=== PATIENT | female | born 1965 | race Caucasian/White ===

== ENCOUNTER 2016-03-15 16:38 | Emergency (ER) | payer OTHER ==
[2016-03-15 18:28] VITALS: BP 115/58
[2016-03-15] MEDS ORDERED: Acetaminophen TAB* 325 MG PO ONE (18:49)
--- NOTE | 2016-03-15 19:05 | UC ---
HPI Febrile Illness - HPI Summary HPI Summary: pt c/o fever, chills and generalized malaise X 12 hours. Pt is on dialysis 3 X' s per week and did not go for dialysis today. - History of Current Complaint Chief Complaint: UCGeneralIllness Time Seen by Provider: 03/15/16 18:39 Hx Obtained From: Patient Onset/Duration: Started Hours Ago, Still Present Timing: Constant Initial Severity: Moderate Current Severity: Mild Aggravating Factors: Nothing Alleviating Factors: Other: - has not tried anything to relieve symptoms Associated Signs and Symptoms: Chills, Myalgia - Additional Pertinent History Diagnosis From Previous Visit: pt has CKD, dialysis 3 X's per week . 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 Taken: Other: - none - Allergy/Home Medications Allergies/Adverse Reactions: Allergies Allergy/AdvReac Type Severity Reaction Status Date / Time No Known Allergies Allergy Verified 03/15/16 18:28 Home Medications: Home Medications Cholecalciferol [Vitamin D3] 50,000 unit PO WEEKLY 03/15/16 [History Confirmed 03/15/16] Torsemide [Torsemide 100 MG] 50 mg PO EVERY OTHER DAY 03/15/16 [History Confirmed 03/15/16] PMH/Surg Hx/FS Hx/Imm Hx Endocrine/Hematology History: Reports: Hx Diabetes - Type 1 diabetes mellitus, Hx Thyroid Disease - hypothyroid, Hx Anemia - CONTROL WITH MED Cardiovascular History: Reports: Hx Coronary Artery Disease - CARDIAC STENT X 2 , Hx Hypertension - CONTROL WITH MEDS, Other Cardiovascular Problems/Disorders - CHOLESTEROL CONTROL WITH MEDS Respiratory History: Denies: Hx Asthma GI History: Denies: Hx Jaundice, Hx Ulcer History: Reports: Hx Chronic Renal Failure, Hx Dialysis Musculoskeletal History: Reports: Hx Arthritis - BILATERAL HANDS, ANKLES, Hx Tendonitis - HANDS, Other Musculoskeletal History - RIGHT RING FINGER TRIGGER Sensory History: Reports: Hx Cataracts - BILATERAL, Hx Contacts or Glasses - GLASSES Denies: Hx Hearing Aid Opthamlomology History: Reports: Hx Cataracts - BILATERAL, Hx Contacts or Glasses - GLASSES Neurological History: Reports: Hx Nerve Disease - DIABETIC NEUROPATHY BILATERAL FEET - Surgical History Surgery Procedure, Year, and Place: TRIGGER RELEASE X 4, ( 1 DONE AT [facility]) . 1989' RIGHT 5th TOE SURGERY,. 06/2012 BILATERAL CATARACT EXTRACTION WITH IOL IMPLANT, [facility]. 2014 CARDIAC STENTS X 2,. FISTULA PLACEMENT. 02/2014 PERTIONEAL DIALYSIS CATHETER INSERTION Hx Anesthesia Reactions: No Infectious Disease History: No Infectious Disease History: Denies: Hx Clostridium Difficile, Hx Hepatitis, Hx Human Immunodeficiency Virus (HIV), Hx of Known/Suspected MRSA, Hx Shingles, Hx Tuberculosis, Hx Known/ Suspected VRE, Hx Known/Suspected VRSA, History Other Infectious Disease, Traveled Outside the [place] in Last 30 Days - Family History Known Family History: Positive: Diabetes - Mom Type II - Social History Occupation: Employed Full-time Alcohol Use: Rare Substance Use Type: Reports: None Smoking Status (MU): Never Smoked Tobacco Review of Systems Constitutional: Fever, Chills, Fatigue Skin: Negative Eyes: Negative ENT: Negative Respiratory: Negative Cardiovascular: Negative Gastrointestinal: Negative Genitourinary: Negative Motor: Negative Neurovascular: Negative Musculoskeletal: Myalgia Neurological: Negative Psychological: Negative All Other Systems Reviewed And Are Negative: Yes Physical Exam Triage Information Reviewed: Yes Appearance: Well-Appearing Vital Signs: Initial Vital Signs Temp 100.8 F 03/15/16 18:20 Pulse 87 03/15/16 18:20 Resp 16 03/15/16 18:20 BP 115/58 03/15/16 18:20 Pulse Ox 97 03/15/16 18:20 Vital Signs Reviewed: Yes Eye Exam: Normal ENT Exam: Normal Neck exam: Normal Respiratory Exam: Normal Cardiovascular: Positive: Murmur:Sys:Grade _?_/ Musculoskeletal Exam: Normal Neurological Exam: Normal Psychological Exam: Normal Skin Exam: Normal Course/Dx - Course Course Of Treatment: I disucssed with the pt that she is to f/u with her bookkeeping teacher tomorrow. additonally, I discussed with the pt that if she has any change in her symptoms that she is to seek a higher level of care as soon as possible. Pt verbalized understanding and agreed to plan of care. - Febrile Illness Differential Diagnoses: Other: - viral syndrome - Diagnoses Clinic Provider Diagnoses: viral syndrome Discharge - Discharge Plan Condition: Stable Disposition: HOME Patient Education Materials: Viral Syndrome (ED)
== END 2016-03-15 19:22 | disposition home or self-care (01) ==
LOC: UCCORT 16:38
DX: B34.9 Viral infection, unspecified (principal); E78.5 Hyperlipidemia, unspecified; I12.9 Hypertensive chronic kidney disease with stage 1 through stage 4 chronic kidney disease, or unspecified chronic kidney disease; N18.9 Chronic kidney disease, unspecified; Z99.2 Dependence on renal dialysis; Z98.61 Coronary angioplasty status; Z98.42 Cataract extraction status, left eye; Z98.41 Cataract extraction status, right eye; Z96.1 Presence of intraocular lens
CPT/HCPCS: 87502; 99212; A9270-GY; G0463

== ENCOUNTER 2016-09-16 16:24 | Emergency (ER) | payer OTHER ==
[2016-09-16 16:33] VITALS: BP 155/78
--- NOTE | 2016-09-16 16:51 | UC ---
Minor Trauma HPI - HPI Summary HPI Summary: 51 yo female slipped going down stairs on 09/11 c/o left sided back pain hurts to lay down and sit hurts to twist/bend and take in a deep breathe unable to sleep last PM - History of Current Complaint Chief Complaint: UCBackPain Stated Complaint: LEFT BACK/HIP PAIN FELL 09/11 Time Seen by Provider: 09/16/16 16:43 Hx Obtained From: Patient Hx Last Menstrual Period: YEARS Onset/Duration: Sudden Onset, Lasting Days Onset Of Pain: Immediate Severity Initially: Moderate Severity Currently: Moderate Pain Intensity: 6 - worse laying down Pain Scale Used: 0-10 Numeric Mechanism Of Injury: Blunt Trauma - fall and hit corner of step Aggravating Factor(s): Ambulation, Coughing, Deep Breaths, Movement, Weight Bearing Alleviating Factor(s): Rest Associated Signs And Symptoms: Positive: Ecchymosis - Allergies/Home Medications Allergies/Adverse Reactions: Allergies Allergy/AdvReac Type Severity Reaction Status Date / Time No Known Allergies Allergy Verified 09/16/16 16:34 Home Medications: Home Medications B-Complex W/ C & Folic Acid [Gabrielle-Kenrick] 1 tab PO DAILY 09/16/16 [History Confirmed 09/16/16] Bp Medicine EVERY OTHER DAY 09/16/16 [History] PMH/Surg Hx/FS Hx/Imm Hx Endocrine History: Diabetes Cardiovascular History: Hypertension GI/ History: Renal Disease - Surgical History Surgical History: Yes Surgery Procedure, Year, and Place: TRIGGER RELEASE X 4, ( 1 DONE AT [facility]) . 1989' RIGHT 5th TOE SURGERY,. 06/2012 BILATERAL CATARACT EXTRACTION WITH IOL IMPLANT, [facility] [place]. 2013 CARDIAC STENTS X 2,. FISTULA PLACEMENT. 02/2014 PERTIONEAL DIALYSIS CATHETER INSERTION - Family History Known Family History: Positive: Cardiac Disease, Hypertension, Diabetes - Mom Type II - Social History Alcohol Use: Rare Substance Use Type: None Smoking Status (MU): Never Smoked Tobacco - Immunization History Most Recent Influenza Vaccination: 01/02 Review of Systems Constitutional: Negative Skin: Bruising Eyes: Negative ENT: Negative Respiratory: Negative Cardiovascular: Negative Gastrointestinal: Negative Genitourinary: Negative Motor: Negative Neurovascular: Negative Musculoskeletal: Myalgia Neurological: Negative Psychological: Negative All Other Systems Reviewed And Are Negative: Yes Physical Exam Triage Information Reviewed: Yes Appearance: Well-Appearing, No Pain Distress, Well-Nourished Vital Signs: Initial Vital Signs Temp 97.5 F 09/16/16 16:29 Pulse 87 09/16/16 16:29 Resp 17 09/16/16 16:29 BP 155/78 09/16/16 16:29 Pulse Ox 98 09/16/16 16:29 Vital Signs Reviewed: Yes Eyes: Positive: Conjunctiva Clear ENT: Positive: Hearing grossly normal. Negative: Nasal congestion, Nasal drainage, Trismus, Muffled/hoarse voice Neck: Positive: Nontender, No Lymphadenopathy Respiratory: Positive: Lungs clear, Normal breath sounds, No respiratory distress Cardiovascular: Positive: RRR, No Murmur Musculoskeletal: Positive: ROM Intact, No Edema Neurological: Positive: Alert Psychological Exam: Normal Skin Exam: Normal Minor Trauma Course/Dx - Differential Dx/Diagnosis Provider Diagnoses: left posterior rib contusion. left gluteal contusion Discharge - Discharge Plan Condition: Stable Disposition: HOME Prescriptions: HYDROcodone/ACETAMIN 5-325 MG* [[place] 5-325 TAB*] 1 tab PO Q4H PRN #20 tab MDD 4 PRN Reason: Pain Patient Education Materials: Contusion in Adults (ED), Rib Contusion (ED) Referrals: Shama Husain, [employer] [Primary Care Provider] - 1 Week (if not better) Additional Instructions: rest ice take narcotic sparingly recheck for new or worsening symptoms Images Front/Back of Body, Lg (Loving): 1 - tender/ecchymotic 2 - tender
--- NOTE | 2016-09-16 17:16 | RAD ---
INDICATION: Injury. Pelvic pain. COMPARISON: February 14, 2014 TECHNIQUE: A single AP view of the pelvis is submitted. FINDINGS: Osseous structures: No acute bony findings SI joints and symphysis: Intact Soft tissues: No acute soft tissue abnormalities. There are vascular calcifications. There are phleboliths. Other: None IMPRESSION: NO ACUTE BONY FINDINGS.
--- NOTE | 2016-09-16 17:24 | RAD ---
INDICATION: Left rib pain COMPARISON: None TECHNIQUE: Multiple views of the ribs were obtained. FINDINGS: Bones: There is no evidence of acute rib fracture. There is a healed posterior lateral left seventh rib fracture LUNGS: The lungs are clear. There is no pneumothorax. Pleural spaces: There is no evidence of hemothorax. Other: None IMPRESSION: NO ACUTE RIB FRACTURE.
== END 2016-09-16 17:49 | disposition home or self-care (01) ==
LOC: UCCORT 16:24
DX: S20.212A Contusion of left front wall of thorax, initial encounter (principal); S30.0XXA Contusion of lower back and pelvis, initial encounter; I10 Essential (primary) hypertension; E11.9 Type 2 diabetes mellitus without complications; W10.9XXA Fall (on) (from) unspecified stairs and steps, initial encounter; Y92.9 Unspecified place or not applicable
CPT/HCPCS: 72170; 99212; G0463

== ENCOUNTER → 2017-05-20 06:58 | Day surgery (SDC) | payer MEDICARE, OTHER ==
--- NOTE | 2017-05-14 23:32 | HP ---
PREOPERATIVE HISTORY AND PHYSICAL: DATE OF ADMISSION/SURGERY: 05/20/17 - [facility] DATE OF OFFICE VISIT/ENCOUNTER: 04/23/17 ATTENDING SURGEON: Pam Carrillo MD * (DICTATED BY MAGDALENA GUZMAN) PROCEDURE: Left index and ring finger trigger finger releases. CHIEF COMPLAINT: Left index and ring finger triggering. HISTORY OF PRESENT ILLNESS: This is a 51-year-old female, who complains of triggering of the left index and ring finger that has been going on for some time now. The index finger is particularly painful. The ring finger triggers and locks more fully. She has had past trigger finger releases and would like to proceed with trigger finger release and forego injection. She is a diabetic. She has chronic renal failure and is on dialysis. She has consented to proceed with surgical intervention at this time. PAST MEDICAL HISTORY: 1. Diabetes. 2. Hypothyroidism. 3. Chronic renal failure/dialysis. 4. History of ketoacidosis. 5. Hypertension. 6. Hypercholesterolemia. 7. Heart disease. 8. Restless legs syndrome. PAST SURGICAL HISTORY: 1. Cardiac stent placement 2013. 2. Right trigger finger and left trigger finger releases. 3. Right foot surgery. 4. Fistula placement in her left arm. 5. Left shoulder surgery. CURRENT MEDICATIONS: 1. Aspirin 325 mg daily. 2. Auryxia 1 g (210 mg). 3. Crestor 10 mg daily. 4. Gabapentin 800 mg daily. 5. Humalog pump. 6. Levothyroxine sodium 100 mcg daily. 7. Lisinopril daily. 8. NovoLog 100 units. 9. Plavix 75 mg daily. 10. Renvela 2.4 g 3 times daily. 11. Ropinirole HCl 0.25 mg 1 to 4 tabs daily as directed. 12. Sodium bicarbonate 650 mg b.i.d. 13. Torsemide 100 mg daily. 14. Vitamin D. ALLERGIES: No known drug allergies. FAMILY MEDICAL HISTORY: Noncontributory. SOCIAL HISTORY: The patient is employed by [employer] in [place]. She denies tobacco use, illicit drug use, and does not drink alcohol. REVIEW OF SYSTEMS: General: Negative for fevers, chills, or night sweats. No known anesthesia problems. HEENT: Negative for headache, lightheadedness, or syncopal episodes. Integumentary: Negative for abrasions, lesions, or open wounds. Cardiothoracic: Positive for hypertension. Negative for chest pain, palpitations, or edema. Pulmonary: Negative for shortness of breath with exertion, chronic cough, and COPD. GI: Negative for nausea, vomiting, diarrhea , constipation, or GERD. : Positive for chronic renal failure. Negative for nocturia or urinary frequency. Musculo-skeletal: Positive for current complaint. Neurological: Negative for paresthesias, numbness, history of seizure, stroke, or epilepsy. Endocrine: Positive for diabetes. Positive for hypothyroid. Hematologic: Positive for easy bruising and bleeding secondary to Plavix. Negative for history of DVT. Infectious Disease: Negative for history of MRSA, hepatitis C, or HIV. PHYSICAL EXAMINATION GENERAL: Well-developed, well-nourished, 51-year-old female in no acute distress. VITAL SIGNS: Height 5 feet 5.5 inches, weight 165 pounds. Blood pressure 103/ 62, pulse rate 78. HEENT: Normocephalic, atraumatic. Pupils are equal, round, and reactive to light and accommodation. Throat is clear. NECK: Supple. No palpable lymph nodes. PULMONARY: Lungs are clear to auscultation bilaterally. No wheezes, rales, or rhonchi. CARDIOVASCULAR: Regular rate and rhythm. S1, S2. No murmurs, rubs, or gallops. No edema. ABDOMEN: Positive bowel sounds, soft, nontender. MUSCULOSKELETAL: On exam of her left hand, she has tenderness to palpation of the index finger and the ring finger. She has locking of the ring finger as well. She lacks some extension of both fingers. She has well-healed incisions at the thumb and middle finger on the same hand from previous trigger finger releases. NEUROLOGICAL: Alert and oriented x3. Cranial nerves II through XII are intact. Sensation is intact to light touch. IMPRESSION: Trigger finger, left index and ring finger. PLAN: The patient is scheduled to undergo a left index and ring finger trigger finger release with Dr. Carrillo on 05/20/17. She will return to the office 10 to 14 days postop for followup and suture removal. A prescription for Ultracet was e- scribed to the patient's pharmacy for postoperative pain management. RIN LOYA, MAGDALENA [id number]/[facility] #: [id number] NICHOLAS
[~2017-05-20 06:58] MED LIST: Buffered Lidocaine 0.9% SYRIN* 5 ML/SYR SYRINGE INTRADERM ONE; Lidocaine 1% INJ* 10 MG/ML 30 ML SDV ONE; Midazolam* 1 MG/ML 2 ML VIAL (2 MG) ONE; Naloxone* 0.4 MG/ML 1 ML VIAL IV PRN; Naloxone* 0.4 MG/ML 10 ML VIAL ONE; Sodium Chloride 0.9%* 10 ML ONE; fentaNYL* 50 MCG/ML 2 ML VIAL (100 MCG VIAL) ONE
[2017-05-20 11:53] VITALS: BP 120/60
--- NOTE | 2017-05-21 02:17 | OP ---
DATE OF OPERATION: 05/20/17 - [facility] DATE OF : 63 SURGEON: Pam Carrillo MD CARTRIDGE FEEDER: MAGDALENA Rocha ANESTHESIA: Local MAC. PRE-OP DIAGNOSIS: Trigger finger, left index and ring. POST-OP DIAGNOSIS: Trigger finger, left index and ring. OPERATIVE PROCEDURE: Trigger finger release, left index and ring fingers. ESTIMATED BLOOD LOSS: Zero. TOURNIQUET TIME: Approximately 15 minutes. INDICATIONS FOR PROCEDURE: aKtie is a 51-year-old female with painful locking of her ring and index fingers on the left hand. She presents for trigger finger release. DESCRIPTION OF PROCEDURE: The patient was brought to the operating room, was given a sedation anesthetic and a local infiltration of 10 cc of 1% plain lidocaine. Skin of her left hand and forearm was prepped and draped in the usual sterile fashion. The hand and forearm were exsanguinated and the Esmarch bandage was used as a tourniquet at her wrist just below her dialysis fistula. A transverse incision was made, centered over the A1 yessi of the index finger and the ring finger of the left hand. We dissected bluntly through the subcutaneous tissue. The digital neurovascular bundles were retracted by the surgical services coordinator, Char Brooke. The A1 pulleys of the index and ringer fingers were released longitudinally with a knife and scissors. The underlying flexor tendons were in good condition. There was some mild tenosynovitis and this was debrided. The wounds were irrigated and the skin edges were reapproximated with 4-0 nylon suture. The wound was dressed with Xeroform, 4x4 , Webril, and an Gunnar wrap. The patient tolerated the procedure well and was brought to the recovery room in good condition. [id number]/[facility] #: [id number] [facility]
== END | disposition home or self-care (01) ==
LOC: OR 06:58 → OREAST 06:58
PROVIDERS: ATTEND Orthopaedic Surgery
DX: M65.322 Trigger finger, left index finger (principal); M65.342 Trigger finger, left ring finger; E11.9 Type 2 diabetes mellitus without complications; Z79.4 Long term (current) use of insulin; Z96.41 Presence of insulin pump (external) (internal); Z79.01 Long term (current) use of anticoagulants; E03.9 Hypothyroidism, unspecified; N18.6 End stage renal disease; Z99.2 Dependence on renal dialysis; I12.9 Hypertensive chronic kidney disease with stage 1 through stage 4 chronic kidney disease, or unspecified chronic kidney disease; E78.00 Pure hypercholesterolemia, unspecified; G25.81 Restless legs syndrome; I51.9 Heart disease, unspecified; Z95.5 Presence of coronary angioplasty implant and graft
CPT/HCPCS: J2250; J2310; J3010

== ENCOUNTER 2017-09-17 18:23 | Emergency (ER) | payer MEDICARE, OTHER ==
[2017-09-17 18:58] VITALS: BP 155/70
--- NOTE | 2017-09-17 19:11 | UC ---
Lower Extremity/Ankle HPI - HPI Summary HPI Summary: Patient states that she fell and rolled her right ankle on her back steps last week. She presents today for ongoing swelling in her ankle and foot plus pain. She notes the pain is vague that she also has a history of diabetic neuropathy. She denies any other injuries offers no other complaints. - History of Current Complaint Chief Complaint: UCLowerExtremity Stated Complaint: RT ANKLE INJURY Time Seen by Provider: 09/17/17 18:47 Hx Obtained From: Patient Hx Last Menstrual Period: YEARS Onset/Duration: Sudden Onset Pain Intensity: 6 Aggravating Factor(s): Ambulation Able to Bear Weight: Yes - Allergies/Home Medications Allergies/Adverse Reactions: Allergies Allergy/AdvReac Type Severity Reaction Status Date / Time No Known Allergies Allergy Verified 09/17/17 18:58 Home Medications: Home Medications Vit B Comp No.3/Folic/C/Biotin [Gabrielle-Kenrick Rx] 1 tab PO DAILY 09/17/17 [History Confirmed 09/17/17] PMH/Surg Hx/FS Hx/Imm Hx - Additional Past Medical History Additional PMH: ESRD, RLS, neuropathy Endocrine History: Diabetes, Thyroid Disease Cardiovascular History: Cardiac Disease, Hypertension - Surgical History Surgical History: Yes Surgery Procedure, Year, and Place: TRIGGER RELEASE X 4, (3-[place], 1- [facility]). RIGHT 5th TOE SURGERY. BILATERAL CATARACT EXTRACTION WITH IOL 2012 [facility]. 2014 CARDIAC STENTS X 2,- [facility] FISTULA PLACEMENT 2013 [facility]. 2015 PERITONEAL DIALYSIS CATHETER INSERTION and REMOVAL 2016 [facility] - Family History Known Family History: Positive: Cardiac Disease, Hypertension, Diabetes - Mom Type II - Social History Occupation: Employed Full-time Alcohol Use: None Substance Use Type: None Smoking Status (MU): Never Smoked Tobacco - Immunization History Most Recent Influenza Vaccination: 01/02 Vaccination Up to Date: Yes Review of Systems Constitutional: Negative Skin: Negative Eyes: Negative ENT: Negative Respiratory: Negative Cardiovascular: Negative Gastrointestinal: Negative Genitourinary: Negative Motor: Negative Neurovascular: Negative Musculoskeletal: Other: - L ankle / foot pain/swelling Neurological: Numbness - diabetic neuropathy Psychological: Negative All Other Systems Reviewed And Are Negative: Yes Physical Exam Triage Information Reviewed: Yes Appearance: No Pain Distress Vital Signs: Initial Vital Signs Temp 98.1 F 09/17/17 18:49 Pulse 85 09/17/17 18:49 Resp 16 09/17/17 18:49 BP 155/70 09/17/17 18:49 Pulse Ox 97 09/17/17 18:49 Vital Signs Reviewed: Yes Eyes: Positive: Conjunctiva Clear ENT: Positive: Normal ENT inspection Neck: Positive: Supple, Nontender, No Lymphadenopathy Respiratory: Positive: Lungs clear, Normal breath sounds Cardiovascular: Positive: RRR, No Murmur Abdomen Description: Positive: Nontender, No Organomegaly, Soft Bowel Sounds: Positive: Present Musculoskeletal Exam: Other - shunt LUE Musculoskeletal: Positive: Other: - RLE: hip, knee, achilles are atruamtic. R and and foot with swelling and generalized tendernes. Foot has gross s/v/m function. Diagnostics - Radiology No standard instances Radiology Interpretation Completed By: Radiologist - MPRESSION: 1. MINIMALLY DISPLACED DISTAL FIBULAR MALLEOLI OR FRACTURE DESCRIBED ABOVE. 2. INCIDENTALLY NOTED IS ATHEROSCLEROTIC CALCIFICATION OF THE VISUALIZED INFRAPOPLITEAL AND PEDAL ARTERIES. Lower Extremity Course/Dx - Course Course Of Treatment: fx distal fibula. - Differential Dx/Diagnosis Provider Diagnoses: Mildly displaced Fx R distal fibula Discharge - Sign-Out/Discharge Documenting (check all that apply): Patient Departure - Discharge Plan Condition: Stable Disposition: HOME Patient Education Materials: Ankle Fracture (DC) Referrals: Shama Husain NP [Primary Care Provider] - If Needed Davian Calvillo MD [Medical Doctor] - As Soon As Possible Additional Instructions: USE THE CAM BOOT UNTIL CLEARED. REMOVE THE BOOT DAILY AND INSPECT THE LEG AND FOOT GIEN YOUR DIABETIC HISTORY. - Billing Disposition and Condition Condition: STABLE Disposition: Home Attestation Statement User Type: Provider - I was available for consult. This patient was seen by the NIA. The patient was not presented to, seen by, or examined by me. -Melissa
--- NOTE | 2017-09-17 19:40 | RAD ---
INDICATION: Lateral right ankle pain after a fall one week earlier. TECHNIQUE: 3 views of the right ankle and 3 views of the right foot were obtained. FINDINGS: At the right fibular malleolus there is a minimally displaced fracture with the distal fracture fragment displaced 3 mm laterally relative to the shaft of the fibula. Remaining visualized bones are intact and appropriately aligned. There is no significant widening of the ankle mortise. Incidentally noted is calcified atherosclerosis of the TOBIN and [employer]ON[employer] INTERNSHIP extending into the pedal arteries. IMPRESSION: 1. MINIMALLY DISPLACED DISTAL FIBULAR MALLEOLI OR FRACTURE DESCRIBED ABOVE. 2. INCIDENTALLY NOTED IS ATHEROSCLEROTIC CALCIFICATION OF THE VISUALIZED INFRAPOPLITEAL AND PEDAL ARTERIES.
--- NOTE | 2017-09-17 19:40 | RAD ---
INDICATION: Lateral right ankle pain after a fall one week earlier. TECHNIQUE: 3 views of the right ankle and 3 views of the right foot were obtained. FINDINGS: At the right fibular malleolus there is a minimally displaced fracture with the distal fracture fragment displaced 3 mm laterally relative to the shaft of the fibula. Remaining visualized bones are intact and appropriately aligned. There is no significant widening of the ankle mortise. Incidentally noted is calcified atherosclerosis of the TOBIN and RADIO MECHANIC APPRENTICE extending into the pedal arteries. IMPRESSION: 1. MINIMALLY DISPLACED DISTAL FIBULAR MALLEOLI OR FRACTURE DESCRIBED ABOVE. 2. INCIDENTALLY NOTED IS ATHEROSCLEROTIC CALCIFICATION OF THE VISUALIZED INFRAPOPLITEAL AND PEDAL ARTERIES.
== END 2017-09-17 19:59 | disposition home or self-care (01) ==
LOC: UCCORT 18:23
DX: S82.831A Other fracture of upper and lower end of right fibula, initial encounter for closed fracture (principal); W19.XXXA Unspecified fall, initial encounter; Y93.9 Activity, unspecified; Y92.9 Unspecified place or not applicable; E11.9 Type 2 diabetes mellitus without complications; I10 Essential (primary) hypertension
CPT/HCPCS: 99213; G0463

== ENCOUNTER 2017-11-06 18:16 | Observation (INO) | payer MEDICARE, OTHER ==
--- OUTSIDE RECORDS SUMMARY | 2017-11-06 18:57 | XMS REPORT ---
:1965 External Reference #:[id number] Author Organization [facility] Address [address] [place] [address] Phone [phone] Care Team Providers Name Role Phone Sanjay Chavez MD Primary Care Physician Unavailable Payers Type Date Identification Numbers Payment Provider Subscriber Medicare Primary Policy Number: [id number] Medicare Katie Pimentel PayID: [id number] [address] [place] [address] [facility] Part B Policy Number: [id number] [facility] Health Plan o Katie Pimentel Group Number: [id number] Attn [facility] PayID: [id number] [address] [place] [address] Problems Date Description Provider Status Onset: 07/06/2015 Polyneuropathy Tracie Mendenhall M.D. Active Onset: 07/06/2015 Dizziness Tracie Mendenhall M.D. Active Onset: 07/06/2015 Restless legs Tracie Mendenhall M.D. Active Onset: 07/06/2015 Chronic renal failure Tracie Mendenhall M.D. Active Family History Date Family Member(s) Problem(s) Comments General No Current Problems General Unknown Social History Type Date Description Comments Marital Status Single Lives With Boyfriend Occupation Currently Working ETOH Use Denies alcohol use Smoking Patient has never smoked Recreational Drug Use Denies Drug Use Daily Caffeine Consumes on average 1 cup of regular coffee per day Daily Caffeine Consumes on average 2 sodas per day Exercise Type/Frequency Exercises sporadically Allergies, Adverse Reactions, Alerts Date Description Reaction Status Severity Comments 04/22/2012 NKDA active Medications Medication Date Status Form Strength Qnty SIG Indications Ordering Provider Crestor Active Tablets 10mg 1 by Unknown /0000 mouth every day Levothyroxine Active Tablets 100mcg 30tab 1 by Unknown Sodium /0000 s mouth every day Torsemide Active Tablets 100mg 1` po qd Unknown Aspirin Active Tablets 325mg 1 by Unknown /0000 mouth every day Plavix Active Tablets 75mg 1 by Unknown /0000 mouth every day Gabapentin Active Tablets 800mg 1 by Unknown /0000 mouth Q day Humalog Active Solution 15ml Pump Unknown / Cartridge Vitamin D High Active Capsules 1 by Unknown Potency /0000 mouth every day Novolog Active Solution 100Unit/M Unknown /0000 L Auryxia Active Tablets 1GM 210 Mann, /0000 mg(Fe) MD Charles Gabrielle-Kenrick Active Tablets 1 by Unknown /0000 mouth every day Ultracet 04/23 Hx Tablets 37.5-325m 15tab 1 tab by g s mouth Carrillo, - every 4-6 M.D. 09/17 hours needed pain Ropinirole HCL 07/05 Hx Tablets 0.25mg 120ta 1-4 tabs G25.81 Tracie M. bs by mouth Stackman, - every at M.D. 09/17 hs directed Tramadol 02/22 Hx Tablets 37.5-325m 30tab 1 -2 tabs Pam Hydrochloride/Acet g s by mouth Carrillo, aminophen - every 4-6 M.D. 04/24 hours needed pain Ultracet 04/22 Hx Tablets 37.5-325m 30tab 1 - 2 po g s q4-6hr Carrillo, - prn pain M.D. 02/21 Humulin R Hx Solution 100Unit/M 1unit siding Unknown /0000 L s scale - 02/21 Lantus Hx Solution 100Unit/M 6Vial 30 Units Unknown /0000 L s qd - 02/21 Lisinopril Hx Tablets 30tab 1 po qd Unknown / s - 09/17 Hydrochlorothiazid Hx Tablets 25mg 30tab 1 po qd Unknown e /0000 s - 02/21 Sodium Bicarbonate Hx Tablets 650mg 1 po bid Unknown /0000 - 09/17 Metolazone Hx Tablets 5mg 1 po Unknown /0000 every - other 07/04 day.. Renvela Hx Packet 2.4gm 3 times Unknown /0000 per day - with 09/17 Vitamin D Hx Capsules [id number] Johnathan (Ergocalciferol) /0000 MD Charles - 09/17 Vital Signs Date Vital Result Comment 10/13/2017 Height 65.5 inches 5'5.50" Weight 159.00 lb Heart Rate 90 /min BP Systolic Sitting 146 mmHg BP Diastolic Sitting 84 mmHg Respiratory Rate 18 /min Pain Level 0 BMI (Body Mass Index) 26.1 kg/m2 09/18/2017 Height 65.5 inches 5'5.50" Weight 162.56 lb BP Systolic Sitting 138 mmHg BP Diastolic Sitting 68 mmHg Respiratory Rate 16 /min Pain Level 5 BMI (Body Mass Index) 26.6 kg/m2 06/26/2017 Height 65.5 inches 5'5.50" Weight 165.00 lb Heart Rate 80 /min BP Systolic 139 mmHg BP Diastolic 81 mmHg Respiratory Rate 16 /min Body Temperature 98.0 F Pain Level 0 BMI (Body Mass Index) 27.0 kg/m2 05/29/2017 Height 65.5 inches 5'5.50" Weight 165.00 lb Heart Rate 92 /min Respiratory Rate 14 /min Pain Level 1 BMI (Body Mass Index) 27.0 kg/m2 04/23/2017 Height 65.5 inches 5'5.50" Weight 165.00 lb BP Systolic 103 mmHg BP Diastolic 62 mmHg Respiratory Rate 16 /min Pain Level 8 BMI (Body Mass Index) 27.0 kg/m2 07/06/2015 Height 65.5 inches 5'5.50" Weight 158.00 lb Heart Rate 54 /min BP Systolic Sitting 132 mmHg BP Diastolic Sitting 78 mmHg Respiratory Rate 14 /min BMI (Body Mass Index) 25.9 kg/m2 04/26/2015 Weight 169.00 lb Heart Rate 80 /min BP Systolic Sitting 128 mmHg BP Diastolic Sitting 86 mmHg 04/05/2015 Height 66 inches 5'6" Weight 160.00 lb Body Temperature 98.2 F BMI (Body Mass Index) 25.8 kg/m2 02/22/2015 Height 66 inches 5'6" Weight 160.00 lb Heart Rate 84 /min BP Systolic Sitting 132 mmHg BP Diastolic Sitting 88 mmHg BMI (Body Mass Index) 25.8 kg/m2 04/22/2012 Height 66 inches 5'6" Weight 150.00 lb Heart Rate 78 /min BP Systolic Sitting 120 mmHg BP Diastolic Sitting 82 mmHg BMI (Body Mass Index) 24.2 kg/m2 Results Test Date Test Result H/L Range Note Laboratory test finding 05/20/2017 Point of Care Glucose 151 mg/dL High 70 -100 1 Laboratory test finding 05/20/2017 Point of Care Glucose 184 mg/dL High 70 -100 2 Laboratory test finding 03/24/2015 Point of Care Glucose 200 mg/dL High 74 -106 3 Laboratory test finding 03/24/2015 Point of Care Glucose 216 mg/dL High 74 -106 4 1 Parlor Chaperone: [id number] Parlor Chaperone: [id number] 3 Parlor Chaperone: [id number] CARA ROSA 4 Parlor Chaperone: [id number] VANDANA NOWAK Procedures Date CPT Code Description Status 09/18/2017 38230 Short Leg Cast Completed 05/20/2017 00925 Trigger Finger Release Incision / Tendon Sheath Completed Incision 05/20/2017 03322 Trigger Finger Release Incision / Tendon Sheath Completed Incision 05/20/2017 41721 Trigger Finger Release Incision / Tendon Sheath Completed Incision 05/20/2017 36652 Trigger Finger Release Incision / Tendon Sheath Completed Incision 03/24/2015 78485 Trigger Finger Release Incision / Tendon Sheath Completed Incision 03/24/2015 58335 Trigger Finger Release Incision / Tendon Sheath Completed Incision 04/28/2012 53629 Trigger Finger Release Incision / Tendon Sheath Completed Incision Encounters Type Date Location Provider CPT E/M Dx Office Visit 10/13/2017 [place] [address] S82.61xD 1:15p Of [facility] [place] Office Visit 09/18/2017 [place] [address] S82.61xA 3:15p Of [facility] [place] Office Visit 04/23/2017 [facility] Pam Carrillo 37576 M65.342 11:00a Of [facility] M65.322 Office Visit 07/06/2015 1:00p [facility] Tracie Mendenhall 15822 G25.81 Services Of [facility] Molly E10.42 R42 Office Visit 02/22/2015 1:40p [facility] Pam Carrillo, 60179 M65.341 [facility] 04/09/2012 8:00a [facility] Pam Carrillo, 53457 727.03 Of [facility] Barnes Plan of Care Future Appointment(s):11/10/2017 1:00 pm - Davian Calvillo MD at [facility] AT Dfuwnyri60/27/2018 - Davian Calvillo, MDS82.61xD Disp fx of lateral malleolus of r fibula, 7thDNew Xrays:Ankle Right 3+VWSFollow up:Follow up: 4 weeks
--- OUTSIDE RECORDS SUMMARY | 2017-11-06 18:57 | XMS REPORT ---
:1965 External Reference #:[id number] Author Organization [employer] Address [address] [place] [address] Phone [phone] Care Team Providers Name Role Phone Sanjay Chavez MD Primary Care Physician Unavailable Payers Type Date Identification Numbers Payment Provider Subscriber Medicare Primary Policy Number: [id number] Medicare Katie Pimentel PayID: [id number] [place] [address] [facility] Part B Policy Number: [id number] [facility] Health Plan o Katie Pimentel Group Number: [id number] Attn [facility] PayID: [id number] [address] [place] [address] Problems Date Description Provider Status Onset: 07/06/2015 [...] s mouth every day Torsemide Active Tablets 50mg 1` po qd Unknown /0000 on Non Dialysis Days Aspirin Active Tablets 325mg 1 by Unknown /0000 mouth every day Plavix Active Tablets 75mg 1 by Unknown /0000 mouth every day Gabapentin Active Tablets 600mg 2 tabs Unknown /0000 by mouth at bedtime Vitamin D High Active Capsules 1 by Unknown Potency /0000 mouth once a week Novolog Active Solution 100Unit/M via pump Unknown /0000 L Gabrielle-Kenrick Active Tablets 1 by Unknown /0000 mouth every day Calcium Acetate Active Tablets 667mg 3 tabs Unknown (Phos Binder) /0000 by mouth every meal which is twice daily Ultracet 04/23 Hx Tablets 37.5-325m 15tab 1 [...] Hx Tablets 30tab 1 po qd Unknown /0000 s - 09/17 Hydrochlorothiazid Hx Tablets 25mg 30tab 1 po qd Unknown e /0000 s - 02/21 Sodium Bicarbonate Hx Tablets 650mg 1 po bid Unknown /0000 - 09/17 Humalog Hx Solution 15ml Pump Unknown /0000 Cartridge - 11/05 Metolazone Hx Tablets 5mg 1 po Unknown /0000 every - other 07/04 day.. Renvela Hx Packet 2.4gm 3 times Unknown /0000 per day - with 09/17 Vitamin D Hx Capsules [id number] Mann, (Ergocalciferol) /0000 MD Charles - 09/17 Auryxia Hx Tablets 1GM 210 Mann, /0000 mg(Fe) MD Charles - 10/26 Vital Signs Date Vital Result Comment 11/06/2017 Height 65.5 inches 5'5.50" Heart Rate 90 /min BP Systolic 148 mmHg BP Diastolic 80 mmHg Respiratory Rate 20 /min Pain Level 5 O2 % BldC Oximetry 98 % 10/27/2017 Height 65.5 inches 5'5.50" Weight 159.00 lb BP Systolic Sitting 142 mmHg BP Diastolic Sitting 70 mmHg Respiratory Rate 16 /min Pain Level 10 when walking, 4 when not BMI (Body Mass Index) 26.1 kg/m2 10/13/2017 Height 65.5 inches 5'5.50" Weight 159.00 [...] 216 mg/dL High 74 -106 4 1 [employer]ast Director: [id number] 2 Newscast Director: [id number] 3 Newscast Director: [id number] CARA ROSA 4 Newscast Director: [id number] VANDANA NOWAK Procedures Date CPT Code Description Status 10/27/2017 57608 Rad Exam; Foot Limited Completed 10/13/2017 40277 Rad Exam; Ankle Comp Completed 09/18/2017 42285 Short Leg Cast Completed 05/20/2017 35543 Trigger Finger Release Incision / Tendon Sheath Completed Incision 05/20/2017 02704 Trigger Finger Release Incision / Tendon Sheath Completed Incision 05/20/2017 95597 Trigger Finger Release Incision / Tendon Sheath Completed Incision 05/20/2017 89515 Trigger Finger Release Incision / Tendon Sheath Completed Incision 03/24/2015 16227 Trigger Finger Release Incision / Tendon Sheath Completed Incision 03/24/2015 41232 Trigger Finger Release Incision / Tendon Sheath Completed Incision 04/28/2012 13783 Trigger Finger Release Incision / Tendon Sheath Completed Incision Encounters Type Date Location Provider CPT E/M Dx Office Visit 10/27/2017 [place] [address] S90.31xA 2:45p Of [facility] [place] Office Visit 10/13/2017 [place] [address] S82.61xD 1:15p Of [facility] [place] Office Visit 09/18/2017 [place] [address] S82.61xA 3:15p Of [facility] AT [place] Office Visit 04/23/2017 [facility] Pam Carrillo 23970 M65.342 11:00a Of [facility] M65.322 Office Visit 07/06/2015 1:00p [facility]ie Mendenhall, 82950 G25.81 Services Of [facility] Barnes E10.42 R42 Office Visit 02/22/2015 1:40p [facility] Pam Carrillo 33709 M65.341 Of Sarah PENALOZA [place] Molly Office Visit 04/09/2012 8:00a [facility] Pam Carrillo 25703 727.03 Of [facility] Barnes Plan of Care Future Appointment(s):11/07/2017 3:15 pm - Eyad Selas MD at [facility]
[2017-11-06] MEDS ORDERED: Acetaminophen TAB* 325 MG PO PRN (19:49)
[2017-11-06] MEDS ORDERED: oxyCODONE/Acetamin 5/325 MG* TAB PO PRN ×2 (19:49)
[2017-11-06] MEDS ORDERED: Ondansetron INJ* 2 MG/ML VIAL IV PRN (19:49)
[2017-11-06] MEDS ORDERED: ceFAZolin 1 GM in Dextrose (*) 1 GM/50 ML BAG IVPB ONE (19:57)
[2017-11-06 20:04] LABS: Hematocrit 35 % (35-47); Mean Corpuscular HGB Conc 34 g/dl (31-36); Mean Corpuscular Hemoglobin 30 pg (27-31); Mean Corpuscular Volume 88 fL (80-97); Platelet Count 210 10^3/ul (150-450); Red Cell Distribution Width 15 % (10.5-15); White Blood Count 8.7 10^3/ul (3.5-10.8)
[2017-11-06 20:05] LABS: INR 0.9 (0.77-1.02)
--- NOTE | 2017-11-06 20:13 | HP ---
H&P (Free Text) History and Physical: Orthopedic Surgery H&P Date: 11/06/17 Chief Complaint: Right heel pain. History: 52F diabetic on dialysis who reportspain and swelling of her right heel over the last day. She does not recall specific injury. She does have diabetic neuropathy. She has been followed for a right ankle fracture by Dr. Calvillo. The pain is located at the right heel and is constant moderate, sharp. Pain worse with ROM and lessened when rested. There is associated swelling and bruising. Review of Systems: Negative for fever, recent visual changes, difficulty swallowing, chest pain, shortness of breath, abdominal pain, hematuria, diffuse weakness or lack of coordination, and diffuse rash. Meds Prior to Visit: Ultracet Ropinirole HCL Lisinopril Crestor Levothyroxine Sodium Torsemide Aspirin Plavix Gabapentin Sodium Bicarbonate Humalog pump Vitamin D Renvela Vitamin D (Ergocalciferol) Novolog Auryxia Allergies: No Known Drug Allergy PMH: Chronic Kidney Disease Diabetes Type I Thyroid Disease Hypercholesterolemia Hypertension Neuropathy Surgical Hx: Carotid Stenting, AV Fistula, Trigger Finger Release, Shoulder FH: non contributory SH: Lives With: Boyfriend.Occupation: Currently Working. Personal Habits: Smoking: Patient has never smoked.Alcohol: Denies alcohol use.Exercise Type: Exercises sporadically. Physical Examination: Constitutional: Temp Pulse Resp BP Pulse Ox 100.6 F 95 16 182/90 97 11/06/17 18:20 11/06/17 18:20 11/06/17 18:20 11/06/17 18:20 11/06/17 18:20 General appearance is healthy and non-septic in no acute distress. Cardiovascular: Pulse examination demonstrates positive peripheral pulses with brisk capillary refill. There are no varicosities. RRR. Lungs cleart to auscultation b/l. Abdomen: Soft and nontender Lymphatic: No lymphadenopathy appreciated. Skin: Bilateral upper and lower extremity examination demonstrates no ulcerative lesions. Psychiatric / Neurological: Appropriate affect. Alert and oriented to person, place and time. There is no significant abnormality in coordination appreciated. Normoreflexive deep tendon reflex of the affected extremity. Musculoskeletal: Bilateral upper extremities and contralateral lower extremity show full range of motion with no evidence of instability and no tenderness with palpation and 5 /5 strength. There is no gross deformity. There is marked swelling and bruising about the right heel There is a prominence posteriorly with tenting and threatening of the skin. The area over the bony prominence is blanched. She is tender at the calcaneus. Decreased Sensation to light touch 5/5 motor strength except plantar flexion Flexes and extends ankle and toes. Imaging: X-rays were obtained, and independently interpreted and show a displaced posterior calcaneus beak fracture Labs: WBC 8.7 HCT 35 Platelets 210 INR 0.9 Impression and Plan: Right displaced calcaneal beak fracture with posterior skin threatening. This will quickly progress to an open fracture without urgent reduction and fixation. This is a big problem, especially in a diabetic. I explained this to her at length. We discussed the risks/benefits and pros/cons of both surgical and non-surgical treatment options. The plan is for surgery urgently for a right calcaneus fracture open reduction and internal fixation. Eyad Seals MD
[2017-11-06] MEDS ORDERED: ceFAZolin 1 GM ADVAN(*) 1 GM ADDV.VIAL IVPB ONE (20:20)
[2017-11-06] MEDS ORDERED: Succinylcholine* 20 MG/ML 10 ML VIAL ONE (20:23)
[2017-11-06] MEDS ORDERED: Propofol* 10 MG/ML 20 ML BTL IV PUSH ONE (20:23)
[2017-11-06] MEDS ORDERED: Lidocaine 2% PF * 5 ML VIAL ONE (20:23)
[2017-11-06] MEDS ORDERED: Midazolam* 1 MG/ML 2 ML VIAL (2 MG) ONE (20:24)
[2017-11-06] MEDS ORDERED: fentaNYL* 50 MCG/ML 2 ML VIAL (100 MCG VIAL) ONE (20:24)
[2017-11-06] MEDS ORDERED: Bupivacaine 0.5% SDV PF* 30ML VIAL ONE (20:32)
--- NOTE | 2017-11-06 20:39 | ED ---
Lower Extremity - HPI Summary HPI Summary: This patient is a 52 year old F presenting to [facility] accompanied by her with a chief complaint of 8/10 right heel pain since stepping out of her bathtub and slamming it on the floor a couple of weeks ago (around 10/24/17, pt is unsure of exact date). She endorses swelling and erythema. Pt notes that she was using an immobility boot, but it was too uncomfortable, so she has resorted back to using crutches. PMHx hemodialysis, ESRD, 3x a week Friday, Friday, and Friday. She notes that she did not dialyze Friday (11/05/17). Pt denies all pain medication use. PMHx DM, HTN, HLD, thyroid disease. - History of Current Complaint Chief Complaint: EDExtremityLower Stated Complaint: RT FT INJURY Time Seen by Provider: 11/06/17 19:36 Hx Obtained From: Patient Hx Last Menstrual Period: YEARS Mechanism Of Injury: Direct Blow Onset of Pain: Prior to Arrival Onset/Duration: Still Present Severity Initially: Moderate Severity Currently: Moderate Pain Intensity: 7 Pain Scale Used: 0-10 Numeric Timing: Constant Location: Is Discrete @ - calcaneus (R) Associated Signs And Symptoms: Positive: Swelling, Redness, Fever Aggravating Factor(s): Standing, Ambulation, Weight Bearing Alleviating Factor(s): Nothing Able to Bear Weight: No - Allergies/Home Medications Allergies/Adverse Reactions: Allergies Allergy/AdvReac Type Severity Reaction Status Date / Time No Known Allergies Allergy Verified 09/17/17 18:58 PMH/Surg Hx/FS Hx/Imm Hx Endocrine/Hematology History: Reports: Hx Diabetes - Type I, Hx Thyroid Disease - hypothyroid, Hx Anemia - given mircera at dialysis if needed Cardiovascular History: Reports: Hx Coronary Artery Disease - CARDIAC STENT X 2 , Hx Hypercholesterolemia, Hx Hypertension, Other Cardiovascular Problems/ Disorders - hypercholesterolemia, stents x2 in 2013 Respiratory History: Denies: Hx Asthma GI History: Denies: Hx Jaundice, Hx Ulcer History: Reports: Hx Chronic Renal Failure, Hx Dialysis Musculoskeletal History: Reports: Hx Arthritis - ankles, Hx Tendonitis - HANDS, Hx of Fracture(s) - fibula (R), Other Musculoskeletal History - trigger finger issue Sensory History: Reports: Hx Cataracts - bilateral, Hx Contacts or Glasses - glasses Denies: Hx Legally Blind, Hx Deafness, Hx Hearing Aid Opthamlomology History: Reports: Hx Cataracts - bilateral, Hx Contacts or Glasses - glasses Denies: Hx Legally Blind EENT History: Denies: Hx Deafness Neurological History: Reports: Hx Nerve Disease - diabetic neuropathy - feet, Other Neuro Impairments/Disorders - restless leg syndrome Psychiatric History: Denies: Hx Autism, Hx Schizophrenia - Surgical History Surgery Procedure, Year, and Place: TRIGGER RELEASE X 4, (3-[place], 1- [facility]). 1989' RIGHT 5th TOE SURGERY. BILATERAL [place]ARACT [place] [facility] [place] 2014 CARDIAC STENTS X 2,- [facility]. FISTULA PLACEMENT 2013 [facility]. 2015 PERITONEAL DIALYSIS CATHETER INSERTION and REMOVAL 2016 - [facility] Hx Anesthesia Reactions: No Infectious Disease History: No Infectious Disease History: Denies: Hx Clostridium Difficile, Hx Hepatitis, Hx Human Immunodeficiency Virus (HIV), Hx of Known/Suspected MRSA, Hx Shingles, Hx Tuberculosis, Hx Known/ Suspected VRE, Hx Known/Suspected VRSA, History Other Infectious Disease, Traveled Outside the [place] in Last 30 Days - Family History Known Family History: Positive: Cardiac Disease, Hypertension, Diabetes - Mom Type II - Social History Lives: With Family Alcohol Use: None Substance Use Type: Reports: None Smoking Status (MU): Never Smoked Tobacco Review of Systems Positive: Fever Positive: no symptoms reported Positive: Arthralgia - right ankle, right heel, Decreased ROM, Edema Positive: Other - erythema of distal RLE All Other Systems Reviewed And Are Negative: Yes Physical Exam - Summary Physical Exam Summary: VITAL SIGNS: Reviewed. GENERAL: Patient is a well-developed and nourished female who is lying comfortable in the stretcher. Patient is not in any acute respiratory distress. HEAD AND FACE: No signs of trauma. No ecchymosis, hematomas or skull depressions. No sinus tenderness. EYES: PERRLA, EOMI x 2, No injected conjunctiva, no nystagmus. EARS: Hearing grossly intact. Ear canals and tympanic membranes are within normal limits. MOUTH: Oropharynx within normal limits. NECK: Supple, trachea is midline, no adenopathy, no JVD, no carotid bruit, no c- spine tenderness, neck with full ROM. CHEST: Symmetric, no tenderness at palpation LUNGS: Clear to auscultation bilaterally. No wheezing or crackles. CVS: Regular rate and rhythm, S1 and S2 present, no murmurs or gallops appreciated. Good pulses ABDOMEN: Soft, non-tender. No signs of distention. No rebound no guarding, and no masses palpated. Bowel sounds are normal. EXTREMITIES: No cyanosis or clubbing. BLE 1+ edema. Tenderness in calcaneus area of her right foot. NEURO: Alert and oriented x 3. No acute neurological deficits. Speech is normal and follows commands. SKIN: Dry and warm Triage Information Reviewed: Yes Vital Signs On Initial Exam: Initial Vitals Temp Pulse Resp BP Pulse Ox 100.6 F 95 16 182/90 97 11/06/17 18:20 11/06/17 18:20 11/06/17 18:20 11/06/17 18:20 11/06/17 18:20 Vital Signs Reviewed: Yes Diagnostics - Vital Signs Vital Signs Temp Pulse Resp BP Pulse Ox 11/06/17 20:03 97.8 F 93 18 171/94 97 11/06/17 18:20 100.6 F 95 16 182/90 97 - Laboratory Lab Results: Lab Results 11/06/17 11/06/17 11/06/17 Range/Units 19:44 19:44 19:44 WBC 8.7 (3.5-10.8) 10^3/ul RBC 4.00 (4.00-5.40) 10^6/ul Hgb 12.0 (12.0-16.0) g/dl Hct 35 (35-47) % MCV 88 (80-97) fL MCH 30 (27-31) pg MCHC 34 (31-36) g/dl RDW 15 (10.5-15) % Plt Count 210 (150-450) 10^3/ul MPV 8.0 (7.4-10.4) um3 INR (Anticoag Therapy) 0.90 (0.77-1.02) APTT 32.5 (26.0-36.3) seconds Sodium 136 (135-145) mmol/L Potassium 4.5 (3.5-5.0) mmol/L Chloride 95 L (101-111) mmol/L Carbon Dioxide 27 (22-32) mmol/L Anion Gap 14 H (2-11) mmol/L BUN 71 H (6-24) mg/dL Creatinine 8.32 H (0.51-0.95) mg/dL Est GFR ( Amer) 6.1 (>60) Est GFR (Non-Af Amer) 5.0 (>60) BUN/Creatinine Ratio 8.5 (8-20) Glucose 231 H (70-100) mg/dL Uric Acid 6.0 (2.3-6.6) mg/dL Calcium 9.5 (8.6-10.3) mg/dL C-Reactive Protein 9.88 H (<8.01) mg/L Blood Type Antibody Screen 11/06/17 Range/Units 19:44 WBC (3.5-10.8) 10^3/ul RBC (4.00-5.40) 10^6/ul Hgb (12.0-16.0) g/dl Hct (35-47) % MCV (80-97) fL MCH (27-31) pg MCHC (31-36) g/dl RDW (10.5-15) % Plt Count (150-450) 10^3/ul MPV (7.4-10.4) um3 INR (Anticoag Therapy) (0.77-1.02) APTT (26.0-36.3) seconds Sodium (135-145) mmol/L Potassium (3.5-5.0) mmol/L Chloride (101-111) mmol/L Carbon Dioxide (22-32) mmol/L Anion Gap (2-11) mmol/L BUN (6-24) mg/dL Creatinine (0.51-0.95) mg/dL Est GFR ( Amer) (>60) Est GFR (Non-Af Amer) (>60) BUN/Creatinine Ratio (8-20) Glucose (70-100) mg/dL Uric Acid (2.3-6.6) mg/dL Calcium (8.6-10.3) mg/dL C-Reactive Protein (<8.01) mg/L Blood Type Pending Antibody Screen Pending Result Diagrams: 11/06/17 19:44 11/06/17 19:44 Lab Statement: Any lab studies that have been ordered have been reviewed, and results considered in the medical decision making process. - Radiology CXR Xray Interpretation: No Acute Changes Radiology Interpretation Completed By: ED Physician - No acute pathology. Pending official imaging report. RLE XR Xray Interpretation: Positive (See Comments) Radiology Interpretation Completed By: ED Physician - Calcaneal fx of RLE. Pending official imaging report. Lower Extremity Course/Dx - Course Assessment/Plan: This patient is a 52-year-old female who presents to the emergency department with a chief complaint of having right ankle and right foot pain. Patient reports that she thinks she rolled the ankle after Labor Day and since then the patient is having pain. Patient has history of diabetes , hypertension and end-stage renal disease on hemodialysis Friday , Friday and Friday. The last time she had hemodialysis was Friday. X-ray of the right ankle impression: Positive calcaneal fracture. Chest x-ray impression: no acute pathology. Blood work without any significant abnormality except for anion gap of 14, chloride of 95, BUNs a 71, creatinine 8.32. CRP is 9.88. Dr. Modi from orthopedics review her case and he will admitting the patient to his services for further w/u and management. He also discussed the case with Dr. Guerrero and she will do a medical consult. Patient is hemolyticus stable alert and oriented 3. - Diagnoses Differential Diagnosis/HQI/PQRI: Positive: Bursitis, Cellulitis, Contusion, Fracture (Closed), Sprain, Strain Provider Diagnoses: Calcaneal fracture, End stage renal disease - Physician Notifications Discussed Care Of Patient With: Ly Time Discussed With Above Provider: 19:40 Instructed by Provider To: Other - Requests bloodwork, accepts admission. Discharge - Sign-Out/Discharge Documenting (check all that apply): Patient Departure - admit - Discharge Plan Condition: Fair Disposition: ADMITTED TO [facility] - Billing Disposition and Condition Condition: FAIR Disposition: Admitted to [facility] - Attestation Statements Document Initiated by Pro: Yes Documenting Scribe: Jc Miller Provider For Whom Pro is Documenting (Include Credential): Dr. Edward Myrick MD Scribe Attestation: Jc Siu scribed for Dr. Edward Myrick MD on 11/06/17 at 204. Scribe Documentation Reviewed: Yes Provider Attestation: The documentation as recorded by the Jc enciso accurately reflects the service I personally performed and the decisions made by me, Dr. Edward Myrick MD
[2017-11-06] MEDS ORDERED: Rocuronium* 10 MG/ML VIAL ONE (20:42)
[2017-11-06] MEDS ORDERED: Acetaminophen IV 1GM/100ML * 1,000 MG/100 ML VIAL IVPB ONE (21:43)
[2017-11-06] MEDS ORDERED: DiMENhydriNATE IV* 50 MG/ML VIAL IV PUSH PRN (21:43)
[2017-11-06] MEDS ORDERED: oxyCODONE TAB* 5 MG TAB PO PRN (21:43)
[2017-11-06] MEDS ORDERED: Naloxone* 0.4 MG/ML 1 ML VIAL IV PRN (21:43)
[2017-11-06] MEDS ORDERED: Neostigmine Methylsulfate* 1 MG/ML 10 ML VIAL (1 mg/ml) ONE (21:49)
[2017-11-06] MEDS ORDERED: Glycopyrrolate IV* 0.2 MG/ML 1 ML VIAL ONE (21:49)
[2017-11-06] MEDS ORDERED: HYDROmorphone INJ1* 1 MG/ML SYRINGE ONE (21:52)
--- NOTE | 2017-11-06 22:14 | OP ---
Operative Report - Blank - Operative Report Date of Operation: 11/06/17 Note: PATIENT: Katie Pimentel DATE OF : 1965 DATE OF SURGERY: 11/06/2017 SURGEON: Eyad eSals MD CARE ANALYST: none ANESTHESIOLOGIST: Dr. Gutierrez PREOPERATIVE DIAGNOSIS: Right displaced calcaneus beak fracture POSTOPERATIVE DIAGNOSIS: Right displaced calcaneus beak fracture OPERATION: Open reduction and internal fixation of the right calcaneus beak fracture ANESTHESIA: GETA IMPLANTS: Two synthes cannulated 4.5mm screws TOURNIQUET TIME: Less than one hour with a well-padded thigh tourniquet at 250mmHg SPECIMENS: none ESTIMATED BLOOD LOSS: minimal COMPLICATIONS: none STATUS: Stable from the operating room to the recovery room and then to the hospital floor. INDICATIONS FOR PROCEDURE: Katie sustained a displaced calcaneal beak fracture with threatened skin. Both operative and non-operative treatment alternatives were reviewed. Further, the nature and risks of surgery were reviewed in careful detail, in the office as well as the pre-operative holding area. Our discussions regarding the risks of surgery included, but were not limited to, infection, wound problems, nerve injury, neuroma, RSD, persistent symptoms, blood clot, loss of fixation and reduction, skin breakdown, need for further surgery, Achilles weakness, failure of the surgery, and even the remote chance of catastrophic complication, including loss of limb. DESCRIPTION OF PROCEDURE: The patient was seen in the preoperative holding unit and informed written consent was obtained. The appropriate extremity was marked. The patient was then brought to the operating room and carefully positioned on the operating room table. Anesthesia was induced. All bony prominences were padded with great care. A well-padded thigh tourniquet was placed. A chlorhexidine based pre- scrub was performed followed by a chloraprep prep and drape in standard sterile fashion. A surgical safety pause was then conducted in which we confirmed the appropriate patient, extremity, planned procedure, availability of equipment, indication and administration of prophylactic antibiotics, and DVT prophylaxis in the form of a compression boot on the non-surgical extremity. I began with Esmarch exsanguination of the limb and inflated the tourniquet. I made a longitudinal incision just lateral to the Achilles tendon at the level of the superior calcaneus. A large pointed reduction clamp was used to reduce the fracture. Fluoroscopy was used to confirm the reduction. Guidewires for the cannulated screws were placed perpendicular to the fracture, exiting the inferior cortex of the calcaneus. The depths were measured and 2 partially threaded 4.5 mm screws were placed, one with a washer. Final fluoroscopic images were obtained. The wound was copiously irrigated and meticulously closed in layers utilizing 3- 0 Monocryl and 3-0 nylon. A sterile dressing was then applied followed by a splint with the ankle in a plantarflexed position. The patient was then awakened from anesthesia and transferred to the recovery room in stable condition. There were no complications. All needle and sponge counts were correct at the end of the case. ATTESTATION: I attest I was present and scrubbed and performed the critical portions of the procedure myself. POSTOPERATIVE PLAN: The plan is for [id number] in a splint. Follow-up in 1 week for a wound check.
[2017-11-07] MEDS ORDERED: Levothyroxine TAB* 100 MCG TAB PO SCH (06:00)
--- NOTE | 2017-11-07 07:26 | RAD ---
INDICATION: Medical clearance. COMPARISON: Comparison is made with prior chest x-ray study from February 19, 2012. TECHNIQUE: Dual-energy PA views of the chest were obtained. FINDINGS: The heart is within normal limits in size. Mediastinal and hilar contours appear within normal limits. The lungs are clear. No pleural effusion is present. There is an old healed fracture of the seventh lateral rib. IMPRESSION: NO EVIDENCE FOR ACTIVE CARDIOPULMONARY DISEASE. R0
--- NOTE | 2017-11-07 07:32 | RAD ---
INDICATION: Right ankle operative reduction internal fixation. COMPARISON: Comparison is made with a prior x-ray study of the right ankle from November 06, 2017. TECHNIQUE: 15.2 seconds of intermittent fluoroscopic guidance were provided and 2 spot films of the right ankle were obtained in the operating room. FINDINGS: 2 surgical screws have been placed stabilizing the fracture fragment arising from the posterior dorsal surface of the calcaneus. The bones are in normal alignment. IMPRESSION: INTRAOPERATIVE CONTROL FILMS. CPT II Codes: G9500
[2017-11-07 08:04] LABS: ABS Basophils 0.1 10^3/ul (0-0.2); ABS Eosinophils 0 10^3/ul (0-0.6); ABS Lymphocytes 0.8 10^3/ul (1.0-4.8); ABS Monocytes 0.4 10^3/ul (0-0.8); ABS Neutrophils 6.4 10^3/ul (1.5-7.7); ABS Nucleated RBC 0 10^3/ul; Eosinophil % 0.3 % (0-6); Hematocrit 33 % (35-47); Hemoglobin 11.2 g/dl (12.0-16.0); Lymphocyte % 10.3 % (25-47); Mean Corpuscular HGB Conc 33 g/dl (31-36); Mean Corpuscular Hemoglobin 30 pg (27-31); Mean Corpuscular Volume 89 fL (80-97); Mean Platelet Volume 7.9 um3 (7.4-10.4); Nucleated Red Blood Cells % 0.1; Platelet Count 183 10^3/ul (150-450); Red Blood Count 3.76 10^6/ul (4.00-5.40); Red Cell Distribution Width 15 % (10.5-15); White Blood Count 7.7 10^3/ul (3.5-10.8)
[2017-11-07 08:08] LABS: INR 0.93 (0.77-1.02)
[2017-11-07] MEDS: Calcium Acetate CAP* 667 MG PO SCH ×3 (08:55→21:32)
[2017-11-07] MEDS ORDERED: Clopidogrel TAB* 75 MG PO SCH (09:00)
[2017-11-07] MEDS ORDERED: [UNRECOGNIZED DRUG - REMARK] PO SCH (09:00)
[2017-11-07] MEDS ORDERED: Aspirin EC TAB* 325 MG PO SCH (09:00)
--- NOTE | 2017-11-07 11:10 | PN ---
Subjective Date of Service: 11/07/17 Interval History: Pt stated that she must have fractured her R heel when stepping down from her bathtub. S/p ORIF of r heel on Objective Active Medications: Acetaminophen (Tylenol Tab*) 650 mg PO Q6H PRN PRN Reason: pain and temp Amlodipine Besylate (Norvasc Tab*) 5 [facility] Aspirin (Ecotrin Ec Tab*) 325 mg PO QAM [facility] Last Admin: 11/07/17 08:55 Dose: 325 mg Atorvastatin Calcium (Lipitor*) 20 mg PO QPM [facility]; Protocol Calcium Acetate (Phoslo Cap*) 2,001 mg PO TID WITH MEALS [facility] Last Admin: 11/07/17 08:55 Dose: 2,001 mg Cinacalcet (Sensipar Tab*) 60 mg PO S[facility] Clopidogrel Bisulfate (Plavix Tab*) 75 mg PO QAM [facility] Last Admin: 11/07/17 08:55 Dose: 75 mg Gabapentin (Neurontin Cap(*)) 1,200 mg PO QPM [facility] Levothyroxine Sodium (Synthroid Tab*) 100 mcg PO 0600 [facility] Last Admin: 11/07/17 06:32 Dose: 100 mcg (Vit B Comp No.3/Folic/C/Biotin [Gabrielle -[facility]rick Rx Tablet] 1 Tab) 1 tab PO DAILY [facility] Last Admin: 11/07/17 09:04 Dose: Not Given Ondansetron HCl (Zofran Inj*) 4 mg IV Q6H PRN PRN Reason: NAUSEA Oxycodone/Acetaminophen (Percocet 5/325 Tab*) 1 tab PO Q3H PRN PRN Reason: PAIN - MODERATE Oxycodone/Acetaminophen (Percocet 5/325 Tab*) 2 tab PO Q3H PRN PRN Reason: PAIN - MODERATE Torsemide (Demadex*) 50 mg PO [facility] Vital Signs - 8 hr 11/07/17 11/07/17 03:05 03:51 Temperature 97.5 F 97.5 F Pulse Rate 74 77 Respiratory 16 18 Rate Blood Pressure 128/67 127/69 (mmHg) O2 Sat by Pulse 100 99 Oximetry Oxygen Devices in Use Now: Nasal Cannula Appearance: 52 yo f in nAD, aAOx3 Eyes: No Scleral Icterus, PERRLA Ears/Nose/Mouth/Throat: NL Teeth, Lips, Gums, Mucous Membranes Moist Neck: NL Appearance and Movements; NL JVP Respiratory: Symmetrical Chest Expansion and Respiratory Effort, Clear to Auscultation Cardiovascular: NL Sounds; No Murmurs; No JVD, RRR Abdominal: NL Sounds; No Tenderness; No Distention Lymphatic: No Cervical Adenopathy Extremities: No Clubbing, Cyanosis, - - R foot in splint. HD fistula in L arm with positive thrill Skin: No Rash or Ulcers, No Nodules or Sclerosis Neurological: Alert and Oriented x 3, NL Muscle Strength and Tone Result Diagrams: 11/07/17 07:35 11/07/17 07:35 Additional Lab and Data: Lab Results 11/06/17 11/06/17 11/06/17 Range/Units 19:44 19:44 19:44 WBC 8.7 (3.5-10.8) 10^3/ul RBC 4.00 (4.00-5.40) 10^6/ul Hgb 12.0 (12.0-16.0) g/dl Hct 35 (35-47) % MCV 88 (80-97) fL MCH 30 (27-31) pg MCHC 34 (31-36) g/dl RDW 15 (10.5-15) % Plt Count 210 (150-450) 10^3/ul MPV 8.0 (7.4-10.4) um3 INR (Anticoag Therapy) 0.90 (0.77-1.02) APTT 32.5 (26.0-36.3) seconds Sodium 136 (135-145) mmol/L Potassium 4.5 (3.5-5.0) mmol/L Chloride 95 L (101-111) mmol/L Carbon Dioxide 27 (22-32) mmol/L Anion Gap 14 H (2-11) mmol/L BUN 71 H (6-24) mg/dL Creatinine 8.32 H (0.51-0.95) mg/dL Est GFR ( Amer) 6.1 (>60) Est GFR (Non-Af Amer) 5.0 (>60) BUN/Creatinine Ratio 8.5 (8-20) Glucose 231 H (70-100) mg/dL Uric Acid 6.0 (2.3-6.6) mg/dL Calcium 9.5 (8.6-10.3) mg/dL C-Reactive Protein 9.88 H (<8.01) mg/L Blood Type Antibody Screen 11/06/17 Range/Units 19:44 WBC (3.5-10.8) 10^3/ul RBC (4.00-5.40) 10^6/ul Hgb (12.0-16.0) g/dl Hct (35-47) % MCV (80-97) fL MCH (27-31) pg MCHC (31-36) g/dl RDW (10.5-15) % Plt Count (150-450) 10^3/ul MPV (7.4-10.4) um3 INR (Anticoag Therapy) (0.77-1.02) APTT (26.0-36.3) seconds Sodium (135-145) mmol/L Potassium (3.5-5.0) mmol/L Chloride (101-111) mmol/L Carbon Dioxide (22-32) mmol/L Anion Gap (2-11) mmol/L BUN (6-24) mg/dL Creatinine (0.51-0.95) mg/dL Est GFR ( Amer) (>60) Est GFR (Non-Af Amer) (>60) BUN/Creatinine Ratio (8-20) Glucose (70-100) mg/dL Uric Acid (2.3-6.6) mg/dL Calcium (8.6-10.3) mg/dL C-Reactive Protein (<8.01) mg/L Blood Type Pending Antibody Screen Pending Microbiology and Other Data: Microbiology 11/07/17 02:20 Nasal Screen MRSA (PCR) - Final Nasal Mrsa Not Detected Assess/Plan/Problems-Billing Assessment: 52 yo F, DM1(on insulin pump, ESRD(on HD in [place], HTN, hypothyroidism seen by medicine in consult s/p ORIF of R heel on 11/06/17 - Patient Problems (1) Fracture of right heel Comment: s/p surgery on 11/06/17, -as per ortho (2) ESRD (end stage renal disease) Comment: cont HD HD days are Mon-Wed-Fri (3) Diabetes mellitus type 1 Comment: cont pt's insulin pump (4) Hypercholesterolemia Comment: cotn statin (5) Hypothyroidism Comment: cont Synthroid (6) DVT prophylaxis Comment: will d/w ortho re: tx Status and Disposition: medicine, consult Thank you Will follow daily
[2017-11-07] MEDS ORDERED: Insulin LISPRO* 1 UNITS UNIT SUBCUT ONE (13:00)
[2017-11-07] MEDS ORDERED: Heparin VIAL(*) 5000 UNITS/ML VIAL (FIVE THOUSAND) SUBCUT SCH (14:00)
--- NOTE | 2017-11-07 15:07 | PN ---
Progress Note - Progress Note Date of Service: 11/07/17 SOAP: Subjective: POD #1 Right calcaneus ORIF, doing well. Denies pain, awaiting dialysis today. Denies CP/SOB, n/v, f/c. Objective: Laboratory Results - last 24 hr 11/06/17 11/06/17 11/06/17 19:44 19:44 19:44 WBC 8.7 RBC 4.00 Hgb 12.0 Hct 35 MCV 88 MCH 30 MCHC 34 RDW 15 Plt Count 210 MPV 8.0 Neut % (Auto) Lymph % (Auto) [place] % (Auto) Eos % (Auto) Baso % (Auto) Absolute Neuts (auto) Absolute Lymphs (auto) Absolute Monos (auto) Absolute Eos (auto) Absolute Basos (auto) Absolute Nucleated RBC Nucleated RBC % INR (Anticoag Therapy) 0.90 APTT 32.5 Sodium 136 Potassium 4.5 Chloride 95 L Carbon Dioxide 27 Anion Gap 14 H BUN 71 H Creatinine 8.32 H Est GFR ( Amer) 6.1 Est GFR (Non-Af Amer) 5.0 BUN/Creatinine Ratio 8.5 Glucose 231 H POC Glucose (mg/dL) Uric Acid 6.0 Calcium 9.5 Total Creatine Kinase C-Reactive Protein 9.88 H Blood Type Antibody Screen 11/06/17 11/06/17 11/06/17 19:44 21:36 22:27 WBC RBC Hgb Hct MCV MCH MCHC RDW Plt Count MPV Neut % (Auto) Lymph % (Auto) [place] % (Auto) Eos % (Auto) Baso % (Auto) Absolute Neuts (auto) Absolute Lymphs (auto) Absolute Monos (auto) Absolute Eos (auto) Absolute Basos (auto) Absolute Nucleated RBC Nucleated RBC % INR (Anticoag Therapy) APTT Sodium Potassium Chloride Carbon Dioxide Anion Gap BUN Creatinine Est GFR ( Amer) Est GFR (Non-Af Amer) BUN/Creatinine Ratio Glucose POC Glucose (mg/dL) 173 H 140 H Uric Acid Calcium Total Creatine Kinase C-Reactive Protein Blood Type O Negative Antibody Screen Negative 11/07/17 11/07/17 11/07/17 07:35 07:35 07:35 WBC 7.7 RBC 3.76 L Hgb 11.2 L Hct 33 L MCV 89 MCH 30 MCHC 33 RDW 15 Plt Count 183 MPV 7.9 Neut % (Auto) 83.7 H Lymph % (Auto) 10.3 L [place] % (Auto) 4.9 Eos % (Auto) 0.3 Baso % (Auto) 0.8 Absolute Neuts (auto) 6.4 Absolute Lymphs (auto) 0.8 L Absolute Monos (auto) 0.4 Absolute Eos (auto) 0 Absolute Basos (auto) 0.1 Absolute Nucleated RBC 0 Nucleated RBC % 0.1 INR (Anticoag Therapy) 0.93 APTT Sodium 135 Potassium 5.2 H Chloride 97 L Carbon Dioxide 26 Anion Gap 12 H BUN 72 H Creatinine 8.33 H Est GFR ( Amer) 6.1 Est GFR (Non-Af Amer) 5.0 BUN/Creatinine Ratio 8.6 Glucose 104 H POC Glucose (mg/dL) Uric Acid Calcium 9.1 Total Creatine Kinase 58 C-Reactive Protein Blood Type Antibody Screen 11/07/17 11/07/17 08:27 12:08 WBC RBC Hgb Hct MCV MCH MCHC RDW Plt Count MPV Neut % (Auto) Lymph % (Auto) [place] % (Auto) Eos % (Auto) Baso % (Auto) Absolute Neuts (auto) Absolute Lymphs (auto) Absolute Monos (auto) Absolute Eos (auto) Absolute Basos (auto) Absolute Nucleated RBC Nucleated RBC % INR (Anticoag Therapy) APTT Sodium Potassium Chloride Carbon Dioxide Anion Gap BUN Creatinine Est GFR ( Amer) Est GFR (Non-Af Amer) BUN/Creatinine Ratio Glucose POC Glucose (mg/dL) 104 H 205 H Uric Acid Calcium Total Creatine Kinase C-Reactive Protein Blood Type Antibody Screen Assessment: POD #1 Right calcaneus ORIF Plan: PT for crutch training D/C when dialysis complete and pt able to ambulate NWB RLE F/u with Dr. Seals next week for wound check
[2017-11-07 15:59] VITALS: BP 145/66
--- NOTE | 2017-11-07 16:00 | CONS ---
CC: Shama Husain NP; Dr. Seals; Dr. Hartman, Nephrology, [place], [place]; Dr. Mcclelland * CONSULTATION REPORT: DATE OF CONSULT: 11/07/17 PRIMARY CARE PROVIDER: Shama Husain NP. CHIEF COMPLAINT: 1. Right heel pain. 2. Swelling in the right heel. HISTORY OF PRESENT ILLNESS: Ms. Pimentel is a 52-year-old female patient, she carries a history of type 1 diabetes, history of nephropathy, history of end- stage renal disease, hypothyroidism, history of hyperlipidemia, hypertension, CAD, history of fibula fracture sustained in August of this year and a history of retinopathy, who comes in to the ER today after being referred here from an orthopedist in [place], Dr. Calvillo. The patient had been following with Dr. Calvillo for the fibula fracture and right ankle fracture. The patient noticed the last couple of days, she has had progressive worsening pain and swelling in that right heel. She does not recall any trauma to this, but she does state that she has been getting out of a bathtub and setting her feet down hard, possibly the last several weeks ever since the right leg was fractured. She states that she noticed definitely in the last couple of days, there has been significant amount of pain, swelling. She denied any open areas or wounds. She came into our ER after outpatient x-rays found that she had a calcaneal fracture. She denied any chest pain, shortness of breath, fevers, or chills. She is evaluated in the PACU. She said she is not feeling any pain, currently she is feeling well. She denies having any chest pain or shortness of breath. She denied again any visual changes. No vomiting or diarrhea. She has extensive past medical history and because of this, we were asked to evaluate in consult. PAST MEDICAL HISTORY: Significant for: 1. Type 1 diabetes. 2. Neuropathy. 3. End-stage renal disease. 4. Hypothyroidism. 5. Hyperlipidemia. 6. Hypertension. 7. Right fibula fracture and right ankle fracture. 8. CAD. 9. Retinopathy. PAST SURGICAL HISTORY: She has had: 1. Heart catheterization with cardiac stenting x2 about 4 years ago. 2. AV fistula. 3. Cataract extraction. 4. Left shoulder arthroplasty. 5. Trigger finger release. MEDICATIONS: Home meds according to her recall and we are going to try to clarify this tomorrow include: 1. PhosLo 2001 mg p.o. t.i.d. with meals. 2. Sensipar 60 mg on non-dialysis days, Friday, Friday, , and Friday. 3. Aspirin 325 mg daily. 4. Amlodipine 5 mg on Friday, Friday, , Friday. 5. Torsemide 50 mg p.o. Friday, Friday, , Friday. 6. Vitamin D3 50,000 units p.o. weekly. 7. Insulin NovoLog pump. 8. Synthroid 100 mcg p.o. daily. 9. Neurontin 1200 mg p.o. at bedtime. 10. Plavix 75 mg daily. 11. Gabrielle-Kenrick 1 tablet daily. 12. Crestor 10 mg p.o. q.p.m. 13. Mircera at dialysis as needed. ALLERGIES TO MEDICATIONS: Include no known drug allergies. FAMILY HISTORY: Her mother was a type 2 diabetic. Her father in an accident when she was very young. SOCIAL HISTORY: She does not smoke, does not drink. Surrogate decision maker is her , Jose. REVIEW OF SYSTEMS: There is no documented fever. She denied having any significant weight change. There was no double vision. She is denying having any ear discharge. There was no rhinorrhea. There was no sore throat. No thyroid enlargement. She denied having any chest pain. There is no orthopnea. There is no nocturnal dyspnea. She denies having any abdominal pain. There was no nausea, no vomiting. No dysuria, no frequency. No seizure, no loss of consciousness. No pruritus, and no skin ulcerations. Review of 14 systems completed, all others negative. PHYSICAL EXAM: Blood pressure 158/91, pulse of 79, respirations are 16, O2 sat 98% on 2 L, temperature 97.5. General: At this time, Ms. Pimentel is a 52-year- old female patient. She was evaluated in the PACU setting. She does not appear to be in any acute distress. She appears to be well nourished and well developed. HEENT: Head: Atraumatic and normocephalic. Eyes: EOMs are intact. Sclerae were anicteric and not pale. Throat: Oral mucosa appears to be moist. No oropharyngeal erythema. Neck was supple. Lungs were clear to auscultation bilaterally. No wheezes, rales, or rhonchi. Heart: Sounds S1, S2. She had a regular rate and rhythm. There were no murmurs, rubs, or gallops. Abdomen was soft. It was flat and nontender. Bowel sounds present. Extremities: Pulses were 2+. She has good CSM checks intact to that right lower extremity; that is the operative leg. She has 5/5 strength in the upper extremities. Neurologically, she is awake, alert, oriented x3. She had no gross focal deficits. Her skin grossly intact with the exception she does have an incision to the right lower extremity, but that is covered with a dressing and splint. DIAGNOSTIC STUDIES/LAB DATA: Revealing a WBC of 8.7, RBC of 4.0, hemoglobin 12.0, hematocrit of 35, platelet count 210. INR was 0.90, PTT of 32.5. Sodium is 136, potassium was 4.5, chloride of 95, bicarb was 27, BUN was 71, creatinine of 8.32, glucose of 231. CRP of 9.8. She had an x-ray done in outpatient setting today, which showed a calcaneal fracture on the right. She had a chest x-ray obtained today, which showed normal chest, I did not appreciate any acute infiltrates or effusion. Old medical records are reviewed. ASSESSMENT AND PLAN: Ms. Pimentel is a 52-year-old female patient coming into the ER today after being referred here by her orthopedist for a right calcaneal fracture with a significant past medical history. We were asked to evaluate in consult. Recommendations at this point are: 1. Status post right calcaneal fracture with open reduction internal fixation. I will defer further management to Dr. Seals and his team. 2. Type 1 diabetes. I recommend continuing her insulin pump and checking fingersticks a.c., h.s. 3. End-stage renal disease. Continue her meds as prescribed. I will touch base with Nephrology in the morning. She will need to be dialyzed; her last dialysis was on Friday, but we will get in touch with Dialysis. I will hold off on the LR and IV fluids and encourage p.o. fluids, as I did not want to fluid overload her. She does not have a need for emergent dialysis at this point. 4. Hypothyroidism. Continue her Synthroid. 5. Neuropathy. Continue her gabapentin. 6. Hyperlipidemia. Continue Crestor. 7. Hypertension. Continue meds as prescribed. 8. Coronary artery disease. Continue her aspirin, statin, Plavix therapy. 9. History of retinopathy. Follow with PCP. 10. DVT prophylaxis. We will defer to the primary team. 11. Code status. She is full code. 12. Fluids, electrolytes, and nutrition. Again, she can have a renal diet. TIME SPENT: On the consult was approximately 60 minutes, greater than half the time was spent going over the plan of care with the patient and implementing plan of care. I did discuss the plan of care with my attending, Dr. Guerrero; she is in agreement. MALENA MART, MADDIE [id number]/[facility] #: [id number] NICHOLAS
[2017-11-07] MEDS ORDERED: Heparin DIALYSIS ONLY(*) 1,000 UNITS/ML VIAL DIALYSIS ONE (17:00)
[2017-11-07] MEDS ORDERED: Atorvastatin* 20 MG TAB PO SCH (18:00)
[2017-11-07] MEDS ORDERED: Gabapentin CAP(*) 400 MG PO SCH (18:00)
[2017-11-08] MEDS ORDERED: Cinacalcet TAB* 30 MG PO SCH (09:00)
[2017-11-08] MEDS ORDERED: Torsemide TAB* 100 MG PO SCH (09:00)
[2017-11-08] MEDS ORDERED: amLODIPine TAB* 5 MG PO SCH (09:00)
--- NOTE | 2017-11-10 03:47 | CONS ---
CC: Mally Valdes * NEPHROLOGY CONSULTATION: DATE OF CONSULT: 11/07/17 HISTORY OF PRESENT ILLNESS: Ms. Pimentel is a 52-year-old female with a history of end-stage renal disease secondary to diabetes mellitus. Her diabetes has been complicated by retinopathy and neuropathy. She does not know how she fractured her heel. She thinks it might have been getting out of the bathtub. Nevertheless, she presented with pain to the right heel and had a calcaneal fracture, which was repaired last night. She is doing much better at the present time. She has also had a right ankle fracture. PAST MEDICAL HISTORY: Significant for hypertension. She has a history of atherosclerotic cardiovascular disease and has 2 stents. She has a history of nontoxic nodular goiter. She has a functional fistula in her left arm. MEDICATIONS: Her medications include: 1. Ultracet. 2. Ropinirole. 3. Lisinopril. 4. Crestor. 5. Levothyroxine. 6. Torsemide. 7. Aspirin. 8. Plavix. 9. Gabapentin. 10. Sodium bicarbonate. 11. Humalog pump. 12. Vitamin D. 13. Renvela. 14. She also takes Auryxia as a phosphate binder. ALLERGIES: She has no medical allergies. REVIEW OF SYSTEMS: Reveals no visual disturbances. No swallowing difficulties. No heat or cold intolerance. No chest pain. No shortness of breath. No nausea or vomiting. She still makes urine. She has no edema. Her interdialytic weight gains are usually fairly low. PHYSICAL EXAM: She is afebrile. Her blood pressure is 127/69, respirations are 18, pulse is 77. She is anicteric. Her extraocular muscles are intact. Mucous membranes are moist. There is no jugular venous distention. Her chest is clear. Heart revealed a regular rhythm without murmurs. Abdomen is soft and nontender. She had no edema. There is a cast on her right leg. LABORATORY DATA: A review of her laboratory values reveals a white count of 7.7 , hemoglobin of 11.2. Sodium 135, potassium 5.2, chloride 97, total CO2 26, BUN 72, creatinine 8.3. IMPRESSION: 1. Calcaneal fracture. 2. End-stage renal disease secondary to diabetes mellitus, type 2. 3. Diabetes mellitus, type 2. 4. Hypertension. PLAN: She will be dialyzed this afternoon and there is a good chance that she will be going home after dialysis. I have discussed the case with Dr. Manley. [id number]/[facility] #: [id number] NICHOLAS
== END 2017-11-07 21:30 | disposition home or self-care (01) ==
LOC: ED 18:16 → OR 19:49 → ED 20:00 → SSU 11-07 00:51 → INTOOBSV 11-07 00:51
PROVIDERS: ADMIT Orthopaedic Surgery; ATTEND Internal Medicine
PROC: 0QSL04Z Reposition Right Tarsal with Internal Fixation Device, Open Approach (ICD-10-PCS; principal; 2017-11-07)
DX: S92.001A Unspecified fracture of right calcaneus, initial encounter for closed fracture (principal); X58.XXXA Exposure to other specified factors, initial encounter; I25.10 Atherosclerotic heart disease of native coronary artery without angina pectoris; I12.9 Hypertensive chronic kidney disease with stage 1 through stage 4 chronic kidney disease, or unspecified chronic kidney disease; E10.22 Type 1 diabetes mellitus with diabetic chronic kidney disease; N18.6 End stage renal disease; Z79.4 Long term (current) use of insulin; Z99.2 Dependence on renal dialysis; E10.40 Type 1 diabetes mellitus with diabetic neuropathy, unspecified; Z95.5 Presence of coronary angioplasty implant and graft; E78.00 Pure hypercholesterolemia, unspecified; E03.9 Hypothyroidism, unspecified; Z79.899 Other long term (current) drug therapy; Z79.01 Long term (current) use of anticoagulants; Z79.82 Long term (current) use of aspirin
CPT/HCPCS: 36415; 71045; 76000; 80048; 82550; 84550; 85025; 85027; 85610; 85730; 86140; 86850; 86900; 86901; 87641; 99285; A9270-GY; G0378; J0330; J0690; J1170; J1644; J2250; J2704; J2710; J3010

== ENCOUNTER 2017-11-12 16:42 | Inpatient (IN) | payer MEDICARE, OTHER ==
--- OUTSIDE RECORDS SUMMARY | 2017-11-12 16:46 | XMS REPORT ---
:1965 External Reference #:[id number] Author Organization [employer] Address [address] [facility] [place] [address] Phone [phone] Care Team Providers Name Role Phone Sanjay Chavez MD Primary Care Physician Unavailable Payers Type Date Identification Numbers Payment Provider Subscriber Medicare Primary Policy Number: [id number] Medicare Katie Pimentel PayID: [id number] [address] [place] [address] [facility] Part B Policy Number: [id number] [facility] Health Plan o Katie Pimentel Group Number: [id number] [employer] PayID: [id number] [address] [place] [address] Problems Date Description Provider Status Onset: 07/06/2015 [...] Form Strength Qnty SIG Indications Ordering Provider Oxycodone HCL 11/07 Active Tablets 5mg 20tab 1 tabs by Eyad s mouth Bozena, every 4-6 MD hours as needed Aspirin 11/07 Active Tablets 325mg 30tab 1 by Eyad s mouth Bozena, every day MD until post op visit Crestor Active Tablets 10mg 1 by Unknown [...] /0000 L s scale - 02/21 Lantus 00 Hx Solution 100Unit/M 6Vial 30 Units Unknown /0000 L s qd - 02/21 Lisinopril Hx Tablets 30tab 1 po qd Unknown /0000 s - 09/17 Hydrochlorothiazid Hx Tablets 25mg 30tab 1 po qd Unknown e /0000 s - 02/21 Sodium Bicarbonate Hx Tablets 650mg 1 po bid Unknown /0000 - 09/17 Humalog Hx Solution 15ml Pump Unknown / Cartridge - 11/05 Metolazone Hx Tablets 5mg 1 po Unknown /0000 every - other 07/04 day.. Renvela Hx Packet 2.4gm 3 times Unknown / per day - with 09/17 Vitamin D Hx Capsules [id number] Mann, (Ergocalciferol) /0000 MD Charles - 09/17 Auryxia Hx Tablets 1GM 210 Mann, /0000 mg(Fe) MD Charles - 10/26 Vital Signs Date Vital Result Comment 11/12/2017 Height 65.5 inches 5'5.50" Weight 159.00 lb Heart Rate 88 /min BP Systolic 138 mmHg BP Diastolic 64 mmHg Respiratory Rate 18 /min Pain Level 3 BMI (Body Mass Index) 26.1 kg/m2 11/06/2017 Height 65.5 inches 5'5.50" Heart Rate [...] Test Result H/L Range Note Laboratory test 11/06/2017 Point of Care 140 mg/dL High 70-100 1 finding Glucose Laboratory test 11/06/2017 Point of Care 173 mg/dL High 70-100 2 finding Glucose Inr/Protime 11/06/2017 Inr 0.90 0.77-1.02 Laboratory test 11/06/2017 Partial Thrombo 32.5 seconds 26.0-36.3 finding Time PTT CBC No Diff 11/06/2017 White Blood Count 8.7 10^3/uL 3.5-10.8 Red Blood Count 4.00 10^6/uL 4.00-5.40 Hemoglobin 12.0 g/dL 12.0-16.0 Hematocrit 35 % 35-47 Mean Corpuscular Volume 88 fL 80-97 Mean Corpuscular Hemoglobin 30 pg 27-31 Mean Corpuscular HGB Conc 34 g/dL 31-36 Red Cell Distribution Width 15 % 10.5-15 Platelet Count 210 10^3/uL 150-450 Mean Platelet Volume 8.0 um3 7.4-10.4 Basic Metabolic Panel 11/06/2017 Sodium 136 mmol/L 135-145 Potassium 4.5 mmol/L 3.5-5.0 Chloride 95 mmol/L Low 101-111 Co2 Carbon Dioxide 27 mmol/L 22-32 Anion Gap 14 mmol/L High 2-11 Glucose 231 mg/dL High 70-100 Blood Urea Nitrogen 71 mg/dL High 6-24 Creatinine 8.32 mg/dL High 0.51-0.95 BUN/Creatinine Ratio 8.5 8-20 Calcium 9.5 mg/dL 8.6-10.3 Egfr Non- 5.0 >60 Egfr 6.1 >60 3 Laboratory test finding 11/06/2017 Uric Acid 6.0 mg/dL 2.3-6.6 C Reactive Protein 9.88 mg/L High <8.01 Laboratory test finding 05/20/2017 Point of Care Glucose 151 mg/dL High 70 -100 4 Laboratory test finding 05/20/2017 Point of Care Glucose 184 mg/dL High 70 -100 5 Laboratory test finding 03/24/2015 Point of Care Glucose 200 mg/dL High 74 -106 6 Laboratory test finding 03/24/2015 Point of Care Glucose 216 mg/dL High 74 -106 7 1 Medical Technologist Hematology: [id number] 2 Medical Technologist Hematology: [id number] 3 Because ethnic data is not always readily available, this report includes an eGFR for both -Americans and non- Americans. The National Kidney Disease Education Program (NKDEP) does not endorse the use of the MDRD equation for patients that are not between the ages of 18 and 70, are , have extremes of body size, muscle mass, or nutritional status, or are non- or non-. According to the National Kidney Foundation, irrespective of diagnosis, the stage of the disease is based on the level of kidney function: Stage Description GFR(mL/min/1.73 m(2)) 1 Kidney damage with normal or decreased GFR 90 2 Kidney damage with mild decrease in GFR 60-89 3 Moderate decrease in GFR 30-59 4 Severe decrease in GFR 15-29 5 Kidney failure <15 (or dialysis) 4 Medical Technologist Hematology: [id number] 5 Medical Technologist Hematology: [id number] 6 Medical Technologist Hematology: [id number] CARA ROSA 7 Medical Technologist Hematology: [id number] VANDANA CARPENTERTLIN Procedures Date CPT Code Description Status 11/06/2017 60179 FX Calcaneus W/Wo Fixation Open TX Completed 10/27/2017 52957 Rad Exam; Foot Limited Completed 10/13/2017 90677 Rad Exam; Ankle Comp Completed 09/18/2017 14847 Short Leg Cast Completed 05/20/2017 23462 Trigger Finger Release Incision / Tendon Sheath Completed Incision 05/20/2017 82550 Trigger Finger Release Incision / Tendon Sheath Completed Incision 05/20/2017 46349 Trigger Finger Release Incision / Tendon Sheath Completed Incision 05/20/2017 80266 Trigger Finger Release Incision / Tendon Sheath Completed Incision 03/24/2015 63881 Trigger Finger Release Incision / Tendon Sheath Completed Incision 03/24/2015 73375 Trigger Finger Release Incision / Tendon Sheath Completed Incision 04/28/2012 45546 Trigger Finger Release Incision / Tendon Sheath Completed Incision Encounters Type Date Location Provider CPT E/M Dx Office Visit 10/27/2017 [place] [address] S90.31xA 2:45p Of [facility] Office Visit 10/13/2017 [place] [address] S82.61xD 1:15p Of [facility] Office Visit 09/18/2017 [place] [address] S82.61xA 3:15p Of [facility] Office Visit 04/23/2017 [facility] Pam Carrillo 71262 M65.342 11:00a Of [facility] M65.322 Office Visit 07/06/2015 1:00p [facility] Tracie Mendenhall, 25171 G25.81 Services Of Sarah Barnes E10.42 R42 Office Visit 02/22/2015 1:40p [facility] Pam Carrillo 76585 M65.341 [facility] 04[facility]/2012 8:00a [facility] Pam Lorena, 72398 727.03 Of [facility] Barnes Plan of Care Future Appointment(s):11/25/2017 3:00 pm - Eyad Seals MD at [facility]/17/2017 3:00 pm - Eyad Seals MD [facility]
[2017-11-12] MEDS ORDERED: Ondansetron INJ* 2 MG/ML VIAL IV PRN (17:23)
[2017-11-12] MEDS ORDERED: Acetaminophen TAB* 325 MG PO PRN (17:23)
[2017-11-12] MEDS ORDERED: Vancomycin(*) 1,250 MG in NS 0.9% 250 ML* 250 ML IVPB ONE (18:00)
[2017-11-12] MEDS ORDERED: Vancomycin - DIALYSIS DOSING* NOTE FOLLOW UP SCH (18:00)
[2017-11-12] MEDS ORDERED: Vancomycin Random Level* NOTE FOLLOW UP PRN (18:03)
[2017-11-12 18:19] LABS: ABS Basophils 0.1 10^3/ul (0-0.2); ABS Eosinophils 0.3 10^3/ul (0-0.6); ABS Lymphocytes 1.4 10^3/ul (1.0-4.8); ABS Monocytes 0.5 10^3/ul (0-0.8); ABS Neutrophils 5.4 10^3/ul (1.5-7.7); ABS Nucleated RBC 0 10^3/ul; Eosinophil % 3.4 % (0-6); Hematocrit 33 % (35-47); Lymphocyte % 18.1 % (25-47); Mean Corpuscular HGB Conc 33 g/dl (31-36); Mean Corpuscular Hemoglobin 29 pg (27-31); Mean Corpuscular Volume 89 fL (80-97); Mean Platelet Volume 7.3 um3 (7.4-10.4); Nucleated Red Blood Cells % 0.1; Platelet Count 238 10^3/ul (150-450); Red Blood Count 3.75 10^6/ul (4.00-5.40); Red Cell Distribution Width 16 % (10.5-15); White Blood Count 7.6 10^3/ul (3.5-10.8)
[2017-11-12] MEDS: Gabapentin CAP(*) 400 MG PO SCH (18:20)
[2017-11-12] MEDS: Atorvastatin* 20 MG TAB PO SCH (18:20)
[2017-11-12 18:40] LABS: EGFR Non-African American 11.8 (>60)
[2017-11-12 20:11] LABS: INR 0.98 (0.77-1.02)
[2017-11-12] MEDS: Heparin VIAL(*) 5000 UNITS/ML VIAL (FIVE THOUSAND) SUBCUT SCH (21:45)
--- NOTE | 2017-11-12 23:41 | HP ---
CC: Shama Husain NP; Dr. Chavez; Dr. Mcclelland; Dr. Seals; Dr. Solomon.* HISTORY AND PHYSICAL: DATE OF ADMISSION: 11/12/17 PRIMARY CARE PROVIDER: Shama Husain NP and Dr. Chavez. CONSULTING STRATEGIC CONSULTANT: Dr. Mcclelland. CONSULTING ORTHOPEDIST: Dr. Seals. CONSULTING ID SPECIALIST: Dr. Solomon. ATTENDING PHYSICIAN WHILE IN THE HOSPITAL: Dr. Mitchell Ambrosio * (report dictated by Malena Mercado NP). CHIEF COMPLAINT: Calcaneal fracture. HISTORY OF PRESENT ILLNESS: Ms. Pimentel is a 52-year-old female patient that presented to our hospital initially last week on the 11/07/17. She was found to have a significant calcaneal fracture after she was having a routine followup with her orthopedist in [place]. She had recently fractured her fibula and ankle on the right right and she was having followup with her orthopedist. She fractured them in the summer. On routine x-rays that were done which showed a calcaneal fracture and she was having some pain in the heel over the last couple of day prior to that admission, but unfortunately there was a new fracture which was pretty significant. There was worry that the fragment of the fracture may actually puncture the skin because of how close it was on x-ray. She was taken in the OR. She underwent calcaneal screws with Dr. Seals. Today, she was being in the office for a followup. He did an x-ray of that extremity on the right side and it was noted that the hardware appeared to be failing and there was some erythema on the right lower extremity. He asked the hospitalists service to evaluate and to admit and she was sent in for direct admission. The patient denies any fevers or chills, that she has not had any shortness of breath, no nausea or vomiting. She denies having any pain, but she does have significant neuropathy. She denies any changes in medication with the exception that she was discharged home on oxycodone for p.r.n. pain control. She denies having any chest pain or any shortness of breath. She states she had dialysis today and she has not noticed any drainage or discharge coming from that wound. She presented to our hospital and it was noted when she got here, she had a temperature of 101. There was concern for the hardware failure and possible infection. We are asked to evaluate for admission. She does have significant history of type 1 diabetes, neuropathy, end-stage renal disease, hypothyroidism, hyperlipidemia, hypertension. She has had a right fibula fracture, right ankle fracture recently, CAD and a history of retinopathy. REVIEW OF SYSTEMS: There is a documented fever here, but she had none at home. She denies having any significant weight change. There is no double vision. She denies having any ear discharge. There was no rhinorrhea. There is no sore throat. No thyroid enlargement. She denied having any chest pain, no orthopnea, no nocturnal dyspnea. There is no abdominal pain, no nausea, no vomiting, no dysuria, no frequency, no seizure, no loss of consciousness. No pruritus and no skin ulcerations. Review of 14 systems completed, all others were negative. PAST MEDICAL HISTORY: Significant for, 1. Type 1 diabetes. She is on an insulin pump. 2. Neuropathy. 3. End-stage renal disease. 4. Hypothyroidism. 5. Hyperlipidemia. 6. Hypertension. 7. Right fibula fracture. 8. Right ankle fracture. 9. CAD. 10. Retinopathy. PAST SURGICAL HISTORY: 1. She has had a calcaneal screw recently on the 11/07/[address] Seals. 2. She had cardiac catheterization with stents x2. 3. AV fistula. FAMILY HISTORY: Her mother is a diabetic. Father when the patient was young in an accident. SOCIAL HISTORY: She does not smoke. She does not drink. Surrogate decision maker is her . ALLERGIES TO MEDICATIONS: No known drug allergies. HOME MEDICATIONS: According to the patient again include, again these have not changed. 1. She stated she stopped taking her oxycodone because she have not been in much pain. 2. She is on Neurontin 1200 mg at bedtime. 3. Plavix 75 mg daily. 4. Sensipar 60 mg p.o. Friday, Friday, and Friday. 5. Vitamin D 50,000 units p.o. weekly. 6. Insulin pump NovoLog as prescribed. 9. Synthroid 100 mcg p.o. daily. 10. PhosLo 2001 mg p.o. t.i.d. with meals. 11. Aspirin 325 mg p.o. daily. 12. Tylenol 650 mg every 6 hours as needed. 13. Norvasc 5 mg p.o. Friday, Friday, and Friday. 14. Gabrielle-Kenrick 1 tablet p.o. daily. 15. Demadex 50 mg p.o. Friday, Friday, and Friday. 16. Crestor 10 mg p.o. daily. PHYSICAL EXAMINATION GENERAL: At this time, Ms. Pimentel is a 52-year-old female patient. She is chronically ill appearing. She is sitting in the hospital bed. She does not appear to be in any acute distress. VITAL SIGNS: Blood pressure 140/65 with a pulse of 86, respirations were 18, O2 sat 94% on room air and a temperature was 100.1. HEENT: Head: Atraumatic, normocephalic. Eyes: EOMs are intact. Sclerae anicteric and not pale. NECK: Supple. Throat: Oral mucosa appears to be moist. No pharyngeal erythema. LUNGS: Clear to auscultation bilaterally. There was no wheezes, rales or rhonchi. HEART: Sounds S1 and S2. She had a regular rate and rhythm. No murmurs, rubs or gallops. ABDOMEN: Soft, flat, nontender. Bowel sounds are present. EXTREMITIES: Pulses were 2+ throughout. She had a good cap refill. She had decreased sensation to the plantar aspect to her feet. The right lower extremity was covered with an Gunnar dressing and cast. Once again, distal CSM checks are intact. NEUROLOGIC: She is awake, alert and oriented x3. She had no gross focal deficits. Her skin is grossly intact. She does have an incision to her right foot but is covered with an Gunnar splint at this point, it was not taken down. LABORATORY DATA: Labs are pending from today, but I have labs from a week ago , WBC of 7.7, RBC of 3.76, hemoglobin 11.2, hematocrit 33, platelet count of 183. INR 0.93. Her sodium is 135, potassium is 5.2, chloride 97, bicarb 26, BUN 72, creatinine 8.33, glucose of 104. Her CRP on the 11/06/17 was 9.8. Old medical records reviewed. Again, outpatient x-ray was obtained today. I have the report that shows status post internal fixation of the calcaneal fracture, persistent distal right fibular fracture, peripheral arterial disease. Old medical records reviewed. ASSESSMENT AND PLAN: Ms. Pimentel is a 52-year-old female patient with complex medical history coming into our hospital today after being directly referred her from Dr. Seals's office for concern of possible cellulitis and possible failure of her hardware from her recent open reduction, internal fixation of her right calcaneus. We were asked to evaluate for admission. She will be admitted under inpatient status for: 1. Status post right calcaneal fracture with repair that was done on the . I will defer management to Dr. Seals and his team. There is concern for possible hardware failure and possible overlying infection. I am going to go ahead and send off a CBC, ESR, CRP, blood cultures. I have sent word to Dr. Solomon to help us with antibiotic selection, but for now put on vancomycin. She does not appear to be in septic shock based on vitals, but I am awaiting further laboratory data and analysis. We will continue to follow her and we will put her on vanco. 2. Diabetes. We will go ahead and continue her insulin pump. 3. Neuropathy. Continue meds as prescribed, starting gabapentin. 4. End-stage renal disease. I did touch base with Dr. Mcclelland. A CMP is pending. We will go ahead and try to continue her routine dialysis on Fridays. 5. Hypothyroidism. Continue her Synthroid. 6. Hyperlipidemia. Continue her meds as prescribed. 7. Hypertension. Continue meds as prescribed. It appears to be stable now. 8. Recent history of right fibula fracture and right ankle fracture. Again, Dr. Seals is following. 9. History of coronary artery disease. She is on a statin, aspirin and Plavix therapy. We will continue this. She is on Norvasc. She is not on bet a- mitali, but again, I will defer this to her primary and primary aoc operations intelligence chief if they would like to start it. 10. Retinopathy. Continue current medical regimen, supportive care. Follow up with PCP. 11. DVT prophylaxis. She will be placed on heparin subcu. She is high risk. 12. Fluids, electrolytes, and nutrition. She can have a consistent carb diet and she is n.p.o. after midnight. 13. Code status. She is a full code. TIME SPENT: On admission 50 minutes, greater than half of the time spent face- to- face with the patient, obtaining my history and physical, the other half of the time was spent going over the plan of care with the patient and implementing the plan of care. I did discus the plan of care with my attending Dr. Ambrosio. He is in agreement. MALENA MERCADO, MADDIE [id number]/CPS #: [id number] NICHOLAS
[2017-11-13] MEDS ORDERED: Dextrose 50% Syringe 50 ML* 25 GM/50 ML SYRINGE IV PUSH PRN ×2 (05:08→15:22)
[2017-11-13 05:19] LABS: ABS Basophils 0.1 10^3/ul (0-0.2); ABS Eosinophils 0.4 10^3/ul (0-0.6); ABS Lymphocytes 1.2 10^3/ul (1.0-4.8); ABS Monocytes 0.6 10^3/ul (0-0.8); ABS Neutrophils 4.4 10^3/ul (1.5-7.7); ABS Nucleated RBC 0 10^3/ul; Eosinophil % 5.4 % (0-6); Hematocrit 30 % (35-47); Hemoglobin 10.2 g/dl (12.0-16.0); Lymphocyte % 17.6 % (25-47); Mean Corpuscular HGB Conc 34 g/dl (31-36); Mean Corpuscular Hemoglobin 30 pg (27-31); Mean Corpuscular Volume 89 fL (80-97); Mean Platelet Volume 7.7 um3 (7.4-10.4); Nucleated Red Blood Cells % 0; Platelet Count 192 10^3/ul (150-450); Red Cell Distribution Width 16 % (10.5-15); White Blood Count 6.7 10^3/ul (3.5-10.8)
[2017-11-13] MEDS: Levothyroxine TAB* 100 MCG TAB PO SCH (05:31)
[2017-11-13 05:36] LABS: EGFR Non-African American 9.4 (>60)
[2017-11-13] MEDS: Heparin VIAL(*) 5000 UNITS/ML VIAL (FIVE THOUSAND) SUBCUT SCH ×3 (05:43→21:51)
[2017-11-13] MEDS: Calcium Acetate CAP* 667 MG PO SCH ×3 (08:24→20:00)
[2017-11-13] MEDS: Aspirin EC TAB* 325 MG PO SCH (08:24)
[2017-11-13] MEDS: Clopidogrel TAB* 75 MG PO SCH (08:25)
--- NOTE | 2017-11-13 13:21 | PN ---
Subjective Date of Service: 11/13/17 Interval History: Ms. Pimentel reports feeling well this morning. She had symptomatic hypoglycemia with a glucose of 59mg/dL which was resolved with dextrose. She is using her insulin pump and decreased her basal dosing as she has been NPO overnight. She otherwise offers no complaints. Pain is minimal. RLE with cast in place. Family History: Unchanged from Admission Social History: Unchanged from Admission Past Medical History: Unchanged from Admission Objective Active Medications: Acetaminophen (Tylenol Tab*) 650 mg PO Q4H PRN Amlodipine Besylate (Norvasc Tab*) 5 mg PO [facility] [facility] Aspirin (Ecotrin Ec Tab*) 325 mg PO QAM [facility] Atorvastatin Calcium (Lipitor*) 20 mg PO QPM [facility]; Protocol Calcium Acetate (Phoslo Cap*) 2,001 mg PO TID WITH MEALS [facility] Cinacalcet (Sensipar Tab*) 60 mg PO [place] [facility] Clopidogrel Bisulfate (Plavix Tab*) 75 mg PO QAM [facility] Dextrose (D50w Syringe 50 Ml*) 25 gm IV PUSH .FOR FS < 60 - SS PRN Gabapentin (Neurontin Cap(*)) 1,200 mg PO QPM [facility] Heparin Sodium (Porcine) (Heparin Vial(*)) 5,000 units SUBCUT Q8HR [facility] Levothyroxine Sodium (Synthroid Tab*) 100 mcg PO 0600 [facility] Ondansetron HCl (Zofran Inj*) 4 mg IV Q6H PRN Oxycodone/Acetaminophen (Percocet 5/325 Tab*) 1 tab PO Q4H PRN Pharmacy Consult (Vancomycin - Dialysis Dosing*) 1 note FOLLOW UP .VANC PER PHARMACY [facility] Pharmacy Consult (Vancomycin Random Level*) 1 note FOLLOW UP . PRN Torsemide (Demadex*) 50 mg PO [place] [facility] Vital Signs - 8 hr 11/13/17 11/13/17 11/13/17 07:12 07:26 11:12 Temperature 97.7 F 97.9 F Pulse Rate 75 79 Respiratory 18 16 16 Rate Blood Pressure 128/60 129/65 (mmHg) O2 Sat by Pulse 95 93 Oximetry Oxygen Devices in Use Now: None Appearance: Middle-aged female sitting in bed in no acute distress. Eyes: No Scleral Icterus, PERRLA Ears/Nose/Mouth/Throat: NL Teeth, Lips, Gums, Mucous Membranes Moist Neck: NL Appearance and Movements; NL JVP, Trachea Midline Respiratory: Symmetrical Chest Expansion and Respiratory Effort, Clear to Auscultation Cardiovascular: NL Sounds; No Murmurs; No JVD, RRR, No Edema Abdominal: NL Sounds; No Tenderness; No Distention, No Hepatosplenomegaly Extremities: No Edema Skin: No Rash or Ulcers Neurological: Alert and Oriented x 3, NL Sensation Lines/Tubes/Other Access: Clean, Dry and Intact Peripheral IV Result Diagrams: 11/13/17 04:55 11/13/17 04:55 Assess/Plan/Problems-Billing Assessment: Ms. Pimentel is a 52yo female with PMH of DM1, ESRD on dialysis, CAD, HTN, HLD, and recent right calcaneal fracture, s/p ORIF with 2 screws on 11/06/17, who was sent to [facility] from Dr. Modi's office with concern for failing hardware and erythema of the RLE. - Patient Problems (1) Closed fracture of right calcaneus Current Visit: Yes Status: Acute Priority: High Code(s): S92.001A - UNSP FRACTURE OF RIGHT CALCANEUS, INIT FOR CLOS FX SNOMED Code(s): 55869127 Comment: - S/p ORIF 11/06/17, now with hardware failure - Management per ortho - Appreciate ID consult for questionable overlying infection - Continue vanco (2) Diabetes mellitus type 1 Current Visit: Yes Status: Acute Priority: High Code(s): E10.9 - TYPE 1 DIABETES MELLITUS WITHOUT COMPLICATIONS SNOMED Code(s): 38325326 Comment: - Check A1C - Continue insulin pump (3) ESRD (end stage renal disease) Current Visit: Yes Status: Chronic Priority: Medium Code(s): N18.6 - END STAGE RENAL DISEASE SNOMED Code(s): 03549371 Comment: - Hemodialysis MWF per Krystin (4) HTN (hypertension) Current Visit: Yes Status: Chronic Priority: Medium Code(s): I10 - ESSENTIAL (PRIMARY) HYPERTENSION SNOMED Code(s): 24931641 Comment: - Continue amlodipine, torsemide (5) CAD (coronary artery disease) Current Visit: Yes Status: Chronic Priority: Medium Code(s): I25.10 - ATHSCL HEART DISEASE OF [place] CORONARY ARTERY W/O ANG PCTRS SNOMED Code(s): 48134539 Comment: - Continue asa, plavix (6) Hypercholesterolemia Current Visit: Yes Status: Chronic Priority: Medium Code(s): E78.0 - PURE HYPERCHOLESTEROLEMIA * DO NOT USE * SNOMED Code(s): 31418500 Comment: - Continue atorvastatin (7) Diabetic retinopathy Current Visit: Yes Status: Chronic Priority: Medium Code(s): E11.319 - TYPE 2 DIABETES W UNSP DIABETIC RTNOP W/O MACULAR EDEMA SNOMED Code(s): 2633618 Comment: - Supportive care (8) Hypothyroidism Current Visit: Yes Status: Chronic Priority: Medium Code(s): E03.9 - HYPOTHYROIDISM, UNSPECIFIED SNOMED Code(s): 36949038 Comment: - Continue levothyroxine (9) Full code status Current Visit: Yes Status: Acute Priority: High Code(s): Z78.9 - OTHER SPECIFIED HEALTH STATUS SNOMED Code(s): 795890728 (10) DVT prophylaxis Current Visit: Yes Status: Acute Priority: High Code(s): AMP1310 - SNOMED Code(s): 012583866 Comment: - Heparin SQ Status and Disposition: Inpatient. Anticipate discharge home when medically stable.
[2017-11-13] MEDS ORDERED: fentaNYL* 50 MCG/ML 2 ML VIAL (100 MCG VIAL) IV PRN (15:21)
[2017-11-13] MEDS ORDERED: HYDROcodone/ACETAMIN 5-325 MG* 1 TAB PO PRN (15:21)
[2017-11-13] MEDS ORDERED: Dextrose 50% Syringe 50 ML* 25 GM/50 ML SYRINGE ONE (15:21)
[2017-11-13] MEDS ORDERED: DiMENhydriNATE IV* 50 MG/ML VIAL IV PUSH PRN (15:21)
[2017-11-13] MEDS ORDERED: Naloxone* 0.4 MG/ML 1 ML VIAL IV PRN (15:21)
[2017-11-13] MEDS ORDERED: oxyCODONE/Acetamin 5/325 MG* TAB PO PRN (15:21)
[2017-11-13] MEDS ORDERED: Bupivacaine 0.25% SDV* 30 ML ONE (15:33)
[2017-11-13] MEDS ORDERED: Propofol* 10 MG/ML 20 ML BTL IV PUSH ONE (15:34)
[2017-11-13] MEDS ORDERED: Lidocaine 2% PF * 5 ML VIAL ONE (15:34)
[2017-11-13] MEDS ORDERED: Mivacurium Chloride* 20 MG/10 ML VIAL IV ONE (15:34)
[2017-11-13] MEDS ORDERED: fentaNYL* 50 MCG/ML 2 ML VIAL (100 MCG VIAL) ONE (15:34)
[2017-11-13] MEDS ORDERED: EPHEDrine (Pressors)* 50 MG/ML VIAL ONE (16:03)
[2017-11-13] MEDS ORDERED: Ondansetron INJ* 2 MG/ML VIAL ONE (16:35)
--- NOTE | 2017-11-13 17:32 | OP ---
Operative Report - Blank - Operative Report Date of Operation: 11/13/17 Note: PATIENT: Katie Pimentel DATE OF : 1965 DATE OF SURGERY: 11/13/2017 SURGEON: Eyad Seals MD MIS SPECIALIST: MAGDALENA Morrow, whos assistance was necessary for positioning, retraction, help with instrumentation, and closure. ANESTHESIOLOGIST: Dr. Dee PREOPERATIVE DIAGNOSIS: Right calcaneus beak fracture with loss of prior fixation POSTOPERATIVE DIAGNOSIS: Right calcaneus beak fracture with loss of prior fixation OPERATION: 1. Removal of deep hardware 2. Partial excision of right calcaneus 3. Advancement and secondary repair of right Achilles tendon ANESTHESIA: GETA IMPLANTS: none TOURNIQUET TIME: Less than 10 minutes with a well-padded thigh tourniquet at 250mmHg SPECIMENS: none ESTIMATED BLOOD LOSS: 30cc COMPLICATIONS: none STATUS: Stable from the operating room to the recovery room and then back to the hospital floor. INDICATIONS FOR PROCEDURE: Katie sustained a prior calcaneus beak fracture that I fixed acutely last week due to skin threatening. She presented for follow-up yesterday, and x-rays revealed loss of fixation and re-displacement of the calcaneus fracture. She was admitted to the hospital. There was prominence of the bone under her heel skin. We discussed treatment options at length. Both operative and non- operative treatment alternatives were reviewed. Further, the nature and risks of surgery were reviewed in careful detail, in the office as well as the pre- operative holding area. Our discussions regarding the risks of surgery included , but were not limited to, infection, wound problems, nerve injury, neuroma, RSD , persistent symptoms, blood clot, skin breakdown, need for further surgery, Achilles weakness, loss of motion, failure of the surgery, and even the remote chance of catastrophic complication, including loss of limb. DESCRIPTION OF PROCEDURE: The patient was seen in the preoperative holding unit and informed written consent was obtained. The appropriate extremity was marked. The patient was then brought to the operating room and carefully positioned on the operating room table. Anesthesia was induced. All bony prominences were padded with great care. A well-padded thigh tourniquet was placed. A chlorhexidine based pre- scrub was performed followed by a chloraprep prep and drape in standard sterile fashion. A surgical safety pause was then conducted in which we confirmed the appropriate patient, extremity, planned procedure, availability of equipment, indication and administration of prophylactic antibiotics, and DVT prophylaxis in the form of a compression boot on the non-surgical extremity. I began with Esmarch exsanguination of the limb and inflated the tourniquet. I utilized the prior longitudinal incision just lateral to the Achilles tendon at the level of the superior calcaneus and extended it distally. We had a venous tourniquet, so the tourniquet was deflated. I exposed the screw heads and used a screwdriver to remove both of the screws and a washer. I then used sharp dissection to define the fracture fragment. The fracture fragment was then excised. The bone was of very poor quality. I then defined the distal extent of the Achilles tendon. I placed a Krakw stitch into the Achilles tendon with #5 Ethibond. I then used the needle on the Ethibond to go through the remaining calcaneus, essentially producing transosseous bone tunnels. I then placed the foot into a plantarflexed position to bring the Achilles down to the bone bed. The Ethibond was then tied on the other end of the bone tunnels. The wound was then copiously irrigated and meticulously closed in layers utilizing 0 PDS and 2-0 Prolene. I then placed a prevena incisional vac. A splint was then placed with the ankle in the resting plantarflexed position. The patient was then awakened from anesthesia and transferred to the recovery room in stable condition. There were no complications. All needle and sponge counts were correct at the end of the case. ATTESTATION: I attest I was present and scrubbed and performed the critical portions of the procedure myself. POSTOPERATIVE PLAN: The plan is for [id number] in the splint. Follow-up in 1 week for a wound check.
[2017-11-13] MEDS: Cinacalcet TAB* 30 MG PO SCH (19:59)
[2017-11-13] MEDS: Atorvastatin* 20 MG TAB PO SCH (20:00)
[2017-11-13] MEDS: Gabapentin CAP(*) 400 MG PO SCH (20:00)
[2017-11-13] MEDS: amLODIPine TAB* 5 MG PO SCH (20:00)
[2017-11-13] MEDS: Torsemide TAB* 100 MG PO SCH (20:01)
--- NOTE | 2017-11-13 21:14 | CONS ---
CONSULTATION REPORT: DATE OF CONSULT: 11/13/17 REQUESTING PHYSICIAN: Fernie Mercado NP CONSULTING SERVICE: Infectious disease. REASON FOR CONSULT: Right foot cellulitis. IMPRESSION: 1. Right calcaneus fracture, status post open reduction internal fixation complicated by cellulitis and plans for hardware removal. 2. End-stage renal disease, on hemodialysis. 3. Type 1 diabetes. RECOMMENDATIONS: Agree with vancomycin, which could be dosed post dialysis while awaiting intraoperative findings. HISTORY OF PRESENT ILLNESS: A 52-year-old woman with end-stage renal disease admitted with right heel infection. She had had a calcaneus fracture, which is treated with internal fixation and was seen yesterday by Dr. Seals, an x-ray showed some failure of the hardware and there is some redness in the incision. So she was admitted to the hospital with plan for hardware removal, incision debridement today. She had no fevers, chills or sweats. She otherwise feels well. PAST MEDICAL HISTORY: 1. End-stage renal disease, on hemodialysis Friday, Friday and Friday. 2. Type 1 diabetes with nephropathy. 3. Hypothyroidism. 4. Dyslipidemia. 5. Hypertension. 6. Coronary artery disease and PCI. 7. AV fistula. 8. Right fibula fracture. ALLERGIES: No known drug allergies. MEDICATIONS: 1. Tylenol. 2. Amlodipine. 3. Aspirin. 4. Lipitor. 5. Cinacalcet 6. Plavix. 7. Heparin subcutaneous injection. 8. Gabapentin. 9. Levothyroxine. 10. Vancomycin. SOCIAL HISTORY: She lives outside of [place]. She has no travel or sick contacts. FAMILY HISTORY: No recurrent infections. REVIEW OF SYSTEMS: All negative for 14-point review of systems except as noted above in the history of present illness. PHYSICAL EXAM: Vital Signs: Temperature is 36.5, heart rate 70, respiratory rate 16, blood pressure 128/60, oxygen saturation 95% on room air. General: She is awake, not in distress. Neurologic: She is oriented x3, follows all commands. Sensation is decreased to light touch in both feet. HEENT: There is no conjunctival hemorrhage. Oropharynx without lesions. Heart: Regular rate and rhythm without murmurs, rubs, or gallops. Lungs are clear to auscultation bilaterally. Abdomen: Soft, nontender and nondistended. There are bowel sounds present. Skin: There is no rash or splinter hemorrhage. Musculoskeletal: Her right heel incision is intact, slight erythema, there is no drainage. DIAGNOSTIC STUDIES/LAB DATA: White blood cell count 6, hemoglobin 10, platelets 192, creatinine 4.8, potassium 3.7. Please see impression and recommendations outlined above. Thank you for asking me to see Ms. Pimentel in consultation. [id number]/[facility] #: [id number] MTDD
[2017-11-13] MEDS: oxyCODONE/Acetamin 5/325 MG* TAB PO PRN (23:36)
[2017-11-14 05:48] LABS: ABS Basophils 0.1 10^3/ul (0-0.2); ABS Eosinophils 0.2 10^3/ul (0-0.6); ABS Lymphocytes 0.9 10^3/ul (1.0-4.8); ABS Monocytes 0.8 10^3/ul (0-0.8); ABS Neutrophils 7.6 10^3/ul (1.5-7.7); ABS Nucleated RBC 0 10^3/ul; Eosinophil % 2.1 % (0-6); Hematocrit 30 % (35-47); Hemoglobin 9.9 g/dl (12.0-16.0); Lymphocyte % 9.5 % (25-47); Mean Corpuscular HGB Conc 33 g/dl (31-36); Mean Corpuscular Hemoglobin 30 pg (27-31); Mean Corpuscular Volume 89 fL (80-97); Mean Platelet Volume 7.9 um3 (7.4-10.4); Nucleated Red Blood Cells % 0; Platelet Count 221 10^3/ul (150-450); Red Blood Count 3.31 10^6/ul (4.00-5.40); Red Cell Distribution Width 16 % (10.5-15); White Blood Count 9.6 10^3/ul (3.5-10.8)
[2017-11-14] MEDS: Levothyroxine TAB* 100 MCG TAB PO SCH (05:58)
[2017-11-14] MEDS: Heparin VIAL(*) 5000 UNITS/ML VIAL (FIVE THOUSAND) SUBCUT SCH ×3 (06:02→21:12)
[2017-11-14 06:11] LABS: EGFR Non-African American 6.7 (>60)
--- NOTE | 2017-11-14 08:28 | PN ---
Subjective Date of Service: 11/14/17 Interval History: Patient seen and examined at bedside. Denies fever, chills, shortness of breath , chest discomfort, N/V/D. Pt states that her pain is tolerable and minimal. Discussed with Pt about using her own insulin pump, and she is comfortable continuing to use it while here. Family History: Unchanged from Admission Social History: Unchanged from Admission Past Medical History: Unchanged from Admission Objective Active Medications: Acetaminophen (Tylenol Tab*) 650 mg PO Q4H PRN Reason: FEVER/PAIN Amlodipine Besylate (Norvasc Tab*) 5 mg PO SUTUTHSA [facility] Aspirin (Ecotrin Ec Tab*) 325 mg PO QAM [facility] Atorvastatin Calcium (Lipitor*) 20 mg PO QPM [facility]; Protocol Calcium Acetate (Phoslo Cap*) 2,001 mg PO TID WITH MEALS [facility] Cinacalcet (Sensipar Tab*) 60 mg PO SUTUTHSA [facility] Clopidogrel Bisulfate (Plavix Tab*) 75 mg PO QAM [facility] Dextrose (D50w Syringe 50 Ml*) 25 gm IV PUSH .FOR FS < 60 - SS PRN Reason: Fs < 65 Dextrose (D50w Syringe 50 Ml*) 12.5 gm IV PUSH ONCE PRN Reason: Fs < 70 Gabapentin (Neurontin Cap(*)) 1,200 mg PO QPM [facility] Heparin Sodium (Porcine) (Heparin Vial(*)) 5,000 units SUBCUT Q8HR [facility] Levothyroxine Sodium (Synthroid Tab*) 100 mcg PO 0600 [facility] Ondansetron HCl (Zofran Inj*) 4 mg IV Q6H PRN Reason: NAUSEA Oxycodone/Acetaminophen (Percocet 5/325 Tab*) 1 tab PO Q4H PRN Reason: PAIN Pharmacy Consult (Vancomycin - Dialysis Dosing*) 1 note FOLLOW UP .VANC PER PHARMACY [facility] Pharmacy Consult (Vancomycin Random Level*) 1 note FOLLOW UP . PRN Torsemide (Demadex*) 50 mg PO SUTUTHSA [facility] Vital Signs - 8 hr 11/14/17 11/14/17 11/14/17 02:33 03:42 05:34 Temperature 99.9 F Pulse Rate 93 Respiratory 16 16 Rate Blood Pressure 117/54 (mmHg) O2 Sat by Pulse 95 95 Oximetry 11/14/17 11/14/17 07:16 08:00 Temperature 98.7 F Pulse Rate 88 Respiratory 16 18 Rate Blood Pressure 123/62 (mmHg) O2 Sat by Pulse 99 Oximetry Oxygen Devices in Use Now: None Appearance: NAD, sitting up in bed Ears/Nose/Mouth/Throat: Mucous Membranes Moist Respiratory: Symmetrical Chest Expansion and Respiratory Effort, Clear to Auscultation Cardiovascular: NL Sounds; No Murmurs; No JVD, RRR Abdominal: NL Sounds; No Tenderness; No Distention Extremities: No Edema Skin: - - Splint to right LE clean and intact, wound vac inplace Neurological: Alert and Oriented x 3, NL Muscle Strength and Tone Lines/Tubes/Other Access: Clean, Dry and Intact Peripheral IV - site benign Nutrition: Taking PO's Result Diagrams: 11/14/17 05:11 11/14/17 05:11 Microbiology and Other Data: Microbiology 11/12/17 19:40 Aerobic Blood Culture - Preliminary Blood Venous No Growth Day 1 Anaerobic Blood Culture - Preliminary No Growth Day 1 11/12/17 18:08 Aerobic Blood Culture - Preliminary Blood Venous No Growth Day 1 Anaerobic Blood Culture - Preliminary No Growth Day 1 Assess/Plan/Problems-Billing Assessment: Ms. Pimentel is a 52yo female with PMH of DM1, ESRD on dialysis, CAD, HTN, HLD, and recent right calcaneal fracture, s/p ORIF with 2 screws on 11/06/17, who was [place] [facility] [place] Modi[place] with concern for failing hardware and erythema of the RLE. - Patient Problems (1) Closed fracture of right calcaneus Code(s): S92.001A - UNSP FRACTURE OF RIGHT CALCANEUS, INIT FOR CLOS FX SNOMED Code(s): 05301501 Comment: - S/P ORIF 11/06/17, now with hardware failure - S/P hardware removal, partial excision right calcaneous, repair achilles tendon, POD 1 - Management per ortho - Appreciate ID consult - Continue vanco and pain management (2) Diabetes mellitus type 1 Code(s): E10.9 - TYPE 1 DIABETES MELLITUS WITHOUT COMPLICATIONS SNOMED Code(s) : 08589981 Comment: - Glucose 140-320's - HgA1C 8.3 - With diabetic neuropathy - Continue insulin pump and gabapentin (3) ESRD (end stage renal disease) Code(s): N18.6 - END STAGE RENAL DISEASE SNOMED Code(s): 47203577 Comment: - Hemodialysis MWF per [facility] - Continue Phoslo and Sensipar (4) CAD (coronary artery disease) Code(s): I25.10 - ATHSCL HEART DISEASE OF [place] CORONARY ARTERY W/O ANG PCTRS SNOMED Code(s): 53958709 Comment: - Denies chest pain - Continue asa and plavix (5) HTN (hypertension) Code(s): I10 - ESSENTIAL (PRIMARY) HYPERTENSION SNOMED Code(s): 01679102 Comment: - Mostly normotensive, [id number]'s - Continue amlodipine and torsemide (6) Diabetic retinopathy Code(s): E11.319 - TYPE 2 DIABETES W UNSP DIABETIC RTNOP W/O MACULAR EDEMA SNOMED Code(s): 5230847 Comment: - Supportive care (7) Hypercholesterolemia Code(s): E78.0 - PURE HYPERCHOLESTEROLEMIA * DO NOT USE * SNOMED Code(s): 91480624 Comment: - Continue atorvastatin (8) Hypothyroidism Code(s): E03.9 - HYPOTHYROIDISM, UNSPECIFIED SNOMED Code(s): 56335082 Comment: - Continue levothyroxine (9) Thyroid nodule Code(s): E04.1 - NONTOXIC SINGLE THYROID NODULE SNOMED Code(s): 967761004 Comment: - Continue to follow with PCP (10) DVT prophylaxis Code(s): VHJ4521 - SNOMED Code(s): 416288746 Comment: - Heparin SQ (11) Full code status Code(s): Z78.9 - OTHER SPECIFIED HEALTH STATUS SNOMED Code(s): 802960469 Status and Disposition: Inpatient. Anticipate discharge home when medically stable.
[2017-11-14] MEDS: Calcium Acetate CAP* 667 MG PO SCH ×3 (08:40→16:29)
[2017-11-14] MEDS: Aspirin EC TAB* 325 MG PO SCH (08:40)
[2017-11-14] MEDS: Clopidogrel TAB* 75 MG PO SCH (08:40)
[2017-11-14] MEDS ORDERED: Polyethylene Glycol 3350* 17 GM PACKET PO PRN (08:44)
[2017-11-14] MEDS ORDERED: Magnesium Hydroxide LIQ* 30 ML UDC PO PRN (08:44)
[2017-11-14] MEDS ORDERED: Senna TAB PO PRN (08:44)
[2017-11-14] MEDS ORDERED: Docusate CAP* 100 MG PO PRN (08:44)
--- NOTE | 2017-11-14 08:44 | PN ---
Progress Note - Progress Note Date of Service: 11/14/17 SOAP: Subjective: POD #1 right ankle hardware removal, calcaneal fracture fragment excision and achilles repair. Pt states that she is doing well, no pain. Denies CP/SOB, n/v, f/c. Objective: Vital Signs: Temp Pulse Resp BP Pulse Ox 98.7 F 88 18 123/62 99 11/14/17 07:16 11/14/17 07:16 11/14/17 08:00 11/14/17 07:16 11/14/17 07:16 Gen: A&Ox3, NAD at rest sitting in bed RLE: Splint C/D/I, VAC with minimal output. +f/e at MTPs. Sensation decreased due to neuropathy. Good cap refill. Assessment: POD #1 right ankle hardware removal, calcaneal fracture fragment excision and achilles repair Plan: NWB RLE, PT/OT consult Dialysis to be arranged through medicine Cont IV antibiotics given surrounding cellulitis at time of surgery
[2017-11-14] MEDS ORDERED: Insulin LISPRO* FOR INSULIN PUMP SUBCUT SCH (11:00)
[2017-11-14] MEDS: Atorvastatin* 20 MG TAB PO SCH (16:28)
[2017-11-14] MEDS: Gabapentin CAP(*) 400 MG PO SCH (16:29)
[2017-11-14] MEDS: oxyCODONE/Acetamin 5/325 MG* TAB PO PRN (16:37)
[2017-11-14] MEDS ORDERED: Vancomycin(*) 750 MG in NS 0.9% 250 ML* 250 ML IVPB ONE (17:00)
[2017-11-15 05:39] LABS: ABS Basophils 0.1 10^3/ul (0-0.2); ABS Eosinophils 0.3 10^3/ul (0-0.6); ABS Lymphocytes 1.3 10^3/ul (1.0-4.8); ABS Monocytes 0.7 10^3/ul (0-0.8); ABS Neutrophils 5.1 10^3/ul (1.5-7.7); ABS Nucleated RBC 0 10^3/ul; Eosinophil % 3.8 % (0-6); Hematocrit 28 % (35-47); Hemoglobin 9.2 g/dl (12.0-16.0); Lymphocyte % 17.2 % (25-47); Mean Corpuscular HGB Conc 33 g/dl (31-36); Mean Corpuscular Hemoglobin 29 pg (27-31); Mean Corpuscular Volume 89 fL (80-97); Mean Platelet Volume 7.8 um3 (7.4-10.4); Nucleated Red Blood Cells % 0.1; Platelet Count 189 10^3/ul (150-450); Red Blood Count 3.13 10^6/ul (4.00-5.40); Red Cell Distribution Width 16 % (10.5-15); White Blood Count 7.4 10^3/ul (3.5-10.8)
[2017-11-15] MEDS: Levothyroxine TAB* 100 MCG TAB PO SCH (06:00)
[2017-11-15] MEDS: Heparin VIAL(*) 5000 UNITS/ML VIAL (FIVE THOUSAND) SUBCUT SCH ×3 (06:01→22:04)
[2017-11-15] MEDS: oxyCODONE/Acetamin 5/325 MG* TAB PO PRN (06:06)
[2017-11-15] MEDS: Aspirin EC TAB* 325 MG PO SCH (08:17)
[2017-11-15] MEDS: Clopidogrel TAB* 75 MG PO SCH (08:17)
[2017-11-15] MEDS: Calcium Acetate CAP* 667 MG PO SCH ×3 (08:17→17:21)
--- NOTE | 2017-11-15 08:51 | PN ---
Progress Note - Progress Note Date of Service: 11/15/17 SOAP: Subjective: POD #2 right ankle hardware removal, calcaneal fracture fragment excision and achilles repair. Pt states that she is doing well, no pain. Denies CP/SOB, n/v, f/c. Objective: Vital Signs: Temp Pulse Resp BP Pulse Ox 98.5 F 79 16 122/59 94 11/15/17 08:11 11/15/17 08:11 11/15/17 08:20 11/15/17 08:11 11/15/17 08:11 Gen: A&Ox3, NAD at rest sitting in bed RLE: Splint C/D/I, VAC with minimal output. +f/e at MTPs. Sensation decreased due to neuropathy. Good cap refill. Assessment: POD #2 right ankle hardware removal, calcaneal fracture fragment excision and achilles repair Plan: NWB RLE, PT/OT consult Cont IV antibiotics given surrounding cellulitis at time of surgery Wound check tomorrow, if ok at that time will consider d/c home
--- NOTE | 2017-11-15 11:40 | PN ---
Progress Note - Progress Note Date of Service: 11/15/17 Note: I saw Benita this morning. She reports doing well. Has been up using the knee scooter. No ankle pain. No calf pain, CP, SOB. Splint C/D/I. vac with good suction. Plan to take down splint and vac tomorrow for wound assessment. Continue abx. Eyad Seals MD
[2017-11-15] MEDS: Torsemide TAB* 100 MG PO SCH (17:21)
[2017-11-15] MEDS: Cinacalcet TAB* 30 MG PO SCH (17:22)
[2017-11-15] MEDS: amLODIPine TAB* 5 MG PO SCH (18:15)
[2017-11-15] MEDS: Atorvastatin* 20 MG TAB PO SCH (18:15)
[2017-11-15] MEDS: Gabapentin CAP(*) 400 MG PO SCH (18:15)
--- NOTE | 2017-11-15 18:23 | PN ---
Subjective Date of Service: 11/15/17 Interval History: Doing well, ambulating with rolling scooter. Some discomfort when heel is directly on bed; resolved when on pillow. Afebrile. Dressing kept in tact today. Family History: Unchanged from Admission Social History: Unchanged from Admission Past Medical History: Unchanged from Admission Objective Active Medications: Acetaminophen (Tylenol Tab*) 650 mg PO Q4H PRN PRN Reason: FEVER/PAIN Amlodipine Besylate (Norvasc Tab*) 5 mg PO [facility] Last Admin: 11/13/17 20:00 Dose: 5 mg Aspirin ([facility]cotrin Ec Tab*) [facility] Last Admin: 11/15/17 08:17 Dose: 325 mg Atorvastatin Calcium (Lipitor*) 20 mg PO QPM [facility]; Protocol Last Admin: 11/14/17 16:28 Dose: 20 mg Calcium Acetate (Phoslo Cap*) 2,001 mg PO TID WITH MEALS [facility] Last Admin: 11/15/17 17:21 Dose: 2,001 mg Cinacalcet (Sensipar Tab*) [facility] Last Admin: 11/15/17 17:22 Dose: 60 mg Clopidogrel Bisulfate (Plavix Tab*) 75 mg PO [facility] Last Admin: 11/15/17 08:17 Dose: 75 mg Dextrose (D50w Syringe 50 Ml*) 25 gm IV PUSH .FOR FS < 60 - SS PRN PRN Reason: Fs < 65 Last Admin: 11/13/17 05:24 Dose: 25 gm Dextrose (D50w Syringe 50 Ml*) 12.5 gm IV PUSH ONCE PRN PRN Reason: Fs < 70 Docusate Sodium (Colace Cap*) 100 mg PO BID PRN PRN Reason: CONSTIPATION Gabapentin (Neurontin Cap(*)) 1,200 mg PO QPM [facility] Last Admin: 11/14/17 16:29 Dose: 1,200 mg Heparin Sodium (Porcine) (Heparin Vial(*)) 5,000 units SUBCUT Q8HR [facility] Last Admin: 11/15/17 14:54 Dose: 5,000 units Insulin Human Lispro (Humalog*) 0 units SUBCUT .SEE PROTOCOL [facility]; Protocol Levothyroxine Sodium (Synthroid Tab*) 100 mcg PO 0600 [facility] Last Admin: 11/15/17 06:00 Dose: 100 mcg Magnesium Hydroxide (Milk Of Magnesia Liq*) 30 ml PO BID PRN PRN Reason: CONSTIPATION Ondansetron HCl (Zofran Inj*) 4 mg IV Q6H PRN PRN Reason: NAUSEA Oxycodone/Acetaminophen (Percocet 5/325 Tab*) 1 tab PO Q4H PRN PRN Reason: PAIN Last Admin: 11/15/17 06:06 Dose: 1 tab Pharmacy Consult (Vancomycin - Dialysis Dosing*) 1 note FOLLOW UP .VANC PER PHARMACY [facility] Pharmacy Consult (Vancomycin Random Level*) 1 note FOLLOW UP ONCE ONE Stop: 11/17/17 06:01 Polyethylene Glycol/Electrolytes (Miralax*) 17 gm PO DAILY PRN PRN Reason: CONSTIPATION Senna (Senokot Tab*) 1 tab PO BEDTIME PRN PRN Reason: CONSTIPATION Torsemide ([facility]x*) [facility] Last Admin: 11/15/17 17:21 Dose: 50 mg Vital Signs - 8 hr 11/15/17 11/15/17 11:17 15:18 Temperature 98.2 F 98.8 F Pulse Rate 79 83 Respiratory 16 19 Rate Blood Pressure 120/58 130/61 (mmHg) O2 Sat by Pulse 98 92 Oximetry Oxygen Devices in Use Now: None Appearance: alert, well appearing Eyes: No Scleral Icterus Ears/Nose/Mouth/Throat: NL Teeth, Lips, Gums Neck: NL Appearance and Movements; NL JVP Respiratory: Symmetrical Chest Expansion and Respiratory Effort Cardiovascular: NL Sounds; No Murmurs; No JVD, RRR Abdominal: NL Sounds; No Tenderness; No Distention, - - insulin pump Lymphatic: No Cervical Adenopathy Extremities: No Edema, - - right ankle wrapped Neurological: Alert and Oriented x 3 Result Diagrams: 11/15/17 04:58 11/14/17 05:11 Microbiology and Other Data: Microbiology 11/12/17 19:40 Aerobic Blood Culture - Preliminary Blood Venous No Growth Day 1 Anaerobic Blood Culture - Preliminary No Growth Day 1 11/12/17 18:08 Aerobic Blood Culture - Preliminary Blood Venous No Growth Day 1 Anaerobic Blood Culture - Preliminary No Growth Day 1 Assess/Plan/Problems-Billing Assessment: Ms. Pimentel is a 52yo female with PMH of DM1, ESRD on dialysis, CAD, HTN, HLD, and recent right calcaneal fracture, s/p ORIF with 2 screws on 11/06/17, who was sent to [facility] [place] Dr. Modi's office with concern for failing hardware and erythema of the RLE. - Patient Problems (1) Closed fracture of right calcaneus Current Visit: Yes Status: Acute Priority: High Code(s): S92.001A - UNSP FRACTURE OF RIGHT CALCANEUS, INIT FOR CLOS FX SNOMED Code(s): 61864805 Comment: S/P ORIF 11/06/17, now with hardware failure S/P hardware removal, partial excision right calcaneous, repair achilles tendon , POD 2 Continue vancomycin by trough and pain management Plan to take down dressing tomorrow by ortho (2) CAD (coronary artery disease) Current Visit: Yes Status: Chronic Priority: Medium Code(s): I25.10 - ATHSCL HEART DISEASE OF [place] CORONARY ARTERY W/O ANG PCTRS SNOMED Code(s): 24265005 Comment: Continue asa and plavix Unclear why she is on full dose asa--will discuss with her (3) Diabetes mellitus type 1 Current Visit: Yes Status: Chronic Priority: High Code(s): E10.9 - TYPE 1 DIABETES MELLITUS WITHOUT COMPLICATIONS SNOMED Code(s): 19467702 Comment: Improved on insulin pump; she has a basal dose of 1U/hr starting at 12am, which reduces to 0.9U/hr at 10pm. She carb counts for her bolus doses. (4) ESRD (end stage renal disease) Current Visit: Yes Status: Chronic Priority: Medium Code(s): N18.6 - END STAGE RENAL DISEASE SNOMED Code(s): 64036396 Comment: Hemodialysis MWF per [facility] Continue Phoslo and Sensipar (5) HTN (hypertension) Current Visit: Yes Status: Chronic Priority: Medium Code(s): I10 - ESSENTIAL (PRIMARY) HYPERTENSION SNOMED Code(s): 54189436 Comment: Mostly normotensive Continue amlodipine and torsemide Status and Disposition: Inpatient. Anticipate discharge home when medically stable.
[2017-11-16] MEDS ORDERED: Dextrose 50% Syringe 50 ML* 25 GM/50 ML SYRINGE IV PUSH PRN (05:08)
[2017-11-16 05:17] LABS: ABS Basophils 0.1 10^3/ul (0-0.2); ABS Eosinophils 0.4 10^3/ul (0-0.6); ABS Lymphocytes 1.7 10^3/ul (1.0-4.8); ABS Monocytes 0.8 10^3/ul (0-0.8); ABS Neutrophils 5.8 10^3/ul (1.5-7.7); ABS Nucleated RBC 0 10^3/ul; Eosinophil % 4.1 % (0-6); Hematocrit 29 % (35-47); Hemoglobin 9.6 g/dl (12.0-16.0); Lymphocyte % 19.7 % (25-47); Mean Corpuscular HGB Conc 33 g/dl (31-36); Mean Corpuscular Hemoglobin 29 pg (27-31); Mean Corpuscular Volume 89 fL (80-97); Mean Platelet Volume 7.5 um3 (7.4-10.4); Nucleated Red Blood Cells % 0; Platelet Count 214 10^3/ul (150-450); Red Blood Count 3.28 10^6/ul (4.00-5.40); Red Cell Distribution Width 16 % (10.5-15); White Blood Count 8.8 10^3/ul (3.5-10.8)
[2017-11-16 05:32] LABS: EGFR Non-African American 6.9 (>60)
[2017-11-16] MEDS: Levothyroxine TAB* 100 MCG TAB PO SCH (05:36)
[2017-11-16] MEDS: Heparin VIAL(*) 5000 UNITS/ML VIAL (FIVE THOUSAND) SUBCUT SCH (05:36)
[2017-11-16] MEDS: Calcium Acetate CAP* 667 MG PO SCH (07:57)
[2017-11-16] MEDS: Aspirin EC TAB* 325 MG PO SCH (08:59)
[2017-11-16] MEDS: Clopidogrel TAB* 75 MG PO SCH (09:00)
--- NOTE | 2017-11-16 10:32 | PN ---
Progress Note - Progress Note Date of Service: 11/16/17 SOAP: Subjective: POD #3 Right ankle I&D, calcaneal ostectomy, removal of hardware and achilles advancement. Pt doing well, no pain. Denies CP/SOB, f/c, n/v. Objective: Vitals: Temp Pulse Resp BP Pulse Ox 98.4 F 84 16 127/71 98 11/16/17 03:39 11/16/17 03:39 11/16/17 08:00 11/16/17 03:39 11/16/17 03:39 Gen: A&Ox3, NAD at rest laying in bed RLE: Incision with mild maceration, erythema improved, no dehiscence. Calf soft , NT. +f/e at MTPs, sensation decreased due to neuropathy, 2+ DP. Assessment: POD #3 Right ankle I&D, calcaneal ostectomy, removal of hardware and achilles advancement Plan: New splint and dressing applied, VAC d/c'd D/C home today Keflex for 7 days F/u with Dr. Seals 11/19/17 Cont NWB RLE
--- NOTE | 2017-11-16 11:20 | PN ---
Progress Note - Progress Note Date of Service: 11/16/17 Note: Pt seen and examined. splint and incisional vac removed. wound looks improved. Minimal erythema new dressing placed with xeroform and DSD. New, well-padded right short leg plaster splint placed in equinus. OK for d/c from my standpoint. Will need oral abx for erythema mei-incisional. f/u friday in office for wound check. Eyad Seals MD
[2017-11-16 12:06] VITALS: BP 126/62
[2017-11-17] MEDS ORDERED: Vancomycin Random Level* NOTE FOLLOW UP ONE (06:00)
== END 2017-11-16 12:35 | disposition home or self-care (01) | DRG 492 ==
LOC: SSU 16:42 → OBSVTOIN 16:42 → UNDOADMOB 16:42
PROVIDERS: ADMIT Internal Medicine; ATTEND Orthopaedic Surgery
PROC: 0QTL0ZZ Resection of Right Tarsal, Open Approach (ICD-10-PCS; 2017-11-13)
PROC: 0LSV0ZZ Reposition Right Foot Tendon, Open Approach (ICD-10-PCS; 2017-11-13)
PROC: 0SPF04Z Removal of Internal Fixation Device from Right Ankle Joint, Open Approach (ICD-10-PCS; principal; 2017-11-13 15:15)
PROC: 5A1D70Z Performance of Urinary Filtration, Intermittent, Less than 6 Hours Per Day (ICD-10-PCS; 2017-11-14)
DX: T84.223A Displacement of internal fixation device of bones of foot and toes, initial encounter (principal); N18.6 End stage renal disease; L03.115 Cellulitis of right lower limb; I13.11 Hypertensive heart and chronic kidney disease without heart failure, with stage 5 chronic kidney disease, or end stage renal disease; S82.401D Unspecified fracture of shaft of right fibula, subsequent encounter for closed fracture with routine healing; X58.XXXA Exposure to other specified factors, initial encounter; E10.22 Type 1 diabetes mellitus with diabetic chronic kidney disease; E10.21 Type 1 diabetes mellitus with diabetic nephropathy; E10.319 Type 1 diabetes mellitus with unspecified diabetic retinopathy without macular edema; S92.001D Unspecified fracture of right calcaneus, subsequent encounter for fracture with routine healing; E03.9 Hypothyroidism, unspecified; W18.30XD Fall on same level, unspecified, subsequent encounter; E78.5 Hyperlipidemia, unspecified; I25.10 Atherosclerotic heart disease of native coronary artery without angina pectoris; E10.51 Type 1 diabetes mellitus with diabetic peripheral angiopathy without gangrene; Z96.41 Presence of insulin pump (external) (internal); Y92.9 Unspecified place or not applicable; Z99.2 Dependence on renal dialysis; Z79.4 Long term (current) use of insulin; Z98.61 Coronary angioplasty status; Z83.3 Family history of diabetes mellitus; Z79.1 Long term (current) use of non-steroidal anti-inflammatories (NSAID); Z79.02 Long term (current) use of antithrombotics/antiplatelets; Z79.82 Long term (current) use of aspirin; Z79.899 Other long term (current) drug therapy
CPT/HCPCS: 36415; 80048; 80053; 80202; 82947; 83036; 85025; 85610; 85652; 85730; 86140; 87040; 88300; 90935; A9270-GY; A9272; G0257; G8978-GP-CJ; G8979-GP-CI; J1644; J2405; J2704; J3010; J3370

== ENCOUNTER 2018-02-13 17:20 | Emergency (ER) | payer MEDICARE, OTHER ==
--- OUTSIDE RECORDS SUMMARY | 2018-02-13 17:57 | XMS REPORT | Continuity of Care Document ---
:1965 External Reference #:[id number] Author Name Rosendo Hutson Care Team Providers Name Role Phone Sanjay Chavez MD Primary Care Physician Unavailable Payers Type Date Identification Numbers Payment Provider Subscriber Policy Number: [id number] Medicare Katie Pimentel PayID: [id number] [address] [place] [address] Policy Number: [id number] [facility] Katie Pimentel Group Number: [id number] [facility] PayID: [id number] [address] [place] [address] Advance Directives Description No Information Available Problems Date Description Provider Status Onset: 07/06/2015 Polyneuropathy Tracie Mendenhall M.D. Active Onset: 07/06/2015 Dizziness Tracie Mendenhall M.D. Active Onset: 07/06/2015 Restless legs rTacie Mendenhall M.D. Active Onset: 07/06/2015 Chronic renal failure Tracie Mendenhall M.D. Active Family History Date Family Member(s) Problem(s) Comments General No Current Problems General Unknown General Diabetes Social History Type Date Description Comments Sex Unknown Lives With Boyfriend Occupation Currently Working ETOH Use Denies alcohol use Tobacco Use Start: Unknown Patient has never smoked Recreational Drug Use Denies Drug Use Smoking Status Reviewed: 02/06/18 Patient has never smoked Exercise Type/Frequency Exercises sporadically Allergies, Adverse Reactions, Alerts Description No Known Drug Allergies Medications Medication Date Status Form Strength Qnty SIG Indications Ordering Provider Sulfamethoxazole/T 12/29 Active Tablets 800-160mg 30tab Take 1 S92.051A Eyad rimethoprim DS /2018 s tablet by elizabeth Seals MD twice daily Aspirin 11/07 Active Tablets 325mg 30tab 1 [...] week Novolog Active Solution 100Unit/M via pump / L Gabrielle-Kenrick Active Tablets 1 by Unknown /0000 mouth every day Calcium Acetate Active Tablets 667mg 3 tabs Unknown (Phos Binder) by mouth every meal which is twice daily Bystolic Active Unknown /0000 Keflex 11/28 Hx Capsules 500mg 56cap 1 tab by Eyad s mouth Bozena, - four MD 12/28 times day Oxycodone HCL 11/07 Hx Tablets 5mg 20tab 1 tabs by [facility] s mouth Bozena, - every 4-6 MD 02/05 hours needed Ultracet 04/23 Hx Tablets 37.5-325m 15tab 1 tab by Pam g s mouth Carrillo, - every 4-6 M.D. 09/17 hours needed pain Ropinirole HCL 07/05 Hx Tablets 0.25mg 120ta 1-4 tabs G25.81 Tracie M. bs by mouth Abdirashid, - every at M.D. 09/17 hs directed Tramadol 02/22 Hx Tablets 37.5-325m 30tab 1 -2 tabs Pam Hydrochloride/Acet g s by mouth Carrillo, aminophen - every 4-6 M.D. 04/24 hours needed pain Ultracet 04/22 Hx Tablets 37.5-325m 30tab 1 - 2 po Pam /2013 g s q4-6hr Carrillo, - prn pain M.D. 02/21 Humulin R 00/00 Hx Solution 100Unit/M 1unit siding Unknown /0000 L s scale - 02/21 Lantus /00 Hx Solution 100Unit/M 6Vial 30 Units Unknown /0000 L s qd - 02/21 Lisinopril 00 Hx Tablets 30tab 1 po qd Unknown [...] - with 09/17 Vitamin D Hx Capsules [id number] Mann, (Ergocalciferol) /0000 MD Charles - 09/17 Auryxia Hx Tablets 1GM 210 Mann, /0000 mg(Fe) MD Charles - 10/26 Immunizations Description No Information Available Vital Signs Date Vital Result Comment 02/06/2018 3:09pm Height 65 inches 5'5" Weight 166.00 lb Heart Rate 88 /min Respiratory Rate 15 /min Body Temperature 98.6 F Pain Level 0 BMI (Body Mass Index) 27.6 kg/m2 01/13/2018 2:53pm Height 65 inches 5'5" Weight 166.00 lb Heart Rate 88 /min Respiratory Rate 15 /min Body Temperature 99.0 F Pain Level 0 BMI (Body Mass Index) 27.6 kg/m2 12/29/2017 1:10pm Height 65 inches 5'5" Weight 166.00 lb Heart Rate 72 /min Respiratory Rate 15 /min Body Temperature 96.8 F Pain Level 0 BMI (Body Mass Index) 27.6 kg/m2 12/17/2017 3:23pm Heart Rate 76 /min Respiratory Rate 14 /min Body Temperature 98.6 F Pain Level 0 12/10/2017 2:35pm Height 65 inches 5'5" Weight 166.00 lb Heart Rate 80 /min BP Systolic 138 mmHg BP Diastolic 58 mmHg Body Temperature 99.2 F Pain Level 0 BMI (Body Mass Index) 27.6 kg/m2 11/28/2017 3:30pm Heart Rate 64 /min BP Systolic 128 mmHg BP Diastolic 84 mmHg Respiratory Rate 14 /min Body Temperature 98.7 F Pain Level 0 11/19/2017 3:17pm Height 65.5 inches 5'5.50" Weight 166.00 lb BP Systolic 140 mmHg BP Diastolic 68 mmHg Body Temperature 98.2 F BMI (Body Mass Index) 27.2 kg/m2 11/12/2017 1:51pm Height 65.5 inches 5'5.50" Weight 159.00 lb Heart Rate 88 /min BP Systolic 138 mmHg BP Diastolic 64 mmHg Respiratory Rate 18 /min Pain Level 3 BMI (Body Mass Index) 26.1 kg/m2 11/06/2017 2:42pm Height 65.5 inches 5'5.50" Heart Rate 90 /min BP Systolic 148 mmHg BP Diastolic 80 mmHg Respiratory Rate 20 /min Pain Level 5 O2 % BldC Oximetry 98 % 10/27/2017 2:46pm Height 65.5 inches 5'5.50" Weight 159.00 lb BP Systolic Sitting 142 mmHg BP Diastolic Sitting 70 mmHg Respiratory Rate 16 /min Pain Level 10 when walking, 4 when not BMI (Body Mass Index) 26.1 kg/m2 10/13/2017 1:05pm Height 65.5 inches 5'5.50" Weight 159.00 lb Heart Rate 90 /min BP Systolic Sitting 146 mmHg BP Diastolic Sitting 84 mmHg Respiratory Rate 18 /min Pain Level 0 BMI (Body Mass Index) 26.1 kg/m2 09/18/2017 3:12pm Height 65.5 inches 5'5.50" Weight 162.56 lb BP Systolic Sitting 138 mmHg BP Diastolic Sitting 68 mmHg Respiratory Rate 16 /min Pain Level 5 BMI (Body Mass Index) 26.6 kg/m2 06/26/2017 2:02pm Height 65.5 inches 5'5.50" Weight 165.00 lb Heart Rate 80 /min BP Systolic 139 mmHg BP Diastolic 81 mmHg Respiratory Rate 16 /min Body Temperature 98.0 F Pain Level 0 BMI (Body Mass Index) 27.0 kg/m2 05/29/2017 2:03pm Height 65.5 inches 5'5.50" Weight 165.00 lb Heart Rate 92 /min Respiratory Rate 14 /min Pain Level 1 BMI (Body Mass Index) 27.0 kg/m2 04/23/2017 11:37am Height 65.5 inches 5'5.50" Weight 165.00 lb BP Systolic 103 mmHg BP Diastolic 62 mmHg Respiratory Rate 16 /min Pain Level 8 BMI (Body Mass Index) 27.0 kg/m2 07/06/2015 12:46pm Height 65.5 inches 5'5.50" Weight 158.00 lb Heart Rate 54 /min BP Systolic Sitting 132 mmHg BP Diastolic Sitting 78 mmHg Respiratory Rate 14 /min BMI (Body Mass Index) 25.9 kg/m2 04/26/2015 3:36pm Weight 169.00 lb Heart Rate 80 /min BP Systolic Sitting 128 mmHg BP Diastolic Sitting 86 mmHg 04/05/2015 3:59pm Height 66 inches 5'6" Weight 160.00 lb Body Temperature 98.2 F BMI (Body Mass Index) 25.8 kg/m2 02/22/2015 2:06pm Height 66 inches 5'6" Weight 160.00 lb Heart Rate 84 /min BP Systolic Sitting 132 mmHg BP Diastolic Sitting 88 mmHg BMI (Body Mass Index) 25.8 kg/m2 04/22/2012 10:54am Height 66 inches 5'6" Weight 150.00 lb Heart Rate 78 /min BP Systolic Sitting 120 mmHg BP Diastolic Sitting 82 mmHg BMI (Body Mass Index) 24.2 kg/m2 Results Test Date Facility Test Result H/L Range Note Laboratory test 11/06/2017 [facility] Uric Acid 6.0 mg/dL N 2.3-6.6 finding [address] [place] [address] [phone] C Reactive Protein 9.88 mg/L High <8.01 Basic Metabolic Panel 11/06/2017 [facility] Sodium 136 mmol/L N 135-145 [address] [place] [address] [phone] Potassium 4.5 mmol/L N 3.5-5.0 Chloride 95 mmol/L Low 101-111 Co2 Carbon Dioxide 27 mmol/L N 22-32 Anion Gap 14 mmol/L High 2-11 Glucose 231 mg/dL High 70-100 Blood Urea Nitrogen 71 mg/dL High 6-24 Creatinine 8.32 mg/dL High 0.51-0.95 BUN/Creatinine Ratio 8.5 N 8-20 Calcium 9.5 mg/dL N 8.6-10.3 Egfr Non- 5.0 >60 Egfr 6.1 >60 1 CBC No Diff 11/06/2017 [facility] White Blood 8.7 10^3/uL N 3.5-10.[address] [place] [address] [phone] Red Blood Count 4.00 10^6/uL N 4.00-5.40 Hemoglobin 12.0 g/dL N 12.0-16.0 Hematocrit 35 % N 35-47 Mean Corpuscular Volume 88 fL N 80-97 Mean Corpuscular Hemoglobin 30 pg N 27-31 Mean Corpuscular HGB Conc 34 g/dL N 31-36 Red Cell Distribution Width 15 % N 10.5-15 Platelet Count 210 10^3/uL N 150-450 Mean Platelet Volume 8.0 um3 N 7.4-10.4 Laboratory test 11/06/2017 [facility] Partial 32.5 N 26.0- 36.[address] [address] PTT [phone] Inr/Protime 11/06/2017 [facility] Inr 0.90 N 0.77-1.[address] [place] [address] [phone] Laboratory test 11/06/2017 [facility] Point of 173 mg/dL High 70-100 [address] [address] [phone] Laboratory test 11/06/2017 [facility] Point of 140 mg/dL High 70-100 [address] [place] [address] [phone] Laboratory test 05/20/2017 [facility] Point of 151 mg/dL High 70-100 [address] [place] [address] [phone] Laboratory test 05/20/2017 [facility] Point of 184 mg/dL High 70-100 [address] [place] [address] [phone] Laboratory test 03/24/2015 [facility] Point of 200 mg/dL High 74-106 [address] [address] [phone] Laboratory test 03/24/2015 [facility] Point of 216 mg/dL High 74-106 [address] [address] [phone] 1 Because ethnic data is not always readily [...] 15-29 5 Kidney failure <15 (or dialysis) 2 Waste Transportation Technician: [id number] 3 Waste Transportation Technician: [id number] 4 Waste Transportation Technician: [id number] 5 Waste Transportation Technician: [id number] 6 Waste Transportation Technician: [id number] CARA ROSA 7 Waste Transportation Technician: [id number] VANDANA NOWAK Procedures Date Code Description Status 11/28/2017 36063 Short Leg Cast Completed 11/19/2017 64649 Short Leg Cast Completed 11/13/2017 64328 Partial Excision Bone Talus/Calcaneus Completed 11/13/2017 63332 Repair Achilles Tendon Secondary Completed 11/13/2017 45640 Repair Achilles Tendon Secondary Completed 11/13/2017 18843 Removal Implant Deep Wire,Screw Nail,Rafiq Or Plate Completed 11/06/2017 77752 FX Calcaneus W/Wo Fixation Open TX Completed 10/27/2017 39098 Rad Exam; Foot Limited Completed 10/13/2017 84326 Rad Exam; Ankle Comp Completed 09/18/2017 18942 Short Leg Cast Completed 05/20/2017 09022 Trigger Finger Release Incision / Tendon Sheath Incision Completed 05/20/2017 13170 Trigger Finger Release Incision / Tendon Sheath Incision Completed 05/20/2017 05750 Trigger Finger Release Incision / Tendon Sheath Incision Completed 05/20/2017 18588 Trigger Finger Release Incision / Tendon Sheath Incision Completed 03/24/2015 22573 Trigger Finger Release Incision / Tendon Sheath Incision Completed 03/24/2015 39069 Trigger Finger Release Incision / Tendon Sheath Incision Completed 04/28/2012 55876 Trigger Finger Release Incision / Tendon Sheath Incision Completed Encounters Type Date Location Provider Dx Diagnosis Office Visit 11/15/2017 [facility] Kinsey Vazquez, L03.115 Cellulitis of 11:14a casandra Mcgraw DO right lower limb Hospitalists S82.61xS Disp fx of lateral malleolus of right fibula, sequela 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 End stage renal disease Z99.2 Dependence on renal dialysis Office Visit 11/12/2017 [facility] Napoleon L03.115 Cellulitis of 11:13a casandra Mcgraw N.PDeysi right lower limb Hospitalists S82.61xS Disp fx of lateral malleolus of right fibula, sequela 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 End stage renal disease Z99.2 Dependence on renal dialysis Office 11/07/2017 [facility] [place] S92.051A Displaced oth Visit 11:49a Assoc,casandra Mercado NBrandon extraarticular Hospitalists fracture of r calcaneus, init M79.671 Pain in right foot Z99.2 Dependence on renal dialysis N18.6 End stage renal disease E10.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 Office Visit 11/06/2017 [facility] Eyad Seals, S92.051A Displaced oth 10:55a Services Of extraarticular C.M.ADeysi fracture of r calcaneus, init Office Visit 11/06/2017 [facility] Davian Stratton S92.051A Displaced oth 2:45p Services Of Sarah Calvillo MD extraarticular AT [place] fracture of r calcaneus, init Office Visit 10/27/2017 [facility] Davian Stratton S90.31xA Contusion of right 2:45p Services Of Sarah Calvillo MD foot, initial AT [place] encounter Office Visit 10/13/2017 [facility] Davian Stratton S82.61xD Disp fx of lateral 1:15p Services Of Sarah Calvillo MD malleolus of r AT [place] fibula, 7thD Office Visit 09/18/2017 [facility] Davian Stratton S82.61xA Disp fx of lateral 3:15p Services Of Sarah Calvillo MD malleolus of right AT [place] fibula, init Office Visit 04/23/2017 [facility] Pam M65.342 Trigger finger, 11:00a Services Of Molly Carrillo left ring finger C.M.ADeysi M65.322 Trigger finger, left index finger Office Visit 07/06/2015 1:00p [place] Chloé Watson G25.81 Restless legs Services Of Sarah Mendenhall M.D. syndrome E10.42 Type 1 diabetes mellitus with diabetic polyneuropathy R42 Dizziness and giddiness Office Visit 02/22/2015 1:40p [facility] Pam Carrillo M65.341 Trigger Services Of Sarah Barnes finger, right AT [place] ring finger Office Visit 04/09/2012 8:00a [facility] Pam Carrillo, 727.03 Trigger Finger Services Of Molly Mcgrath CDeysiMDeysiADeysi Plan of Treatment Future Appointment(s):02/27/2018 4:00 pm - Eyad Seals MD at [facility] Of C.MDeysiADeysi02/06/2018 - Eyad Seals, MDS92.051A Displaced other extraarticular fracture of right calcaneus,Follow up:Follow Up: 3 wssdpC72.011A Strain of right Achilles tendon, initial encounter
--- OUTSIDE RECORDS SUMMARY | 2018-02-13 17:57 | XMS REPORT ---
:1965 External Reference #:[id number] Author Organization [facility] Address [address], [address] [place] [address] Phone [phone] Care Team Providers Name Role Phone Sanjay Chavez MD Care Team Information Drafter (Cad) Electronic Unavailable Sanjay Chavez MD Primary Care Physician Unavailable Payers Type Date Identification Numbers Payment Provider Subscriber Medicare Primary Policy Number: [id number] Medicare Katie Pimentel PayID: [id number] [address] [place] [address] Commercial Policy Number: [id number] [facility] psicofxp Plan [facility] Katie Pimentel PayID: [id number] [address] [place] [address] [facility] Policy Number: [id number] Transplant Clinic [facility] Katie Mccray Loren PayID: [id number] [place] [id number] Problems Date Description Provider Status Onset: 08/05/2013 Closed fracture of neck of LawsSheng azul MD, Active metacarpal bone FACS Onset: 11/14/2013 Benign essential hypertension Aubree Lee ANP Active Onset: 11/14/2013 Hyperlipidemia Aubree Lee ANP Active Onset: 11/14/2013 Acute myocardial infarction Aubree Lee ANP Active Onset: 11/14/2013 Impaired renal function disorder Aubree Lee ANP Active Onset: 11/14/2013 Mitral valve disorder Aubree Lee ANP Active Onset: 04/14/2014 End-stage renal disease Aubree Lee ANP Active Onset: 07/26/2013 Chronic kidney disease stage 4 Active Onset: 07/26/2013 Hypertensive disorder Active Onset: 07/26/2013 Hypercholesterolemia Active Onset: 07/26/2013 Type 1 diabetes mellitus Active Onset: 07/26/2013 Acute coronary syndrome Active Onset: 07/26/2013 Hypothyroidism Active Onset: 07/26/2013 Diabetic renal disease Active Onset: 07/26/2013 Bilateral cataracts Active Onset: 10/23/2014 Coronary arteriosclerosis Aubree Lee ANP Active Onset: 03/07/2015 Essential hypertension Aubree Lee ANP Active Family History Date Family Member(s) Problem(s) Comments Mother Diabetes Mellitus Type 2 Social History Type Date Description Comments Lives With Roommate Occupation [employer] ADL's/IADL's Independent with all ADL's Cigarette Use Never Smoked Cigarettes ETOH Use Denies alcohol use Daily Caffeine Consumes on average 2 sodas per day Allergies, Adverse Reactions, Alerts Date Description Reaction Status Severity Comments 08/05/2013 NKDA active Medications Medication Date Status Form Strength Qnty SIG Indications Ordering Provider Carvedilol 01/06/ Active Tablets 3.125mg 60tab 1 tab by I42.9 Farida 2017 s mouth twice , Partha Watson M.D., [facility] Aspirin 01/06/ Active Tablets 81mg 1 by mouth I25.10 Farida 2017 every day , Partha Watson M.D., [facility] Clopidogrel 01/24/ Active Tablets 75mg 90tab 1 By Mouth Farida Bisulfate 2013 s Every Day , Partha Watson M.D., [facility] Gabapentin / Active Capsules 1200mg 1 po qd Unknown 0000 Levothyroxine / Active Tablets 100mcg 1 po qd Unknown Sodium 0000 Humalog / Active Solution 100Unit/ML as directed Unknown 0000 Gabrielle-Kenrick 0000/ Active Tablets 1 by mouth Unknown 0000 every day Torsemide 00/ Active Tablets 50mg 1 by mouth Unknown 0000 , and weekends Vitamin D / Active Capsules [id number] 1 cap by Unknown (Ergocalciferol 0000 mouth every ) week Crestor 00// Active Tablets 5mg 1 by mouth E78.5 Unknown 0000 every day Calcium Acetate 00/ Active Tablets 667mg 1 by mouth Unknown (Phos Binder) 0000 three times a day Entresto 00/00/ Active Tablets 24-26mg 1 by mouth I42.9 Unknown 0000 twice daily (hold morning dose on HD days) Entresto 01/06/ Hx Tablets 24-26mg 60tab 1 by mouth I42.9 Farida 2017 s twice daily , Partha Watson M.D., [facility] Amlodipine 09/03/ Hx Tablets 5mg 90tab 1 By Mouth I10 Farida Meng 2016 - s Every Day , Partha 01/06/ Molly Watson, 2018 [facility] Amlodipine 06/21/ Hx Tablets 5mg 90tab 1 by mouth I10 Taqueria Snyder 2016 - s at bedtime MD Sima 09/03/ on non 2016 dialysis days Amlodipine 10/21/ Hx Tablets 5mg 90tab 1 by mouth 401.1 Taqueria Snyder 2014 s every day MD Sima Crestor 10/21/ Hx Tablets 10mg 90tab 1 by mouth E78.5 Claudio 2014 s every day MD Sima Amlodipine 08/17/ Hx Tablets 2.5mg 90tab 1 by mouth 401.1 Taqueria Snyder 2014 - s every day MD Sima 2014 Isosorbide 07/25/ Hx Tablets ER 30mg 30tab 1 by mouth 414.01 Uvaldo Snydernitrate ER 2015 24HR s every day MD Sima Atorvastatin 11/12/ Hx Tablets 40mg 90tab 1 by mouth 272.4 Chino Nunn 2013 s every day Lul Gonzales MD, PhD Torsemide 11/12/ Hx Tablets 20mg 60tab 2 by mouth 588.9 Edouard 2013 s every day Lul Gonzales MD, PhD Amlodipine 09/10/ Hx Tablets 5mg 90tab 1 po qd 401.1 Taqueria Nunn 2013 - s Lul Gonzales 08/17/ , PhD 2014 Clonidine HCL 09/10/ Hx Tablets 0.1mg 30tab 1/2 po tid Edouard, 2013 s Lul Gonzales MD, PhD No Active 06/19/ Hx Unknown Medications 2013 - 2013 Clonidine HCL 00/ Hx Tablets .1mg 1 po tid Unknown - 2013 Aspirin / Hx Tablets DR 325mg 1 po qd I25.10 Unknown 0000 - 2017 Atorvastatin 00/ Hx Tablets 20mg 1 po qd 272.4 Unknown Calcium - 2013 Clopidogrel /00/ Hx Tablets 75mg 1 po qd Unknown - 2013 Phoslo / Hx Capsules 667mg 1 po with Unknown 0000 meals Zetia / Hx Tablets 10mg 1 po qd 272.4 Unknown - 2013 Ferrous Sulfate / Hx Tablets 325(65Fe) 1 po bid Unknown 0000 mg Furosemide / Hx Tablets 80mg 1 po qd 588.9 Unknown - 2013 Metoprolol 00/ Hx Tablets 50mg 1/2 po bid Unknown Tartrate 0000 Sodium / Hx Tablets 650mg 1 po bid Unknown Bicarbonate 0000 Vitamin D High / Hx Capsules 1000Unit 90cap 1 by mouth Unknown Potency 0000 s q week Renvela / Hx Packet 2.4gm with meals Unknown 0000 Lisinopril 00/ Hx Tablets 10mg 1 by mouth Unknown 0000 every day Metolazone 00/ Hx Tablets 5mg 1 by mouth Unknown 0000 every other day 1/2 hour before the in the morning furosemide as needed Bystolic / Hx Tablets 10mg 1 by mouth I10 Unknown 0000 - every day 2017 Vital Signs Date Vital Result Comment 01/29/2018 BP Systolic Sitting Right Arm 122 mmHg BP Diastolic Sitting Right Arm 63 mmHg Heart Rate 81 /min Respiratory Rate 18 /min Height 66 inches 5'6" Weight 167.00 lb BMI (Body Mass Index) 27.0 kg/m2 BSA (Body Surface Area) 1.85 m2 Flippin body weight in kilograms 59 O2 % BldC Oximetry 99 % 01/06/2018 BP Systolic Sitting Right Arm 122 mmHg BP Diastolic Sitting Right Arm 68 mmHg Heart Rate 81 /min Respiratory Rate 18 /min Height 66 inches 5'6" Weight 167.00 lb BMI (Body Mass Index) 27.0 kg/m2 BSA (Body Surface Area) 1.85 m2 Flippin body weight in kilograms 59 09/03/2016 BP Systolic Sitting Right Arm 164 mmHg BP Diastolic Sitting Right Arm 90 mmHg Heart Rate 80 /min Respiratory Rate 14 /min Height 66 inches 5'6" Weight 162.00 lb BMI (Body Mass Index) 26.1 kg/m2 BSA (Body Surface Area) 1.83 m2 Flippin body weight in kilograms 59 06/21/2016 BP Systolic Sitting Right Arm 198 mmHg BP Diastolic Sitting Right Arm 105 mmHg Heart Rate 99 /min Respiratory Rate 16 /min Height 66 inches 5'6" Weight 164.00 lb BMI (Body Mass Index) 26.5 kg/m2 BSA (Body Surface Area) 1.84 m2 03/07/2015 BP Systolic Sitting Right Arm 138 mmHg BP Diastolic Sitting Right Arm 88 mmHg Heart Rate 84 /min Respiratory Rate 16 /min Height 66 inches 5'6" Weight 155.00 lb BMI (Body Mass Index) 25.0 kg/m2 BSA (Body Surface Area) 1.79 m2 10/21/2014 BP Systolic Sitting Right Arm 170 mmHg BP Diastolic Sitting Right Arm 92 mmHg Heart Rate 80 /min Respiratory Rate 16 /min Height 66 inches 5'6" Weight 151.00 lb BMI (Body Mass Index) 24.4 kg/m2 BSA (Body Surface Area) 1.77 m2 2014 BP Systolic Sitting Right Arm 142 mmHg BP Diastolic Sitting Right Arm 80 mmHg Heart Rate 88 /min Respiratory Rate 16 /min Height 66 inches 5'6" Weight 148.00 lb BMI (Body Mass Index) 23.9 kg/m2 BSA (Body Surface Area) 1.76 m2 07/25/2014 BP Systolic Sitting Right Arm 132 mmHg BP Diastolic Sitting Right Arm 72 mmHg Heart Rate 80 /min Respiratory Rate 16 /min Height 66 inches 5'6" Weight 142.00 lb BMI (Body Mass Index) 22.9 kg/m2 BSA (Body Surface Area) 1.73 m2 04/12/2014 Heart Rate 68 /min Respiratory Rate 16 /min Height 66 inches 5'6" Weight 146.00 lb BMI (Body Mass Index) 23.6 kg/m2 BSA (Body Surface Area) 1.75 m2 11/12/2013 BP Systolic Sitting Right Arm 142 mmHg BP Diastolic Sitting Right Arm 80 mmHg Heart Rate 76 /min Respiratory Rate 16 /min Height 66 inches 5'6" Weight 152.00 lb BMI (Body Mass Index) 24.5 kg/m2 BSA (Body Surface Area) 1.78 m2 09/24/2013 BP Systolic Sitting Right Arm 118 mmHg BP Diastolic Sitting Right Arm 70 mmHg Heart Rate 78 /min Respiratory Rate 16 /min Height 66 inches 5'6" 09/10/2013 BP Systolic Sitting Right Arm 180 mmHg 172/96 BP Diastolic Sitting Right Arm 98 mmHg 172/96 Heart Rate 72 /min Respiratory Rate 16 /min Height 66 inches 5'6" Weight 149.00 lb BMI (Body Mass Index) 24.0 kg/m2 BSA (Body Surface Area) 1.76 m2 08/10/2013 BP Systolic Sitting Right Arm 100 mmHg BP Diastolic Sitting Right Arm 64 mmHg Heart Rate 72 /min Respiratory Rate 16 /min Height 66 inches 5'6" Weight 147.00 lb BMI (Body Mass Index) 23.7 kg/m2 BSA (Body Surface Area) 1.75 m2 08/05/2013 BP Systolic Sitting Right Arm 100 mmHg BP Diastolic Sitting Right Arm 60 mmHg Height 66 inches 5'6" Weight 153.00 lb BMI (Body Mass Index) 24.7 kg/m2 BSA (Body Surface Area) 1.78 m2 Results Test Date Test Result H/L Range Note Laboratory test 12/09/2017 139 mmol/L 136 - 145 finding Laboratory test 12/09/2017 6.7 10*3/uL 4.1 - 11.0 finding Laboratory test 12/09/2017 5.1 mg/dL High 2.5 - 4.5 finding Laboratory test 12/09/2017 86 mg/dL 70 - 99 finding Laboratory test 12/08/2017 64.8 s High 22.0 - 32.6 finding Laboratory test 12/07/2017 7.49 ng/mL High 0.00 - 0.10 finding Laboratory test 12/07/2017 1.07 finding Laboratory test 12/06/2017 14.72 ng/mL High 0.00 - 0.10 finding Laboratory test 12/05/2017 Beta Hydroxybutyrate 0.98 mmol/L High <0.28 finding Laboratory test 12/05/2017 0.6 10*3/uL 0.0 - 0.8 finding Neutrophils % 81.1 % High 35.0 - 75.0 Laboratory test finding 12/05/2017 Performed By [facility] Clinical Staff Poc BUN/Creatinine Ratio 5.6 Low 10.0 - 20.0 Ratio Poc GFR 5 Low >59 ml/min/1.73m2 Poc GFR () 6 Low >59 ml/min/1.73m2 Poc GFR Interpretation --------- Poc Glucose (iStat) 108 High 70 - 99 MG/DL Poc Hematocrit 34 % Low 36.0 - 47.0 Poct glucose 03/20/2016 Glucose, Poc 171 mg/dL High 70 - 99 Basic metabolic panel 03/20/2016 Anion Gap 9 mmol/L 7 - 16 BUN/Creatinine Ratio 4.1 Ratio Low 10.0 - 20.0 Calcium 8.5 mg/dL 8.4 - 10.2 Chloride 101 mmol/L 100 - 108 Co2 31 mmol/L 22 - 31 Creatinine 4.62 mg/dL High 0.60 - 1.00 GFR MDRD Af Amer 12 ml/min/1.73m2 Low >59 GFR MDRD Non Af Amer 10 ml/min/1.73m2 Low >59 Glom Filt Rate, Est See Notes Glucose 204 mg/dL High 70 - 99 Potassium 4.1 mmol/L 3.6 - 5.2 Sodium 141 mmol/L 136 - 145 Urea nitrogen 19 mg/dL 7 - 24 CBC 03/20/2016 Hematocrit 25.1 % Low 36.0 - 47.0 Hemoglobin 8.5 g/dL Low 12.0 - 16.0 MCH 31.5 pg 27.0 - 32.0 MCHC 33.8 g/dL 32.0 - 36.0 MCV 93.2 fL 80.0 - 95.0 MPV 7.6 fL 7.1 - 10.7 Platelets 180 10*3/uL 150 - 450 RBC 2.69 10*6/uL Low 4.00 - 5.40 RDW 14.3 % 10.5 - 14.5 WBC 8.0 10*3/uL 4.1 - 11.0 MRSA nasal screen by PCR 03/19/2016 Meth Res Staph Aur Negative Negative Specimen Description Nares T4, free 03/19/2016 Free T4 1.23 ng/dL 0.76 - 1.46 TSH 03/19/2016 TSH, High Sensitivity 1.254 mIU/L 0.360 - 4.170 Troponin I 03/19/2016 Troponin I <0.06 0.00 - 0.10 ng/mL Vancomycin, random 03/19/2016 Vancomycin Rm 18.1 ug/mL C-reactive protein 03/19/2016 CRP 6.9 mg/dL High 0.0 - 0.5 Hemoglobin A1c 03/19/2016 Est. Average Glucose 214 mg/dL Hemoglobin A1c 9.1 % High 4.0 - 6.0 Hepatic function panel 03/19/2016 Alb/Glob ratio 0.9 Ratio Albumin 3.2 g/dL Low 3.5 - 4.6 Alkaline Phosphatase 152 U/L High 45 - 117 Alt 31 U/L 12 - 78 Ast 23 U/L 11 - 39 Bilirubin, Direct 0.2 mg/dL 0.0 - 0.3 Bilirubin, Indirect 0.4 mg/dL 0.0 - 0.7 Bilirubin, Total 0.6 mg/dL 0.0 - 1.0 Globulin 3.4 g/dL 2.7 - 4.3 Protein, Total 6.6 g/dL 6.4 - 8.2 Hepatitis B surface 03/19/2016 Hepatitis B Surface Ag Negative Negative antigen Magnesium 03/19/2016 Magnesium 2.3 mg/dL 1.7 - 2.4 Phosphorus 03/19/2016 Phosphorus 5.7 mg/dL High 2.5 - 4.5 Procalcitonin 03/19/2016 Procalcitonin 1.05 ng/mL High <0.10 Protime-Inr 03/19/2016 Inr 1.10 1 Protime 11.2 s 9.2 - 11.9 aPTT 03/19/2016 aPTT 30.3 s 22.0 - 32.6 CBC W/Automated Diff 07/29/2014 White Blood Count 9.8 K/uL 3.1-10.7 Red Blood Count 3.06 M/uL Low 3.90-5.40 Hemoglobin 9.3 gm/dL Low 11.6-15.8 Hematocrit 26.7 % Low 36.0-46.1 Mean Cell Volume 87.3 fl 80.9-99.0 Mean Corpuscular HGB 30.4 pg 25.9-32.7 Mean Corpuscular HGB Conc 34.8 g/dL High 30.8-34.3 Platelet Count 213 K/uL 155-360 Red Cell Distri Width SD 39.5 fl 3-47 Red Cell Distri Width %CV 12.9 % 11.7-14.4 Mean Platelet Volume 9.4 fL 8.9-12.4 Neut# 6.85 K/uL 1.0-7.0 Lymph # 1.99 K/uL 1.8-7.0 Pacific # 0.71 K/uL 0.3-0.9 Eos # 0.19 K/uL 0.0-0.5 Baso # 0.04 K/uL 0.0-0.1 LDL Cholesterol Profile 07/29/2014 Cholesterol 97 mg/dL < 200 1 Triglycerides 136 mg/dL < 150 2 HDL Cholesterol 34 mg/dL > 40 3 LDL-Cholesterol 36 mg/dL < 100 4 Liver Function Tests 07/29/2014 Total Protein 6.7 g/dL 6.4-8.2 Albumin 3.0 g/dL Low 3.4-5.0 Globulin 3.7 g/dL 1.9-4.3 Alb/Glob 0.8 ratio Bilirubin,Total 0.4 mg/dL 0.2-1.0 Bilirubin,Direct 0.1 mg/dL 0.0-0.2 Bilirubin,Indirect 0.3 mg/dL 0.0-0.9 Sgot/Ast 30 U/L 15-37 SGPT/Alt 67 U/L 12-78 Alkaline Phosphatase 150 U/L High 45-117 Laboratory test finding 07/29/2014 Act Partial Thrombo 31.4 seconds 23.4- 35.0 5 Time Protime 07/29/2014 Protime 14.2 seconds 12.0-14.4 Inr 1.1 0.9-1.1 6 Differential-WBC Confirm 07/29/2014 Total Cells Counted 100 #CELLS Band% 4 % 0-8 Neutrophils% 74 % High 33-73 Lymph% 16 % Low 17-56 Monocyte% 5 % 0-10 Eosinophil% 1 % 0-5 Platelet Estimate NORMAL Anisocytosis 0-1+ Basic Metabolic Panel 07/29/2014 Glucose 330 mg/dL High 74-106 BUN 72 mg/dL High 7-18 Creatinine 7.2 mg/dL High 0.6-1.3 Glom Filtration Rate, Estimate 6 mL/min >60 If 8 mL/min >60 7 BUN/Creat 10.0 ratio Sodium 135 mmol/L Low 136-145 Potassium 3.4 mmol/L Low 3.5-5.1 Chloride 95 mmol/L Low 98-107 Carbon Dioxide 25 mmol/L 21-32 Anion Gap 15 mEq/L 8-16 Calcium 8.5 mg/dL 8.5-10.1 LDL Cholesterol Profile 08/13/2013 Cholesterol 125 mg/dL 120-200 Triglycerides 202 mg/dL 16-231 HDL Cholesterol 33 mg/dL 29-83 LDL-Cholesterol 52 mg/dL Low 62-185 Basic Metabolic Panel 08/13/2013 Glucose 173 mg/dL High 76-115 BUN 86 mg/dL High 5-23 Creatinine 5.1 mg/dL High 0.5-1.4 Glom Filtration Rate, Estimate 10 mL/min >60 If 12 mL/min >60 8 BUN/Creat 16.8 ratio Sodium 138 mmol/L 136-145 Potassium 4.1 mmol/L 3.5-5.1 Chloride 102 mmol/L 98-107 Carbon Dioxide 26 mEq/L 18-29 Anion Gap 14 mEq/L 8-16 Calcium 9.4 mg/dL 8.5-10.1 Liver Function Tests 08/13/2013 Total Protein 7.2 g/dL 6.3-8.0 Albumin 3.3 g/dL Low 3.5-5.0 Globulin 3.9 g/dL 1.9-4.3 Alb/Glob 0.8 ratio Bilirubin,Total 0.3 mg/dL 0.2-1.2 Bilirubin,Direct < 0.1 mg/dL Low 0.1-0.4 Bilirubin,Indirect 0.2 mg/dL 0.0-0.9 Sgot/Ast 51 U/L High 16-40 SGPT/Alt 90 U/L High 30-65 Alkaline Phosphatase 165 U/L High 50-136 1 Reference Guidelines*: Desirable: ........... < 200 mg/dL Borderline High: ..... 200-239 mg/dL High: ................ >=240 mg/dL * The National Cholesterol Education Program (NCEP) 2 Reference Guidelines*: Normal: ............. < 150 mg/dL Borderline High: .... 150-199 mg/dL High: ............... 200-499 mg/dL Very High: .......... > 500 mg/dL * Source: National Cholesterol Education Program (NCEP) 3 Reference Guidelines*: Low HDL: ..... < 40 mg/dL Normal: ..... 40-60 mg/dL Desirable: ... > 60 mg/dL *The National Cholesterol Education Program(NCEP) 4 Reference Guidelines*: Optimal:........... <100 mg/dL Near Optimal....... 100-129 mg/dL Borderline High.... 130-159 mg/dL High............... 160-189 mg/dL Very High.......... >=190 mg/dL * Source: National Cholesterol Education Program (NCEP) 5 QUERY: Anticoagulant Therapy? Y QUERY: Date of Last Dose: 07/29/14 QUERY: Time of Last Dose: 7AM 6 THERAPEUTIC INR RANGE: 2.0 - 3.0 DVT, Pulmonary embolus, prophylaxis against venous thrombosis or systemic embolization in high risk patients. 2.5 - 3.5 Mechanical heart valves 7 Note: Persistent reduction for 3 months or more in an eGFR <60 mL/min/1.73 m2 defines CKD. Patients with eGFR values >/=60 mL/min/1.73 m2 may also have CKD if evidence of persistent proteinuria is present. The original MDRD equation for estimated GFR is not valid for patients less than 18 years of age. Additional information may be found at www.kdoqi.org. 8 Note: Persistent reduction for 3 months or more in an eGFR <60 mL/min/1.73 m2 defines CKD. Patients with eGFR values >/=60 mL/min/1.73 m2 may also have CKD if evidence of persistent proteinuria is present. The original MDRD equation for estimated GFR is not valid for patients less than 18 years of age. Additional information may be found at www.kdoqi.org. Procedures Date CPT Code Description Status 01/06/2018 01045 EKG-Tracing And Report Completed 05/27/2017 58879 Stress Test Interpre And Report Only Completed 05/27/2017 77232 Stress Test Physician Super Only Completed 05/27/2017 20359 Myocardial Imaging Tomographic Multiple Study AT Rest Completed Or Stress 05/30/2016 20439 Stress Test Interpre And Report Only Completed 05/30/2016 40374 Stress Test Physician Super Only Completed 05/30/2016 36726 Myocardial Imaging Tomographic Multiple Study AT Rest Completed Or Stress 11/06/2015 95077 Echocardiogram Complete Completed 01/18/2015 47340 Myocardial Imaging Tomographic Multiple Study AT Rest Completed Or Stress 01/18/2015 82819 Stress Test Physician Super Only Completed 01/18/2015 62305 Stress Test Physician Super Only Completed 01/18/2015 27291 Stress Test Interpre And Report Only Completed 03/15/2014 35638 EKG Interpretation And Report Only Completed 08/10/2013 00700 EKG-Tracing And Report Completed 08/05/2013 55478 FX Metacarpal closed single w/o manipulation Completed 07/23/2013 80862 Echocardiogram Complete Completed 03/17/2013 11096 Stress Test Interpre And Report Only Completed 03/17/2013 21182 Stress Test Physician Super Only Completed 03/17/2013 79002 Stress Test Physician Super Only Completed 03/17/2013 73262 Myocardial Imaging Tomographic Multiple Study AT Rest Completed Or Stress 12/14/2007 24650 EKG Interpretation And Report Only Completed Encounters Type Date Location Provider CPT E/M Dx Office Visit 01/06/2018 1:40p Cardiology Office Radha Curtis, [address] I25.10 PA I42.9 E78.5 I10 N18.6 Office Visit 09/03/2016 1:10p [place] [address] I10 I25.10 E78.5 N18.6 Office Visit 06/21/2016 11:00a [place] [address] I25.10 R94.30 Z01.818 N18.6 I10 Office Visit 03/07/2015 3:30p [place] [address] I25.10 N18.6 I10 E78.5 Office Visit 10/21/2014 3:30p [place] [address] 414.01 585.6 272.4 401.1 424.0 Office Visit 2014 3:00p Cardiology Office Aubree Lee ANP 27532 414.01 585.6 272.4 401.1 424.0 Office Visit 07/25/2014 2:00p Cardiology Office [place]ree Lee ANP 01522 414.01 585.6 401.1 272.4 424.0 Office Visit 04/12/2014 3:30p [place]iology [place]P [address] 585.6 401.1 272.4 410.80 424.0 Office Visit 11/12/2013 3:40p [place] [address] 401.1 272.4 410.80 588.9 424.0 Office Visit 09/24/2013 2:00p Cardiology [place] [address] 401.1 Office Visit 09/10/2013 2:50p [place] [address] 401.1 272.4 410.80 424.0 Office Visit 08/10/2013 2:20p [place] [address] 410.80 424.0 401.1 272.4 368.12 Office Visit 07/26/2013 11:19a Cardiology Office Lul Nunn, 20012 410.80 MD, PhD Office Visit 07/23/2013 11:29a [facility] Marquis Gonzalez, 49488 250.12 [facility] 586 Office Visit 07/23/2013 11:18a Cardiology [place] 713[address] 410.80 Office Visit 02/05/2006 10:00a Operating Room Ruslan Mahajan M.D. 79564 388.70 Office Visit 12/25/2005 10:30a Operating Room Ruslan Mahajan M.D. 66699 380.10 Plan of Care 01/29/2018 - Radha Curtis, PAI25.10 Athscl heart disease of [place] coronary artery w/o ang pctrsNew Orders:LahmxbcaifpoyyS86.9 Cardiomyopathy, unspecifiedNew Orders:[id number] Essential (primary) ugjyqajcyblmE09.5 Hyperlipidemia, unspecifiedNew Labs:LDL Cholesterol ProfileLiver Function TestsAllFollow up:6 weeks with HS Echo now
--- OUTSIDE RECORDS SUMMARY | 2018-02-13 17:57 | XMS REPORT ---
:1965 External Reference #:[id number] Author Organization [facility] Address [address], [address] [place] [address] Phone [phone] Care Team Providers Name Role Phone Sanjay hCavez MD Care Team Information Puzzle Assembler Unavailable Sanjay Chavez MD Primary Care Physician Unavailable Payers Type Date Identification Numbers Payment Provider Subscriber Medicare Primary Policy Number: [id number] Medicare Katie Pimentel PayID: [id number] [address] [place] [address] Commercial Policy Number: [id number] [facility] [employer] [facility] Katie Pimentel PayID: [id number] [address] [place] [address] [facility] Part B Policy Number: [id number] Transplant Clinic [facility] Katie Mccray Loren PayID: [id number] [place] [address] Problems Date Description Provider Status Onset: 08/05/2013 [...] Date Description Comments Lives With Roommate Occupation [employer] ADL's/IADL's Independent with all [...] s mouth twice , Partha Watson M.D., [facility] Aspirin 01/06/ Active Tablets 81mg 1 by mouth I25.10 Farida 2017 every day , Partha Watson M.D., [facility] Clopidogrel 01/24/ Active Tablets 75mg 90tab 1 By Mouth [place] Bisulfate 2013 s Every Day , Partha Watson M.D., [facility] Gabapentin / Active Capsules 1200mg 1 po qd Unknown 0000 Levothyroxine / Active Tablets 100mcg 1 po qd Unknown Sodium 0000 Humalog / Active Solution 100Unit/ML as directed Unknown 0000 Gabrielle-Kenrick 0000/ Active Tablets 1 by mouth Unknown 0000 every day Torsemide 00/ Active Tablets 50mg 1 by mouth Unknown 0000 , and weekends Vitamin D / Active Capsules [id number] 1 cap by Unknown (Ergocalciferol 0000 mouth [...] s twice daily , Partha Watson M.D., [facility] Amlodipine 09/03/ Hx Tablets 5mg 90tab 1 By Mouth I10 Farida Meng 2016 - s Every Day , Partha 01/06/ Molly Watson, 2018 [facility] Amlodipine 06/21/ Hx Tablets 5mg 90tab 1 by mouth I10 Taqueria Snyder 2016 - s at bedtime MD Sima 09/03/ on non 2016 dialysis days Amlodipine 10/21/ Hx Tablets 5mg 90tab 1 by mouth 401.1 Tauqeria Snyder 2014 s every day MD Sima [...] kg/m2 BSA (Body Surface Area) 1.85 m2 [place] body weight in kilograms 59 O2 % BldC Oximetry 99 % 01/06/2018 BP Systolic Sitting Right Arm 122 mmHg BP Diastolic Sitting Right Arm 68 mmHg Heart Rate 81 /min Respiratory Rate 18 /min Height 66 inches 5'6" Weight 167.00 lb BMI (Body Mass Index) 27.0 kg/m2 BSA (Body Surface Area) 1.85 m2 [place] body weight in kilograms 59 09/03/2016 BP Systolic Sitting Right Arm 164 mmHg BP Diastolic Sitting Right Arm 90 mmHg Heart Rate 80 /min Respiratory Rate 14 /min Height 66 inches 5'6" Weight 162.00 lb BMI (Body Mass Index) 26.1 kg/m2 BSA (Body Surface Area) 1.83 m2 [place] body weight in kilograms 59 06/21/2016 BP [...] 75.0 Laboratory test finding 12/05/2017 Performed By [facility] Clinical Staff Poc BUN/Creatinine Ratio 5.6 Low [...] K/uL 1.0-7.0 Lymph # 1.99 K/uL 1.8-7.0 [place] # 0.71 K/uL 0.3-0.9 Eos # 0.19 [...] Procedures Date CPT Code Description Status 01/06/2018 01894 EKG-Tracing And Report Completed 05/27/2017 75395 Stress Test Interpre And Report Only Completed 05/27/2017 69209 Stress Test Physician Super Only Completed 05/27/2017 31160 Myocardial Imaging Tomographic Multiple Study AT Rest Completed Or Stress 05/30/2016 23961 Stress Test Interpre And Report Only Completed 05/30/2016 49792 Stress Test Physician Super Only Completed 05/30/2016 50935 Myocardial Imaging Tomographic Multiple Study AT Rest Completed Or Stress 11/06/2015 22249 Echocardiogram Complete Completed 01/18/2015 88935 Myocardial Imaging Tomographic Multiple Study AT Rest Completed Or Stress 01/18/2015 62997 Stress Test Physician Super Only Completed 01/18/2015 32399 Stress Test Physician Super Only Completed 01/18/2015 37200 Stress Test Interpre And Report Only Completed 03/15/2014 48663 EKG Interpretation And Report Only Completed 08/10/2013 51385 EKG-Tracing And Report Completed 08/05/2013 40027 FX Metacarpal closed single w/o manipulation Completed 07/23/2013 76746 Echocardiogram Complete Completed 03/17/2013 31286 Stress Test Interpre And Report Only Completed 03/17/2013 09305 Stress Test Physician Super Only Completed 03/17/2013 78791 Stress Test Physician Super Only Completed 03/17/2013 15170 Myocardial Imaging Tomographic Multiple Study AT Rest Completed Or Stress 12/14/2007 34504 EKG Interpretation And Report Only Completed Encounters Type Date Location Provider CPT E/M Dx Office Visit 01/29/2018 2:40p Cardiology Office Radha Curtis, 70091 I25.10 PA I42.9 I10 E78.5 Office Visit 01/06/2018 1:40p [place] [address] I25.10 I42.9 E78.5 I10 N18.6 Office Visit 09/03/2016 1:10p [place] [address] I10 I25.10 E78.5 N18.6 Office Visit 06/21/2016 11:00a [place] [address] I25.10 R94.30 Z01.818 N18.6 I10 Office Visit 03/07/2015 3:30p [place] [address] I25.10 N18.6 I10 E78.5 Office Visit 10/21/2014 3:30p Cardiology Office Aubree Lee ANP 35943 414.01 585.6 272.4 401.1 424.0 Office Visit 2014 3:00p Cardiology Office Aubree Lee ANP 90963 414.01 585.6 272.4 401.1 424.0 Office Visit 07/25/2014 2:00p Cardiology Office Aubree Lee A., ANP 27749 414.01 585.6 401.1 272.4 424.0 Office Visit 04/12/2014 3:30p Cardiology Office Aubree Lee A., ANP 45297 585.6 401.1 272.4 410.80 424.0 Office Visit 11/12/2013 3:40p Cardiology Office AdenmarvinAubree craig A., ANP 36402 401.1 272.4 410.80 588.9 424.0 Office Visit 09/24/2013 2:00p Cardiology Office RosaKimh A., ANP 22898 401.1 Office Visit 09/10/2013 2:50p [place] [address] 401.1 272.4 410.80 424.0 Office Visit 08/10/2013 2:20p [place] [address] 410.80 424.0 401.1 272.4 368.12 Office Visit 07/26/2013 11:19a Cardiology Office Lul Nunn, 90365 410.80 MD, PhD Office Visit 07/23/2013 11:29a [facility] [address] 250.12 [facility] 586 Office Visit 07/23/2013 11:18a Cardiology [place] [address] 410.80 Office Visit 02/05/2006 10:00a Operating Room Ruslan Mahajan M.D. 90870 388.70 Office Visit 12/25/2005 10:30a Operating Room Ruslan Mahajan M.D. 45418 380.10 Plan of Care Future Appointment(s):03/17/2018 11:15 am - Siam Snyder MD at Cardiology [id number]/29/2018 - Radha Curtis, PAI25.10 [facility] heart disease of [place] coronary artery w/o ang pctrsNew Orders:EchocardiogramComments:Will repeat echo to reassess LVF. Continue with medical management.I42.9 Cardiomyopathy, unspecifiedNew Orders:EchocardiogramComments:Obtain recent labs drawn at HD. Will repeat echo to help guide further management.I10 Essential (primary) hypertensionComments:Continue to monitor BP's at HD MWF. No changes.E78.5 Hyperlipidemia, unspecifiedNew Labs:LDL Cholesterol ProfileLiver Function TestsComments:Due for lipid monitor.AllFollow up:6 weeks
--- OUTSIDE RECORDS SUMMARY | 2018-02-13 17:57 | XMS REPORT ---
:1965 External Reference #:[id number] Author Organization [facility] Address [address], [address] [place] [address] Phone [phone] Care Team Providers Name Role Phone Sanjay Chavez MD Care Team Information Land Surveying Party Chief Unavailable Sanjay Chavez MD Primary Care Physician Unavailable Payers Type Date Identification Numbers Payment Provider Subscriber Medicare Primary Policy Number: [id number] Medicare Katie Pimentel PayID: [id number] [address] [place] [address] Commercial Policy Number: [id number] [facility] [employer] Plan [facility] Katie Pimentel PayID: [id number] [address] [place] [address] [facility] [address] [facility] B Policy Number: [id number] Transplant Clinic [facility] Katie Mccray Loren PayID: [id number] [place] [address] Problems Date Description Provider Status Onset: 08/05/2013 [...] Date Description Comments Lives With Roommate Occupation [facility] ADL's/IADL's Independent with all ADL's Cigarette Use [...] s mouth twice , Partha Watson M.D., [facility] Aspirin 01/06/ Active Tablets 81mg 1 by mouth I25.10 Farida 2017 every day , Partha Watson M.D., [facility] Clopidogrel 01/24/ Active Tablets 75mg 90tab 1 By Mouth [place] Bisulfate 2013 s Every Day , Partha Watson M.D., [facility] Gabapentin / Active Capsules 1200mg 1 po qd Unknown 0000 Levothyroxine / Active Tablets 100mcg 1 po qd Unknown Sodium 0000 Humalog / Active Solution 100Unit/ML as directed Unknown 0000 Gabrielle-Kenrick 0000/ Active Tablets 1 by mouth Unknown 0000 every day Torsemide 00/ Active Tablets 50mg 1 by mouth Unknown 0000 , and weekends Vitamin D / Active Capsules [id number] 1 cap by Unknown (Ergocalciferol 0000 mouth [...] s twice daily , Partha Watson M.D., [facility] Amlodipine 09/03/ Hx Tablets 5mg 90tab 1 By Mouth I10 Farida Mneg 2016 - s Every Day , Partha 01/06/ Molly Watson, 2018 [facility] Amlodipine 06/21/ Hx Tablets 5mg 90tab 1 [...] kg/m2 BSA (Body Surface Area) 1.85 m2 [place] body weight in kilograms 59 O2 % BldC Oximetry 99 % 01/06/2018 BP Systolic Sitting Right Arm 122 mmHg BP Diastolic Sitting Right Arm 68 mmHg Heart Rate 81 /min Respiratory Rate 18 /min Height 66 inches 5'6" Weight 167.00 lb BMI (Body Mass Index) 27.0 kg/m2 BSA (Body Surface Area) 1.85 m2 [place] body weight in kilograms 59 09/03/2016 BP Systolic Sitting Right Arm 164 mmHg BP Diastolic Sitting Right Arm 90 mmHg Heart Rate 80 /min Respiratory Rate 14 /min Height 66 inches 5'6" Weight 162.00 lb BMI (Body Mass Index) 26.1 kg/m2 BSA (Body Surface Area) 1.83 m2 [place] body weight in kilograms 59 06/21/2016 BP [...] 75.0 Laboratory test finding 12/05/2017 Performed By [facility] Clinical Staff Poc BUN/Creatinine Ratio 5.6 Low [...] K/uL 1.0-7.0 Lymph # 1.99 K/uL 1.8-7.0 [place] # 0.71 K/uL 0.3-0.9 Eos # 0.19 [...] Procedures Date CPT Code Description Status 01/06/2018 88577 EKG-Tracing And Report Completed 05/27/2017 13812 Stress Test Interpre And Report Only Completed 05/27/2017 87371 Stress Test Physician Super Only Completed 05/27/2017 21334 Myocardial Imaging Tomographic Multiple Study AT Rest Completed Or Stress 05/30/2016 65295 Stress Test Interpre And Report Only Completed 05/30/2016 26008 Stress Test Physician Super Only Completed 05/30/2016 15765 Myocardial Imaging Tomographic Multiple Study AT Rest Completed Or Stress 11/06/2015 69130 Echocardiogram Complete Completed 01/18/2015 31101 Myocardial Imaging Tomographic Multiple Study AT Rest Completed Or Stress 01/18/2015 64298 Stress Test Physician Super Only Completed 01/18/2015 88511 Stress Test Physician Super Only Completed 01/18/2015 76440 Stress Test Interpre And Report Only Completed 03/15/2014 60905 EKG Interpretation And Report Only Completed 08/10/2013 28920 EKG-Tracing And Report Completed 08/05/2013 38634 FX Metacarpal closed single w/o manipulation Completed 07/23/2013 46953 Echocardiogram Complete Completed 03/17/2013 76502 Stress Test Interpre And Report Only Completed 03/17/2013 88043 Stress Test Physician Super Only Completed 03/17/2013 69017 Stress Test Physician Super Only Completed 03/17/2013 56572 Myocardial Imaging Tomographic Multiple Study AT Rest Completed Or Stress 12/14/2007 32882 EKG Interpretation And Report Only Completed Encounters Type Date Location Provider CPT E/M Dx Office Visit 01/06/2018 1:40p Cardiology Office Radha Curtis, 569[address] I25.10 PA I42.9 E78.5 I10 N18.6 Office Visit 09/03/2016 1:10p [place] [address] I10 I25.10 E78.5 N18.6 Office Visit 06/21/2016 11:00a [place] [address] I25.10 R94.30 Z01.818 N18.6 I10 Office Visit 03/07/2015 3:30p [place] [address] I25.10 N18.6 I10 E78.5 Office Visit 10/21/2014 3:30p Cardiology Office Aubree Lee ANP 27189 414.01 585.6 272.4 401.1 424.0 Office Visit 2014 3:00p Cardiology Office Aubree Lee ANP 54645 414.01 585.6 272.4 401.1 424.0 Office Visit 07/25/2014 2:00p Cardiology Office Aubree Lee ANP 46453 414.01 585.6 401.1 272.4 424.0 Office Visit 04/12/2014 3:30p Cardiology [place]P [address] 585.6 401.1 272.4 410.80 424.0 Office Visit 11/12/2013 3:40p Cardiology [place] ANP 89999 401.1 272.4 410.80 588.9 424.0 Office Visit 09/24/2013 2:00p Cardiology Office [place]ree [place], ANP 23839 401.1 Office Visit 09/10/2013 2:50p [place]iology [place] [address] 401.1 272.4 410.80 424.0 Office Visit 08/10/2013 2:20p Cardiology [place] [address] 410.80 424.0 401.1 272.4 368.12 Office Visit 07/26/2013 11:19a Cardiology Office Lul Nunn, 49277 410.80 MD, PhD Office Visit 07/23/2013 11:29a [facility] Marquis Gonzalez, 74570 250.12 [facility] 586 Office Visit 07/23/2013 11:18a [place] [address] 410.80 Office Visit 02/05/2006 10:00a Operating Room Ruslan Mahajan M.D. 95592 388.70 Office Visit 12/25/2005 10:30a Operating Room Ruslan Mahajan M.D. 44577 380.10 Plan of Care 01/29/2018 - Radha Curtis, PAI25.10 [facility] heart disease of [place] coronary artery w/o ang pctrsNew Orders:CpmgorvowuhhecM27.9 Cardiomyopathy, unspecifiedNew Orders:InwhklqkhmfiwzJ93 Essential (primary) cnthptixdxacJ12.5 Hyperlipidemia, unspecifiedNew Labs:LDL Cholesterol ProfileLiver Function TestsAllFollow up:6 weeks with HS Echo now
[2018-02-13 18:39] VITALS: BP 155/82
--- NOTE | 2018-02-13 20:00 | UC ---
HPI Wound/Suture Re-check - HPI Summary HPI Summary: pt presents with concern for wound infection in right heel. Pt had surgery 1 month ago. Pt is concerned about infection at incision site. Pt changed the dressing today and noticed a bad odor coming from wound. Pt is a diabetic - History Of Current Complaint Chief Complaint: UCLowerExtremity Stated Complaint: RIGHT ANKLE INCISION SKIN CONCERN Time Seen by Provider: 02/13/18 19:22 Hx Obtained From: Patient Hx Last Menstrual Period: YEARS Onset/Duration: Sudden Onset, Still Present Severity: Mild Pain Intensity: 0 Pain Scale Used: 0-10 Numeric - Allergies/Home Medications Allergies/Adverse Reactions: Allergies Allergy/AdvReac Type Severity Reaction Status Date / Time No Known Allergies Allergy Verified 09/17/17 18:58 Home Medications: Home Medications Aspirin [Laya Chewable Aspirin] 81 mg PO DAILY 02/13/18 [History Confirmed ] Carvedilol [Coreg] 3.125 mg PO BID 02/13/18 [History Confirmed 02/13/18] Ferric Citrate TAB(NF) 210 mg PO TID WITH MEALS 02/13/18 [History Confirmed ] Methoxy Peg-Epoetin Beta [Mircera] 30 mcg INFUSION WEEKLY 02/13/18 [History Confirmed 02/13/18] Sacubitril/Valsartan [Entresto 24 mg-26 mg Tablet] 1 each PO DAILY 02/13/18 [ History Confirmed 02/13/18] PMH/Surg Hx/FS Hx/Imm Hx Previously Healthy: Yes Endocrine History: Diabetes Cardiovascular History: Cardiac Disease - Surgical History Surgical History: Yes Surgery Procedure, Year, and Place: TRIGGER RELEASE X 4, ([facility], [facility]- [facility] 1989' RIGHT 5th TOE SURGERY. BILATERAL CATARACT [place] [facility] [place]ARDIAC STENTS X 2,- [facility]. FISTULA PLACEMENT [address] [facility] 2015 PERITONEAL DIALYSIS CATHETER INSERTION and REMOVAL 2016 - [facility]. RIGHT CALCANEOUS ORIF AND SUBSEQUENT REPAIR - Family History Known Family History: Positive: Cardiac Disease, Hypertension, Diabetes - Mom Type II - Social History Occupation: Employed Full-time Lives: With Family Alcohol Use: None Substance Use Type: None Smoking Status (MU): Never Smoked Tobacco Have You Smoked in the Last Year: No - Immunization History Most Recent Influenza Vaccination: 11/12/2017 Most Recent Pneumonia Vaccination: 06/06/2014 Vaccination Up to Date: Yes Review of Systems All Other Systems Reviewed And Are Negative: Yes Constitutional: Positive: Negative Skin: Positive: Other - healing surgical wound right heel. Eyes: Positive: Negative ENT: Positive: Negative Respiratory: Positive: Negative Cardiovascular: Positive: Negative Gastrointestinal: Positive: Negative Genitourinary: Positive: Negative Motor: Positive: Negative Neurovascular: Positive: Negative Musculoskeletal: Positive: Edema - bilateral lower extremities Neurological: Positive: Negative Psychological: Positive: Negative Is Patient Immunocompromised?: No Physical Exam Triage Information Reviewed: Yes Appearance: Well-Appearing Vital Signs: Initial Vital Signs Temp 98.6 F 02/13/18 18:34 Pulse 90 02/13/18 18:34 Resp 15 02/13/18 18:34 BP 155/82 02/13/18 18:34 Pulse Ox 98 02/13/18 18:34 Vital Signs Reviewed: Yes Eye Exam: Normal ENT Exam: Normal Dental Exam: Normal Neck exam: Normal Respiratory Exam: Normal Respiratory: Positive: No respiratory distress Musculoskeletal: Positive: Edema @ - bilateral lower extremities Neurological Exam: Normal Psychological Exam: Normal Skin Exam: Other - wound with pink granulated tissue, mild erythema surrounding outside general border of surgical incision site. No malodorous discharge noted. no red streaking, swelling or c/o of tenderenss during exam. Course/Dx - Differential Dx - Laceration/Wound Differential Diagnoses: Cellulitis, Healing Wound - Diagnosis Provider Diagnosis: Healing of postoperative wound, Open wound of right heel Discharge - Sign-Out/Discharge Documenting (check all that apply): Patient Departure All imaging exams completed and their final reports reviewed: No Studies - Discharge Plan Condition: Stable Disposition: HOME Prescriptions: Cephalexin CAP* [Keflex 500 CAP*] 500 mg PO Q8H #30 cap Patient Education Materials: Wound Infection (ED), Acute Wound Care (ED) Referrals: Shama Husain NP [Primary Care Provider] - If Needed - Billing Disposition and Condition Condition: STABLE Disposition: Home
== END 2018-02-13 19:48 | disposition home or self-care (01) ==
LOC: UCCORT 17:20
DX: Z48.89 Encounter for other specified surgical aftercare (principal); S91.301A Unspecified open wound, right foot, initial encounter; E11.9 Type 2 diabetes mellitus without complications
CPT/HCPCS: 99212; G0463

== ENCOUNTER 2019-01-15 10:01 | Emergency (ER) | payer MEDICARE, OTHER ==
[2019-01-15 10:43] VITALS: BP 124/61
--- NOTE | 2019-01-15 11:20 | UC ---
Knee Pain HPI - HPI Summary HPI Summary: Pt c/o left knee pain and swelling s/p tripping at home on bag on floor and fell from standing height onto left knee. Pt c/o swelling and pain with weight bearing. Is unable to complete full ROM - History of Current Complaint Chief Complaint: UCLowerExtremity Stated Complaint: LEFT KNEE INJURY Time Seen by Provider: 01/15/19 10:46 Hx Obtained From: Patient Hx Last Menstrual Period: YEARS ?: No Onset/Duration: Sudden Onset, Lasting Days, Still Present Severity Initially: Moderate Severity Currently: Moderate Pain Intensity: 8 Character: Dull, Aching, Stiffness Aggravating Factor(s): Movement, Weight Bearing, Prolonged Standing, Stairs Alleviating Factor(s): Rest, Position Associated Signs And Symptoms: Positive: Swelling Able to Bear Weight: Yes - minimal - Risk Factors Septic Arthritis Risk Factor: Negative Gout Risk Factor: Age ^ 39 - Allergies/Home Medications Allergies/Adverse Reactions: Allergies Allergy/AdvReac Type Severity Reaction Status Date / Time No Known Allergies Allergy Verified 01/15/19 10:35 PMH/Surg Hx/FS Hx/Imm Hx Previously Healthy: Yes Cardiovascular History: Cardiac Disease, Hypertension - Surgical History Surgical History: Yes Surgery Procedure, Year, and Place: TRIGGER RELEASE X 4, ([place], [facility]- [facility] 1989' RIGHT 5th TOE SURGERY. BILATERAL [place]AR[place] [facility] [place] CARDIAC STENTS X 2,- [facility]. FISTULA PLACEMENT [address] [facility]. 2015 PERITONEAL DIALYSIS CATHETER INSERTION and REMOVAL 2016 - [facility]. RIGHT CALCANEOUS ORIF AND SUBSEQUENT REPAIR. RIGHT ANKLE - Family History Known Family History: Positive: Cardiac Disease, Hypertension, Diabetes - Mom Type II - Social History Occupation: Employed Full-time Lives: With Family Alcohol Use: None Substance Use Type: None Smoking Status (MU): Never Smoked Tobacco Have You Smoked in the Last Year: No - Immunization History Most Recent Influenza Vaccination: 11/12/2017 Most Recent Pneumonia Vaccination: 06/06/2014 Vaccination Up to Date: Yes Review of Systems All Other Systems Reviewed And Are Negative: Yes Constitutional: Positive: Negative Skin: Positive: Bruising - anterior left knee Eyes: Positive: Negative ENT: Positive: Negative Respiratory: Positive: Negative Cardiovascular: Positive: Negative Gastrointestinal: Positive: Negative Genitourinary: Positive: Negative Motor: Positive: Decreased ROM - left knee Neurovascular: Positive: Negative Musculoskeletal: Positive: Arthralgia, Decreased ROM, Edema, Myalgia Neurological: Positive: Negative Psychological: Positive: Negative Is Patient Immunocompromised?: No Physical Exam Triage Information Reviewed: Yes Appearance: Well-Appearing Vital Signs: Initial Vital Signs Temp 98.8 F 01/15/19 10:36 Pulse 81 01/15/19 10:36 Resp 16 01/15/19 10:36 BP 124/61 01/15/19 10:36 Pulse Ox 100 01/15/19 10:36 Vital Signs Reviewed: Yes Eye Exam: Normal ENT Exam: Normal Dental Exam: Normal Neck exam: Normal Respiratory Exam: Normal Respiratory: Positive: No respiratory distress Musculoskeletal: Positive: Strength Limited @ - left knee, ROM Limited @ - left knee, Edema @ - left knee Neurological Exam: Normal Psychological Exam: Normal Skin Exam: Normal Diagnostics - Radiology No standard instances Radiology Interpretation Completed By: Radiologist - negative for fracture Knee Pain Course/Dx - Differential Dx/Diagnosis Differential Diagnosis/HQI/PQRI: Contusion, Fracture (Closed), Internal Derangement Of Knee, Sprain, Strain Provider Diagnosis: Left knee pain, Swelling of left knee joint Discharge ED - Sign-Out/Discharge Documenting (check all that apply): Patient Departure All imaging exams completed and their final reports reviewed: Yes - Discharge Plan Condition: Stable Disposition: HOME Patient Education Materials: Swollen Knee Joint (ED), Knee Pain (ED), Safe Use of NSAIDs (ED) Referrals: Davian Calvillo MD [Medical Doctor] - As Soon As Possible Shama Husain NP [Primary Care Provider] - - Billing Disposition and Condition Condition: STABLE Disposition: Home
== END 2019-01-15 11:29 | disposition home or self-care (01) ==
LOC: UCCORT 10:01
DX: M25.562 Pain in left knee (principal); M25.462 Effusion, left knee; I10 Essential (primary) hypertension; Z82.49 Family history of ischemic heart disease and other diseases of the circulatory system
CPT/HCPCS: 99211; G0463